=== PATIENT | female | born 1985 | race Caucasian/White ===

== ENCOUNTER 2019-09-29 21:13 | Emergency (ER) | payer BC, SELFPAY ==
[2019-09-29 21:26] VITALS: BP 148/85; PULSE 98; RESP 15; TEMP 36.7; O2SAT 98; BMI 26.6
[2019-09-29 21:29] LABS: Bacteria Urine None Seen; WBC Urine None Seen (0-5/HPF)
--- NOTE | 2019-09-29 21:32 | ED_ITS ---
HPI - General Adult General Chief complaint: Urogenital-Female Stated complaint: states kidney stone Time Seen by Provider: 09/29/19 21:21 Source: patient Mode of arrival: Ambulatory Limitations: no limitations History of Present Illness HPI narrative: 34-year-old female here for evaluation of left-sided flank pain. Patient states that she has had multiple kidney stones in the past. She has had to have lithotripsy in the past. She states that her pain today is very similar to her prior history of kidney stones. Denies any fevers. Still urinating. Pain started on the left side radiating around to the front. Some nausea no vomiting. Has not tried anything for the symptoms prior to arrival. She was also complaining of a yeast infection. Related Data Home Medications Medication Instructions Recorded Confirmed [ CONTROL] #0 06/30/12 ondansetron HCl #0 06/30/12 ASA/Al Hydroxide/Ca Carbonat #0 08/16/12 (#ASPIR-LOX AD) HYDROCODONE/ACET (HYDROCODONE 1 tab PO Q4HP #0 08/16/12 BITARTRATE-ACETAMINOPHEN) acetaminophen [Tylenol Extra 1,000 mg PO Q6HP #0 08/16/12 Strength] lorazepam [Ativan] #0 10/21/16 venlafaxine [Effexor XR] 37.5 mg PO QDAY #0 10/21/16 Previous Rx's Medication Instructions Recorded fluconazole [Diflucan] 100 mg PO DAILY #1 tab 09/29/19 Allergies Allergy/AdvReac Type Severity Reaction Status Date / Time No Known Drug Allergies Allergy Verified 09/29/19 21:26 Review of Systems Constitutional Constitutional: Denies fever(s) Cardiovascular Cardiovascular: Denies chest pain and Denies dyspnea Respiratory Respiratory: Denies dyspnea Gastrointestinal Gastrointestinal: Reports abdominal pain Genitourinary Genitourinary: Reports urinary frequency, Denies dysuria, Reports urinary urgency and Reports vaginal discharge Musculoskeletal Musculoskeletal: Denies myalgias and Denies arthralgias Integumentary/Breasts Skin/Breast: Denies rash Neurologic Neurologic: Denies behavioral changes Psychiatric Psychiatric: Denies behavioral changes Hematologic/Lymphatic Hematologic/Lymphatic: Denies easy bleeding Patient History Medical History Kidney stones (Acute) Social History (Reviewed 12/13/19 @ 03:36 by MOOKIE Orourke Smoking Status: Current every day smoker Smoking Status: Current every day smoker alcohol intake frequency: holidays/special occasions only Substance Use Type: does not use Exam Initial Vital Signs Initial Vital Signs: Vital Signs Temperature 98.1 F 09/29/19 21:26 Pulse Rate 98 H 09/29/19 21:26 Respiratory Rate 15 09/29/19 21:26 Blood Pressure 148/85 H 09/29/19 21:26 Pulse Oximetry 98 09/29/19 21:26 Const General: cooperative and healthy appearing Orientation: alert and awake HENMT Head: normal to inspection and normocephalic Resp Effort & Inspection: normal respiratory effort Auscultation: clear to auscultation bilaterally Cardio Rate: regular rate Rhythm: regular rhythm GI Inspection: non-distended Palpation: soft, No firm and tender (Left flank) Back/Spine/Pelvis Back: CVA tenderness (Left) Skin Lesions: no lesions Rashes: no rashes Neuro General: alert and awake Cognition: normal cognition Speech: speech normal Extrem General: normal to inspection and capillary refill normal Psych Appearance: grossly normal and well kempt Course Orders Ordered: ED Orders 09/29/19 21:18 Urine Chlamydia Gonorrhea PCR Stat Urine Microscopic Stat 09/29/19 21:25 Basic Metabolic Panel Stat 09/29/19 21:34 CT kidney ureter bladder (KUB) Stat Discontinued Medications Fluconazole (Diflucan) 100 mg PO NOW ONE Stop: 09/29/19 23:24 Last Admin: 09/29/19 23:37 Dose: Not Given Documented by: KBROTEM Hydromorphone HCl (Dilaudid) 1 mg IV NOW ONE Stop: 09/29/19 22:48 Last Admin: 09/29/19 23:01 Dose: 1 mg Documented by: MATT Lidocaine HCl 5.4 ml/ Sodium (Chloride) 55.4 mls @ 332.4 mls/hr IV NOW ONE Stop: 09/29/19 21:32 Last Infusion: 09/29/19 22:16 Dose: 0 mls/hr Documented by: Admin: 09/29/19 21:58 Dose: 332.4 mls/hr Documented by: MATT Ketorolac Tromethamine (Toradol) 30 mg IV NOW ONE Stop: 09/29/19 21:32 Last Admin: 09/29/19 21:58 Dose: 30 mg Documented by: MATT Ondansetron HCl (Zofran) 4 mg IV NOW ONE Stop: 09/29/19 22:17 Last Admin: 09/29/19 22:19 Dose: 4 mg Documented by: MATT Vital Signs Vital signs: Vital Signs - 8 hr 09/29/19 21:26 09/29/19 23:04 09/29/19 23:36 Temperature 98.1 F Pulse Rate 98 H 77 78 Respiratory Rate 15 23 13 Blood Pressure 148/85 H 103/88 Blood Pressure [Right Arm] 123/89 Pulse Oximetry 98 97 100 Medical Decision Making Lab Data Lab results reviewed: Yes I reviewed the patient's lab results. Result diagrams: 09/29/19 21:25 Labs: Lab Results 09/29/19 09/29/19 09/29/19 Range/Units 21:18 21:18 21:25 Sodium 136 L (137-145) mmol/L Potassium 3.9 (3.4-5.1) mmol/L Chloride 100 (98-107) mmol/L Carbon Dioxide 27 (22-32) mmol/L BUN 12 (7-17) mg/dL Creatinine 0.80 (0.52-1.04) mg/dL Estimated GFR > 60.0 (>60) mL/min BUN/Creatinine Ratio 15.0 (6-22) Glucose 91 (70-100) mg/dL Calcium 9.8 (8.4-10.2) mg/dL Urine RBC 0-1/hpf (0-5/HPF) Urine WBC None seen (0-5/HPF) Ur Squamous Epith Cells 0-1 /hpf (0-5/HPF) Urine Bacteria None seen (None) Ur Culture Indicated? Cult not indicated Ur Chlamydia DNA (PCR) Not detected N gonorrhoeae DNA (PCR) Not detected Point of Care Testing Test Results Negative Urine Dip Bedside Urine Glucose Negative Bedside Urine Bilirubin - Negative Bedside Urine Ketone - Negative Urine Specific [place] 1.015 Bedside Urine Occult Blood + Bedside Urine pH 7.0 Bedside Urine Protein - Negative Bedside Urine Urobilinogen - Negative Bedside Urine Nitrite - Negative Bedside Urine Leukocytes - Negative Esterase Point of care testing: Point of Care Testing Test Results Negative Urine Dip Bedside Urine Glucose Negative Bedside Urine Bilirubin - Negative Bedside Urine Ketone - Negative Urine Specific [place] 1.015 Bedside Urine Occult Blood + Bedside Urine pH 7.0 Bedside Urine Protein - Negative Bedside Urine Urobilinogen - Negative Bedside Urine Nitrite - Negative Bedside Urine Leukocytes - Negative Esterase Imaging Data CT scan - abdomen: Radiologist's impression: Finding suggestive of a functional cyst in the left adnexa measuring up to 4.8 cm. Other considerations are also possible but less likely. Consider pelvic ultrasound for further evaluation Bilateral nephrolithiasis is described MDM Narrative Medical decision making narrative: Patient does not have a urinary tract infection. Does have blood in her urine. Kidney functions unremarkable. Had a discussion with her regarding her symptoms. Patient would like to have a CT scan to further evaluate the location and size of her kidney stone. The CT scan did not necessarily describe a ureteral stone. She does have small bilateral kidney stones. She also has a 4.8 cm cyst in the left adnexa. Patient is not particularly tender over this area. She did feel better after medications here in the ER. She was afebrile. She does describe which she thinks is a yeast infection. Patient states that she is somewhat concerned about STDs. GC chlamydia are negative. No indication for antibiotics. 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 We did discuss the cyst in the left adnexa. She was given return precautions and follow-up instructions. She expressed understanding and agreement with plan. Discharge Plan Departure Patient Disposition: Home Clinical Impression: Ovarian cyst Qualifiers: Laterality: left Qualified Code(s): N83.202 - Unspecified ovarian cyst, left side Abdominal pain Qualifiers: Abdominal location: unspecified location Qualified Code(s): R10.9 - Unspecified abdominal pain Discharge Date/Time: 09/29/19 23:38 Instructions: DI for Ovarian Cyst, DI for Abdominal Pain-Adult Activity Restrictions/Additional Instructions: You can take ibuprofen for the abdominal pain. I do recommend you follow-up with your primary provider and your OB provider about the ovarian cyst. Return to the emergency department for any new or worsening symptoms Prescriptions: New fluconazole [Diflucan] 100 mg tablet 100 mg PO DAILY Qty: 1 RF: 0 No Action ondansetron HCl 4 MG tablet Qty: 0 RF: 0 [ CONTROL] Qty: 0 RF: 0 ASA/Al Hydroxide/Ca Carbonat (#ASPIR-LOX AD) Qty: 0 RF: 0 acetaminophen [Tylenol Extra Strength] 500 MG tablet 1,000 mg PO Q6HP Qty: 0 RF: 0 HYDROCODONE/ACET (HYDROCODONE BITARTRATE-ACETAMINOPHEN) 1 tab PO Q4HP Qty: 0 RF: 0 venlafaxine [Effexor XR] 37.5 MG capsule,extended release 24hr 37.5 mg PO QDAY Qty: 0 RF: 0 lorazepam [Ativan] 0.5 MG tablet Qty: 0 RF: 0 Referrals: Meng Ramirez DO [Primary Care Provider] -
--- NOTE | 2019-09-29 21:34 | DI.CT.S_ITS ---
PROCEDURE: CT KIDNEY URETER BLADDER (KUB) INDICATIONS: Left-sided pain concern for stone TECHNIQUE: Noncontrast 5 mm thick sections acquired from the diaphragms to the symphysis. 5 mm thick coronal and sagittal reformats were then performed. For radiation dose reduction, the following was used: automated exposure control, adjustment of mA and/or kV according to patient size. COMPARISON: Merged With [facility], CT, IVP (ABD & PEL WWO CONTRAST), 11/19/2017, 16:45. [facility], CT, CT KUB, 12/23/2018, 21:41. Merged With [facility], CT, KIDNEY/ URETER/BLADDER, 11/21/2016, 12:10. FINDINGS: Image quality: Excellent. Lung bases: Lung bases are clear. Heart size is normal. Urinary system: There are small renal calculi bilaterally with 4 tiny 1 mm stone in left kidney and 3 tiny 1-2 mm stones in right kidney. Both kidneys are normal in size. No No hydronephrosis or perinephric fat stranding. A 1.9 cm low density in nodule left kidney is compatible with a cyst. There is actual renal pelvis of the left kidney. Both ureters appear non-dilated throughout their expected courses. No ureteral stones. Bladder wall thickness is normal; no calcified bladder stones. Other solid organs: Liver is normal in size. Gallbladder is normal. Pancreas is normal in contours. Spleen is normal in size. No adrenal nodules. Peritoneum and bowel: Unenhanced bowel loops demonstrate normal wall thickness and caliber. No free fluid or air. Nodes and vessels: No retroperitoneal or mesenteric adenopathy by size criteria. Aorta and inferior vena cava are normal in caliber. Abdominal wall: No ventral hernias. Uterus is normal. There is a 4.7 cm ovarian cyst in the left adnexa. No pathological free fluid. Pelvis: No free pelvic fluid. No inguinal hernias or adenopathy. Bones: No suspicious bony lesions. No vertebral body compression fractures. IMPRESSION: 1. Nephrolithiasis with small renal calculi bilaterally. No hydronephrosis. 2. There is a 4.7 cm left ovarian cyst. Recommend pelvic ultrasound for followup. No significant discrepancy with the shift superintendent radiology preliminary report. Dictated by: Nona Oconnor M.D. on 09/30/2019 at 7:15 Approved by: Nona Oconnor M.D. on 09/30/2019 at 7:23
[2019-09-29 21:38] LABS: Culture Indicated Urine Cult Not Indicated; RBC Urine 0-1/HPF (0-5/HPF); Squamous Epithelial Cell Urine 0-1 /HPF (0-5/HPF)
[2019-09-29] MEDS: KETOROLAC 60 MG/2 ML VIAL 30 MG IV (21:58)
[2019-09-29] MEDS: LIDOCAINE 2% 5.4 ML in SODIUM CHLORIDE 0.9% 50 ML 332.4 ML IV (21:58)
[2019-09-29 22:11] LABS: Blood Urea Nitrogen 12 mg/dL (7-17); Calcium 9.8 mg/dL (8.4-10.2); Carbon Dioxide 27 mmol/L (22-32); Chloride 100 mmol/L (98-107); Estimated Glomerular Filt Rate > 60.0 mL/min (>60); Glucose 91 mg/dL (70-100); HEMOLYSIS < 15 (0-50); Potassium 3.9 mmol/L (3.4-5.1); Sodium 136 mmol/L (137-145)
[2019-09-29] MEDS: ONDANSETRON 4 MG/2 ML INJ IV (22:19)
[2019-09-29] MEDS: HYDROMORPHONE 1 MG INJ IV (23:01)
[2019-09-29 23:04] VITALS: BP 123/89; PULSE 77; RESP 23; O2SAT 97
[2019-09-29 23:36] VITALS: BP 103/88; PULSE 78; RESP 13; O2SAT 100
[2019-09-30 00:56] LABS: Urine N gonorrhoeae NOT DETECTED
[2019-09-30 00:59] LABS: Urine Chlamydia NOT DETECTED
== END 2019-09-29 23:38 | disposition home or self-care (01) ==
PROVIDERS: Emergency Provider Emergency Medicine; Family Provider Family Medicine; PCP Family Medicine
DX: N83.202 Unspecified ovarian cyst, left side (principal); R10.9 Unspecified abdominal pain
CPT/HCPCS: 36415; 74176; 80048; 81003; 81015; 81025; 87491; 87591; 96365; 96375; 99284; J1170; J1885; J2405

== ENCOUNTER 2019-12-06 17:25 | Emergency (ER) | payer BC, SELFPAY ==
[2019-12-06 17:31] VITALS: BP 181/92; PULSE 103; RESP 24; TEMP 37.2; O2SAT 100
[2019-12-06 18:03] LABS: Add Manual Diff / Slide Review NO; Basophils Absolute Auto 100 /uL (0-100); Basophils Percent Auto 0.5 % (0-2); Eosinophils Absolute Auto 0 /uL (0-450); Eosinophils Percent Auto 0.1 % (2-4); Hematocrit 30.4 % (36-46); Hemoglobin 9.6 g/dL (12.0-16.0); Lymphocytes Absolute Auto 1300 /uL (1100-4500); Lymphocytes Percent Auto 11.1 % (25-40); Mean Corpuscular HGB Conc 31.5 % (30-36); Mean Corpuscular Hemoglobin 23.6 PG (26-34); Monocytes Absolute Auto 400 /uL (0-900); Monocytes Percent Auto 3.1 % (3-14); Neutrophils Absolute Auto 9700 /uL (1500-7000); Neutrophils Percent Auto 85.2 % (50-75); Platelet Count 362 X10^3/uL (150-400); Red Blood Cell Count 4.06 X10^6/uL (4.0-5.2); Red Cell Distribution Width 16.2 % (11.6-14.8); White Blood Cell Count 11.4 X10^3/uL (4.5-11.0)
--- NOTE | 2019-12-06 18:04 | ED_ITS ---
HPI - General Chief complaint: Abdominal Pain Stated complaint: excruciating pain/poss kidney stones or infection Time Seen by Provider: 12/06/19 18:04 Source: patient and old records reviewed Mode of arrival: Ambulatory Limitations: no limitations History of Present Illness HPI Narrative: This is a 34-year-old female who comes to the emergency department with complaint of left-sided abdominal and back pain. Patient states it came on suddenly about an hour to 2 hours ago. Patient states that it feels somewhat similar to when she had kidney stones but it is lower down the typically in the front. She is nauseated when she has significant amount of pain. She has not had any fevers. She has not had any vomiting. She states she was not have any pain prior to this. She has not had any issues with diarrhea, constipation or black or bloody stools. She has had some frequency but no dysuria urgency. No vaginal bleeding or discharge patient test is positive she states she has been on oral contraceptives and this is an unexpected . She is not sure when her last period is. Patient is on lamotrigine which was started about a week ago for bipolar 1 which she states has been helpful she states that her symptoms have been mild and she does not feel that they are causing issues at this time. She occasionally takes trazodone to help with sleep. 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 She follows with Dr. Reece at the [facility]. Hx Last Menstrual Period: patient unsure, on OCP's Patient : Yes Related Data Home Medications Medication Instructions Recorded Confirmed lamotrigine 25 mg PO QPM 12/06/19 12/06/19 norgestimate-ethinyl estradiol 1 tab PO QPM 12/06/19 12/06/19 [Ortho Tri-Cyclen (28)] trazodone 50 mg PO BEDTIME PRN 12/06/19 12/06/19 Allergies Allergy/AdvReac Type Severity Reaction Status Date / Time No Known Drug Allergies Allergy Verified 09/29/19 21:26 Review of Systems Review of Systems ROS Unobtainable: All systems reviewed & are unremarkable except as noted in HPI and below PMFSH - Past Medical History Additional medical history: bipolar 1 hx substance abuse with xanax and pain medications Surgical history: Reports appendectomy [employer] history: Reports No [employer] History Hx Last Menstrual Period: patient unsure, on OCP's Patient : Yes Psychiatric history: Reports bipolar Exam Narrative Exam Narrative: GENERAL: Alert and oriented x three, well-nourished female in mild distress. HEENT: Head normocephalic, atraumatic, EOMI, pupils reactive, face symmetric, moist mucous membranes NECK: Supple, full range of motion CARDIOVASCULAR: Regular rate and rhythm without murmurs, rubs or gallops. RESPIRATORY: Breath sounds equal bilaterally, no wheezes rales or rhonchi. ABDOMEN: Soft, positive moderate left lower and left upper abdominal pain. Normoactive bowel sounds all 4 quadrants. No guarding or rebound, rigidity, no mass. Unable to palpate uterus abdominally. No bruit or pulsatile mass. : Bilateral CVA tenderness EXTREMITIES: Normal range of motion, no clubbing or edema. Neurovascularly intact NEUROLOGICAL: Cranial nerves II through XII grossly intact. Moving all extremities SKIN: Warm, dry, no petechiae, no rashes or lesions. Initial Vital Signs Initial Vital Signs: Vital Signs Temperature 98.9 F 12/06/19 17:31 Pulse Rate 103 H 12/06/19 17:31 Respiratory Rate 24 12/06/19 17:31 Blood Pressure 181/92 H 12/06/19 17:31 Pulse Oximetry 100 12/06/19 17:31 Course Orders Ordered: ED Orders 12/06/19 17:35 ABO RH Type Stat Basic Metabolic Panel Stat Complete Blood Count AUTO DIFF Stat HCG Quantitative /Beta subunit Stat 12/06/19 18:20 US abdomen complete Stat US pelvic complete Stat 12/06/19 18:57 Lamotrigine Lamictal Stat Discontinued Medications Acetaminophen (Tylenol) 975 mg PO NOW ONE Stop: 12/06/19 18:21 Last Admin: 12/06/19 18:40 Dose: 975 mg Documented by: JAQUELINE Sodium Chloride (Normal Saline 0.9%) 1,000 mls @ 1,000 mls/hr IV BOLUS ONE Stop: 12/06/19 19:19 Last Infusion: 12/06/19 20:46 Dose: 0 mls/hr Documented by: Admin: 12/06/19 18:40 Dose: 1,000 mls/hr Documented by: JAQUELINE Ketorolac Tromethamine (Toradol) 15 mg IV NOW ONE Stop: 12/06/19 20:32 Last Admin: 12/06/19 20:46 Dose: 15 mg Documented by: MARIETTA Ondansetron HCl (Zofran) 4 mg IV NOW ONE Stop: 12/06/19 18:26 Last Admin: 12/06/19 18:40 Dose: 4 mg Documented by: JAQUELINE Vital Signs Vital signs: Vital Signs - 8 hr 12/06/19 17:31 12/06/19 18:54 12/06/19 21:02 Temperature 98.9 F Pulse Rate 88 72 Pulse Rate [Right] 103 H Respiratory Rate 24 16 16 Blood Pressure 129/80 Blood Pressure [Right Arm] 181/92 H 129/75 Pulse Oximetry 100 100 100 MDM - OB/Uterine Contractions Lab Data Attestation: I reviewed the patient's lab results. Result diagrams: 12/06/19 17:35 12/06/19 17:35 Labs: Lab Results 12/06/19 12/06/19 12/06/19 Range/Units 17:35 17:35 17:35 WBC 11.4 H (4.5-11.0) X10^3/uL RBC 4.06 (4.0-5.2) X10^6/uL Hgb 9.6 L (12.0-16.0) g/dL Hct 30.4 L (36-46) % MCV 75.0 L (80-100) fL MCH 23.6 L (26-34) PG MCHC 31.5 (30-36) % RDW 16.2 H (11.6-14.8) % Plt Count 362 (150-400) X10^3/uL Neut % (Auto) 85.2 H (50-75) % Lymph % (Auto) 11.1 L (25-40) % [place] % (Auto) 3.1 (3-14) % Eos % (Auto) 0.1 L (2-4) % Baso % (Auto) 0.5 (0-2) % Neut # (Auto) 9700 H (5667-0658) /uL Lymph # (Auto) 1300 (2836-2701) /uL [place] # (Auto) 400 (0-900) /uL Eos # (Auto) 0 (0-450) /uL Baso # (Auto) 100 (0-100) /uL Sodium 137 (137-145) mmol/L Potassium 4.2 (3.4-5.1) mmol/L Chloride 105 (98-107) mmol/L Carbon Dioxide 22 (22-32) mmol/L BUN 7 (7-17) mg/dL Creatinine 0.70 (0.52-1.04) mg/dL Estimated GFR > 60.0 (>60) mL/min BUN/Creatinine Ratio 10.0 (6-22) Glucose 103 H (70-100) mg/dL Calcium 10.0 (8.4-10.2) mg/dL HCG, Quant 252.30 mIU/mL Blood Type 12/06/19 Range/Units 17:35 WBC (4.5-11.0) X10^3/uL RBC (4.0-5.2) X10^6/uL Hgb (12.0-16.0) g/dL Hct (36-46) % MCV (80-100) fL MCH (26-34) PG MCHC (30-36) % RDW (11.6-14.8) % Plt Count (150-400) X10^3/uL Neut % (Auto) (50-75) % Lymph % (Auto) (25-40) % [place] % (Auto) (3-14) % Eos % (Auto) (2-4) % Baso % (Auto) (0-2) % Neut # (Auto) (1630-2422) /uL Lymph # (Auto) (2655-7676) /uL [place] # (Auto) (0-900) /uL Eos # (Auto) (0-450) /uL Baso # (Auto) (0-100) /uL Sodium (137-145) mmol/L Potassium (3.4-5.1) mmol/L Chloride (98-107) mmol/L Carbon Dioxide (22-32) mmol/L BUN (7-17) mg/dL Creatinine (0.52-1.04) mg/dL Estimated GFR (>60) mL/min BUN/Creatinine Ratio (6-22) Glucose (70-100) mg/dL Calcium (8.4-10.2) mg/dL HCG, Quant mIU/mL Blood Type O Positive Point of Care Testing Test Results Positive Urine Dip Bedside Urine Glucose Negative Bedside Urine Bilirubin - Negative Bedside Urine Ketone - Negative Urine Specific [place] 1.010 Bedside Urine Occult Blood - Negative Bedside Urine pH 6.5 Bedside Urine Protein - Negative Bedside Urine Urobilinogen - Negative Bedside Urine Nitrite - Negative Bedside Urine Leukocytes - Negative Esterase Imaging Data US - OB: Radiologist's Impression: [address] [id number] Ultrasound Report Signed Patient: Kristine Renteria CMR#: [id number] : 1985Acct:[id number] Age/Sex: 34 / FDate of Service: 12/06/19 Loc: ED Accession Number: [id number] Procedure: US pelvic complete Ordering Provider: Kamilla Malcolm D.O. PROCEDURE: US PELVIC COMPLETE INDICATIONS: POSITIVE HCG; PAIN TECHNIQUE: Real-time scanning was performed of the pelvic organs, with image documentation. Additional endovaginal scanning was necessary due to incomplete visualization of the adnexal and endometrial structures by transabdominal scanning. COMPARISON: [facility], US, US ABDOMEN COMPLETE, 12/06/2019, 19:06. FINDINGS: Transabdominal scanning: Limited scanning through the kidneys shows no hydronephrosis. No definite pathologic free abdominal or pelvic fluid, but there is a small amount of free fluid in the posterior cul-de-sac containing low level internal echoes. Endovaginal scanning: Uterus: Uterus is normal in size at 4.9 x 6.7 x 9.4 cm. The endometrium measures 30.6 mm in combined thickness. There is no visualized evidence of an intrauterine gestation. Note is made of a left-sided anterior intramural 2.3 cm maximal dimension fibroid. Ovaries: The right ovary measures 2.3 x 1.7 x 1.5 cm and demonstrates a complex masslike structure measuring 1.1 x 1.6 x 0.9 cm with minimal elevated peripheral vascularity. The left ovary measures 2.0 x 3.9 x 4.3 cm and contains a 1.9 cm and 1.3 cm complex cyst with increased peripheral vascularity. IMPRESSION: 13.6 mm endometrial lining thickness, well-visualized, without sonographic evidence of an intrauterine gestation. Please correlate with quantitative beta hCG given the fact that the ovaries bilaterally containing complex cystic structures with increased peripheral vascularity which could represent an ectopic is, or inflam matory cysts. There is a minimal degree of free fluid in the posterior cul-de-sac containing low level internal echoes. This could represent a manifestation of slight hemoperitoneum in the setting of ectopic but a ruptured ovarian cyst with hemorrhage associated also could produce exactly that appearance. Quantitative beta hCG is necessary for accurate interpretation of these findings. Dictated by: Jacob Winters M.D. on 12/06/2019 at 20:02 Approved by: Jacob Winters M.D. on 12/06/2019 at 20:06 US - abdomen: Radiologist's Impression: Kristine Renteria 34 F [address] [address] Ultrasound Report Signed Patient: Kristine Renteria CMR#: [id number] : 1985Acct:[id number] Age/Sex: 34 / FDate of Service: 12/06/19 Loc: ED Accession Number: [id number] Procedure: US abdomen complete Ordering Provider: Kamilla Malcolm D.O. PROCEDURE: US ABDOMEN COMPLETE INDICATIONS: BACK PAIN TECHNIQUE: Real-time scanning was performed of the abdominal and retroperitoneal organs, with image documentation. COMPARISON: None. FINDINGS: Liver: Liver is normal in size and homogeneous in echotexture. Gallbladder: The gallbladder appears normal Biliary ducts: Intrahepatic bile ducts are non-dilated. Extrahepatic bile duct caliber measures 5.4 mm. Normal is 6-7 mm or less in diameter, or 10 mm or less post-cholecystectomy. Pancreas: Not visualized due to bowel gas. Spleen: Spleen is normal in size and homogeneous in echotexture. Kidneys: Kidneys are normal in size and echotexture. Right kidney measures 11.6 cm long; left kidney measures 12.8 cm long. No hydronephrosis or left-sided nephrolithiasis. No solid masses. There is a 5 mm nonobstructing stone at the upper collecting system of the right kidney and a simple cyst at the left kidney measuring only 2.2 cm in maximal dimension. Aorta: Visualized aorta is normal in caliber at less than 3 cm. Iliacs: Proximal common iliac arteries are normal in caliber at less than 2.5 cm. IVC: Intrahepatic inferior vena cava is patent. Miscellaneous: No free abdominal fluid. Depending on the clinical status followup by CT KUB may become necessary. An ultrasound study will not frequently visualized ureteral calculi due to overlying bowel gas. The pancreas could not be seen due to bowel gas, for example. IMPRESSION: 5 mm nonobstructive right renal collecting system calculus, no left- sided urinary tract stone is found. Dictated by: Jacob Winters M.D. on 12/06/2019 at 19:59 Approved by: Jacob Winters M.D. on 12/06/2019 at 20:02 [facility] Narrative Medical decision making narrative: Patient comes in with left abdominal and back pain. She states it is somewhat similar to kidney stones but she also has a positive test which was unexpected and she is unsure of her dates. HCG and lab work was ordered patient is slightly tachycardic her hemoglobin is 9 with no comparisons. But patient states this is improved from her normal hemoglobin. Plan for evaluation for ectopic although she has not had any vaginal bleeding noted. Signs of infection. White count is 11.4 she has microcytosis on her CBC. Electrolytes are normal with normal renal function. Blood type is O positive. Patient imaging shows a stone in the right kidney but no no stone noted on the left. Patient's pelvic ultrasound shows no evidence of intrauterine gestation, ovaries bilaterally containing complex structures with increased peripheral vascularity which could represent ectopic or inflammatory cysts there is a minimal degree of free fluid in the posterior cul-de-sac could represent a slight hemoperitoneum but a ruptured ovarian cyst with hemorrhage associated could produce that as well. Case was discussed with Dr. Guallpa, we discussed with an hCG of 250 were not likely to be able to visualize a could not completely rule out ectopic the patient has been hemodynamically stable with known anemia according the patient herself. Patient plan is for repeat hCG in 48 hours and follow-up with OB doctor Guallpa states they are happy to follow with her. Discussed with patient if she has any difficulty with follow-up to return here for repeat HCG in assistance. I discussed signs and symptoms. Patient has been taking lamotrigine and I encouraged her to discuss with OBGYN unless she feels she would be safe to stop the medication. Discharge Plan Departure Patient Disposition: Home Clinical Impression: Abdominal pain affecting Discharge Date/Time: 12/06/19 21:04 Instructions: DI for Abdominal Pain -- Early Activity Restrictions/Additional Instructions: Follow up for repeat HCG level in 2 days and for follow up with [employer] for recheck. Call for an appointment. If you have difficulty getting into the OB office for repeat HCG level you may return to the ER. Your HCG level today is 253 at this level we cannot often visualize a and cannot rule out possible ectopic . You may take Tylenol up to 1000mg every 8 hours for pain. Return to ER for fevers greater than 100.4F, rapidly worsening pain, persistent vomiting, passing out, abdominal or flank pain, vaginal bleeding, black or bloody stools or other new or concerning symptoms. Prescriptions: No Action trazodone 50 mg Tablet 50 mg PO BEDTIME PRN (Reason: Sleep) RF: 0 lamotrigine 25 mg Tablet 25 mg PO QPM RF: 0 norgestimate-ethinyl estradiol [Ortho Tri-Cyclen (28)] 0.18/0.215/0.25 mg-35 mcg (28) Tablet 1 tab PO QPM RF: 0 Referrals: Danielle Guallpa CNM [Advanced Assistant Kitchen Manager] - Salbador Ludwig [Primary Care Provider] -
[2019-12-06 18:14] LABS: Blood Urea Nitrogen 7 mg/dL (7-17); Carbon Dioxide 22 mmol/L (22-32); Chloride 105 mmol/L (98-107); Estimated Glomerular Filt Rate > 60.0 mL/min (>60); Glucose 103 mg/dL (70-100); HEMOLYSIS < 15 (0-50); Potassium 4.2 mmol/L (3.4-5.1); Sodium 137 mmol/L (137-145)
--- NOTE | 2019-12-06 18:20 | DI.US.S_ITS ---
PROCEDURE: US PELVIC COMPLETE INDICATIONS: POSITIVE HCG; PAIN TECHNIQUE: Real-time scanning was performed of the pelvic organs, with image documentation. Additional endovaginal scanning was necessary due to incomplete visualization of the adnexal and endometrial structures by transabdominal scanning. COMPARISON: [facility], US, US ABDOMEN COMPLETE, 12/06/2019, 19:06. FINDINGS: Transabdominal scanning: Limited scanning through the kidneys shows no hydronephrosis. No definite pathologic free abdominal or pelvic fluid, but there is a small amount of free fluid in the posterior cul-de-sac containing low level internal echoes. Endovaginal scanning: Uterus: Uterus is normal in size at 4.9 x 6.7 x 9.4 cm. The endometrium measures 30.6 mm in combined thickness. There is no visualized evidence of an intrauterine gestation. Note is made of a left-sided anterior intramural 2.3 cm maximal dimension fibroid. Ovaries: The right ovary measures 2.3 x 1.7 x 1.5 cm and demonstrates a complex masslike structure measuring 1.1 x 1.6 x 0.9 cm with minimal elevated peripheral vascularity. The left ovary measures 2.0 x 3.9 x 4.3 cm and contains a 1.9 cm and 1.3 cm complex cyst with increased peripheral vascularity. IMPRESSION: 13.6 mm endometrial lining thickness, well-visualized, without sonographic evidence of an intrauterine gestation. Please correlate with quantitative beta hCG given the fact that the ovaries bilaterally containing complex cystic structures with increased peripheral vascularity which could represent an ectopic is, or inflammatory cysts. There is a minimal degree of free fluid in the posterior cul-de-sac containing low level internal echoes. This could represent a manifestation of slight hemoperitoneum in the setting of ectopic but a ruptured ovarian cyst with hemorrhage associated also could produce exactly that appearance. Quantitative beta hCG is necessary for accurate interpretation of these findings. Dictated by: Jacob Winters M.D. on 12/06/2019 at 20:02 Approved by: Jacob Winters M.D. on 12/06/2019 at 20:06
--- NOTE | 2019-12-06 18:20 | DI.US.S_ITS ---
PROCEDURE: US ABDOMEN COMPLETE INDICATIONS: BACK PAIN TECHNIQUE: Real-time scanning was performed of the abdominal and retroperitoneal organs, with image documentation. COMPARISON: None. FINDINGS: Liver: Liver is normal in size and homogeneous in echotexture. Gallbladder: The gallbladder appears normal Biliary ducts: Intrahepatic bile ducts are non-dilated. Extrahepatic bile duct caliber measures 5.4 mm. Normal is 6-7 mm or less in diameter, or 10 mm or less post-cholecystectomy. Pancreas: Not visualized due to bowel gas. Spleen: Spleen is normal in size and homogeneous in echotexture. Kidneys: Kidneys are normal in size and echotexture. Right kidney measures 11.6 cm long; left kidney measures 12.8 cm long. No hydronephrosis or left-sided nephrolithiasis. No solid masses. There is a 5 mm nonobstructing stone at the upper collecting system of the right kidney and a simple cyst at the left kidney measuring only 2.2 cm in maximal dimension. Aorta: Visualized aorta is normal in caliber at less than 3 cm. Iliacs: Proximal common iliac arteries are normal in caliber at less than 2.5 cm. IVC: Intrahepatic inferior vena cava is patent. Miscellaneous: No free abdominal fluid. Depending on the clinical status followup by CT KUB may become necessary. An ultrasound study will not frequently visualized ureteral calculi due to overlying bowel gas. The pancreas could not be seen due to bowel gas, for example. IMPRESSION: 5 mm nonobstructive right renal collecting system calculus, no left-sided urinary tract stone is found. Dictated by: Jacob Winters M.D. on 12/06/2019 at 19:59 Approved by: Jacob Winters M.D. on 12/06/2019 at 20:02
[2019-12-06] MEDS: ONDANSETRON 4 MG/2 ML INJ IV (18:40)
[2019-12-06] MEDS: SODIUM CHLORIDE 0.9% 1,000 ML 1000 ML IV (18:40)
[2019-12-06] MEDS: ACETAMINOPHEN 325 MG TABLET 975 MG PO (18:40)
[2019-12-06 18:54] VITALS: BP 129/75; PULSE 88; RESP 16; O2SAT 100
[2019-12-06] MEDS: KETOROLAC 60 MG/2 ML VIAL 15 MG IV (20:46)
[2019-12-06 21:02] VITALS: BP 129/80; PULSE 72; RESP 16; O2SAT 100
[2019-12-12 09:30] LABS: Lamotrigine Lamictal < 0.5 mcg/mL (4.0-18.0)
== END 2019-12-06 21:04 | disposition home or self-care (01) ==
PROVIDERS: Emergency Medicine; Emergency Provider Emergency Medicine; Family Provider Family Medicine; PCP Family Medicine
DX: O26.899 Other specified pregnancy related conditions, unspecified trimester (principal); R10.9 Unspecified abdominal pain; M54.9 Dorsalgia, unspecified
CPT/HCPCS: 36415; 76700; 76830; 76856; 80048; 80175; 81003; 81025; 84702; 85025; 86900; 86901; 96361; 96374; 96375; 99284; J1885; J2405

== ENCOUNTER → 2019-12-09 12:45 | Outpatient (CLI) | payer BC, SELFPAY ==
[2019-12-09 13:33] LABS: HCG Quantitative /Beta subunit 1092.1 mIU/mL
== END ==
PROVIDERS: Family Provider Family Medicine; PCP Family Medicine; Referring Provider Nurse Practitioner Obstetrics & Gynecology; Visit Provider Nurse Practitioner Obstetrics & Gynecology
DX: Z34.01 Encounter for supervision of normal first pregnancy, first trimester (principal); R10.2 Pelvic and perineal pain
CPT/HCPCS: 36415; 84702

== ENCOUNTER 2020-07-12 05:16 | Emergency (ER) | payer OTHER, SELFPAY ==
[2020-07-12] VITALS (7 sets, daily range): BP systolic 129–147; BP diastolic 75–98; PULSE 53–86; RESP 15–17; TEMP 36.9; O2SAT 96–99; BMI 29.9
--- NOTE | 2020-07-12 05:50 | ED.ABDPAIN ---
HPI - Abdominal Pain <Meng Hughes MD - Last Filed: 07/12/20 18:05> General Chief Complaint: Urogenital-Female Stated Complaint: REALLY BAD ABD PAIN X 2 DAYS Time Seen by Provider: 07/12/20 05:27 Source: patient Mode of arrival: Ambulatory Limitations: no limitations History of Present Illness HPI narrative: [facility] and treated for UTI. Started with left lower pelvic pain and slight left flank pain. Patient states history of kidney stones and pyelonephritis in the past. She states also has history UTIs. Pain worsened today. Also had some vaginal spotting. Patient has a Mirena/IUD. Not had a period since implantation earlier this year. Has had nausea. No fever chills. Patient states feels similar to kidney stone or pyelonephritis in the past with this change pain in the past 2 days. Patient treated with Keflex for UTI from [facility]. 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 Related Data Home Medications ?Medication ?Instructions ?Recorded ?Confirmed alprazolam 1 mg tablet 1 mg PO BID 04/12/24 05/30/24 clonazepam 1 mg tablet 1 mg PO BID 04/12/24 05/30/24 dextroamphetamine-amphetamine 5 mg 5 mg PO DAILY 04/12/24 05/30/24 tablet (Adderall) folic acid-vit B6-vit B12 2.5 1 tab PO DAILY 04/12/24 05/30/24 mg-25 mg-2 mg tablet (WesTab Max) ondansetron 4 mg disintegrating 8 mg PO TID-QID PRN nausea and 04/12/24 05/30/24 tablet vomiting sumatriptan succinate 100 mg tablet See Rx Instructions PO .COMPLEX 04/12/24 05/30/24 Previous Rx's ?Medication ?Instructions ?Recorded cyclobenzaprine 10 mg tablet 10 mg PO BID PRN muscle spasm #28 09/03/21 tabs phenazopyridine 200 mg tablet 200 mg PO TID PRN pain 6 doses #6 10/20/21 (Pyridium) tabs ibuprofen 800 mg tablet 800 mg PO TID PRN pain #30 tabs 01/28/23 Allergies Allergy/AdvReac Type Severity Reaction Status Date / Time prochlorperazine (From AdvReac Verified 05/30/24 13:45 Compazine) Review of Systems <Meng Hughes MD - Last Filed: 07/12/20 18:05> Review of Systems Narrative: GENERAL: Denies chills, fatigue, malaise, fever, sweats. HEENT: Denies sinus pain, ear pain, sore throat, difficulty swallowing, dizziness. RESPIRATORY: Denies dyspnea, cough, wheezing, hemoptysis, sputum. CARDIOVASCULAR: Denies chest pain, palpitations, orthopnea, edema, GASTROINTESTINAL: Complains nausea, denies vomiting, complains abdominal pain, denies diarrhea, constipation, melena. : Complains dysuria, frequency, denies incontinence, hematuria, urinary retention. MUSCULOSKELETAL: denies weakness, joint pain, or bony pain SKIN: Denies rash, skin lesions NEUROLOGIC: Denies weakness, headache, numbness, change in speech, confusion, seizures, incoordination. PSYCHIATRIC: No concerning psychosocial issues. ROS Unobtainable: All systems reviewed & are unremarkable except as noted in HPI and below Patient History <Meng Hughes MD - Last Filed: 07/12/20 18:05> Medical History (Updated 05/27/24 @ 10:38 by Leticia Ortiz RN) S/P extracorporeal shock wave therapy Anemia Chronic UTI PTSD (post-traumatic stress disorder) Renal colic on right side History of nephrolithiasis Right nephrolithiasis History of posttraumatic stress disorder (PTSD) Hx of nephrolithotomy with removal of calculi History of chronic urinary tract infection Hx of cervical cancer History of anemia Migraine Kidney stones Surgical History (Updated 04/19/24 @ 08:40 by Yasmin Corcoran RN) Hx of cystoscopy History of ureter stent Hx of appendectomy Social History marital status: number of children: 3 household members: none occupational status: employed 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 Well-nourished, well-developed patient, in no distress, not toxic HEAD: Atraumatic. Normocephalic. EYES: Pupils equal round and reactive. Extraocular motions intact. No scleral icterus. No injection or drainage. ENT: Nose without bleeding, purulent drainage. Throat without erythema, tonsillar hypertrophy or exudate. Airway patent. NECK: Trachea midline. Non tender CARDIOVASCULAR: Regular rate and rhythm without murmurs, gallops, or rubs. RESPIRATORY: Clear to auscultation. Breath sounds equal bilaterally. No wheezes, rales, or rhonchi. GASTROINTESTINAL: Abdomen soft, tender to touch left lower quadrant, no rebound tenderness bowel sounds present, no peritoneal signs : will Thompson at bedside to assist, normal external exam. No vaginal discharge or bleeding. No discharge. No CMT. No lesions. Mild left adnexal tenderness EXTREMITIES: No edema or joint tenderness. BACK: Nontender without deformity or crepitance. Mild left CVA tenderness NEURO: AOx4. SKIN: No rash or erythema of visible areas PSYCH: Not anxious, is cooperative Initial Vital Signs Initial Vital Signs: Vital Signs Temperature 98.4 F 07/12/20 05:24 Pulse Rate 86 07/12/20 05:24 Respiratory Rate 17 07/12/20 05:24 Blood Pressure 135/95 H 07/12/20 05:24 Pulse Oximetry 99 07/12/20 05:24 Oxygen Delivery Method Room Air 07/12/20 05:24 <Annamarie Mojica MD - Last Filed: 07/12/20 10:04> Initial Vital Signs Initial Vital Signs: Vital Signs Temperature 98.4 F 07/12/20 05:24 Pulse Rate 86 07/12/20 05:24 Respiratory Rate 17 07/12/20 05:24 Blood Pressure 135/95 H 07/12/20 05:24 Pulse Oximetry 99 07/12/20 05:24 Oxygen Delivery Method Room Air 07/12/20 05:24 Course <Meng Hughes MD - Last Filed: 07/12/20 18:05> Course Course Narrative: Time 7:[address] mojica, awaiting CT scan results, may need pelvic ultrasound pending CT results. Orders Ordered: Discontinued Medications Sodium Chloride (Normal Saline 0.9%) 1,000 mls @ 1,000 mls/hr IV BOLUS ONE Stop: 07/12/20 06:47 Last Infusion: 07/12/20 07:34 Dose: Infused Documented By: Admin: 07/12/20 05:56 Dose: 1,000 mls/hr Documented By: MM Magnesium Citrate (Magnesium Citrate 300 Ml Solution) 300 ml PO NOW ONE Stop: 07/12/20 09:38 Last Admin: 07/12/20 09:53 Dose: 300 ml Documented By: AMV Methylprednisolone (Methylprednisolone 125 Mg/2 Ml Vial) 60 mg IV NOW ONE Stop: 07/12/20 07:37 Last Admin: 07/12/20 07:43 Dose: 60 mg Documented By: AMV Morphine Sulfate (Morphine 4 Mg/Ml Inj) 4 mg IV NOW ONE Stop: 07/12/20 06:08 Last Admin: 07/12/20 06:10 Dose: 4 mg Documented By: MM Morphine Sulfate (Morphine 4 Mg/Ml Inj) 4 mg IV NOW ONE Stop: 07/12/20 06:54 Last Admin: 07/12/20 07:00 Dose: 4 mg Documented By: KG Ondansetron HCl (Ondansetron 4 Mg/2 Ml Inj) 4 mg IV NOW ONE Stop: 07/12/20 05:49 Last Admin: 07/12/20 05:56 Dose: 4 mg Documented By: MM Vital Signs Vital signs: Vital Signs - 8 hr 07/12/20 05:24 07/12/20 07:00 07/12/20 07:36 Temperature 98.4 F Pulse Rate 86 66 53 L Respiratory Rate 17 15 Blood Pressure 135/95 H 140/75 Pulse Oximetry 99 98 98 07/12/20 08:00 07/12/20 08:30 07/12/20 08:31 Temperature Pulse Rate 56 L 56 L Respiratory Rate Blood Pressure 129/86 147/98 H Pulse Oximetry 98 99 99 07/12/20 09:00 Temperature Pulse Rate 53 L Respiratory Rate Blood Pressure 134/86 Pulse Oximetry 96 <Annamarie Mojica MD - Last Filed: 07/12/20 10:04> Orders Ordered: Discontinued Medications Sodium Chloride (Normal Saline 0.9%) 1,000 mls @ 1,000 mls/hr IV BOLUS ONE Stop: 07/12/20 06:47 Last Infusion: 07/12/20 07:34 Dose: Infused Documented By: Admin: 07/12/20 05:56 Dose: 1,000 mls/hr Documented By: MM Magnesium Citrate (Magnesium Citrate 300 Ml Solution) 300 ml PO NOW ONE Stop: 07/12/20 09:38 Last Admin: 07/12/20 09:53 Dose: 300 ml Documented By: AMV Methylprednisolone (Methylprednisolone 125 Mg/2 Ml Vial) 60 mg IV NOW ONE Stop: 07/12/20 07:37 Last Admin: 07/12/20 07:43 Dose: 60 mg Documented By: AMV Morphine Sulfate (Morphine 4 Mg/Ml Inj) 4 mg IV NOW ONE Stop: 07/12/20 06:08 Last Admin: 07/12/20 06:10 Dose: 4 mg Documented By: MM Morphine Sulfate (Morphine 4 Mg/Ml Inj) 4 mg IV NOW ONE Stop: 07/12/20 06:54 Last Admin: 07/12/20 07:00 Dose: 4 mg Documented By: KG Ondansetron HCl (Ondansetron 4 Mg/2 Ml Inj) 4 mg IV NOW ONE Stop: 07/12/20 05:49 Last Admin: 07/12/20 05:56 Dose: 4 mg Documented By: MM Vital Signs Vital signs: Vital Signs - 8 hr 07/12/20 05:24 07/12/20 07:00 07/12/20 07:36 Temperature 98.4 F Pulse Rate 86 66 53 L Respiratory Rate 17 15 Blood Pressure 135/95 H 140/75 Pulse Oximetry 99 98 98 07/12/20 08:00 07/12/20 08:30 07/12/20 08:31 Temperature Pulse Rate 56 L 56 L Respiratory Rate Blood Pressure 129/86 147/98 H Pulse Oximetry 98 99 99 07/12/20 09:00 Temperature Pulse Rate 53 L Respiratory Rate Blood Pressure 134/86 Pulse Oximetry 96 MDM - Abdominal Pain <Meng Hughes MD - Last Filed: 07/12/20 18:05> Differential Diagnosis Differential diagnosis: Likely acute appendicitis, calculus of kidney, diverticulitis and other (Pyelonephritis) Lab Data 07/12/20 05:30 07/12/20 05:30 Labs: Lab Results 07/12/20 07/12/20 Range/Units 05:30 06:12 WBC 8.3 (4.5-11.0) X10^3/uL RBC 4.36 (4.0-5.2) X10^6/uL Hgb 12.1 (12.0-16.0) g/dL Hct 35.8 L (36-46) % MCV 82.2 (80-100) fL MCH 27.7 (26-34) PG MCHC 33.7 (30-36) % RDW 18.3 H (11.6-14.8) % Plt Count 306 (150-400) X10^3/uL Neut % (Auto) 77.6 H (50-75) % Lymph % (Auto) 15.7 L (25-40) % [place] % (Auto) 5.3 (3-14) % Eos % (Auto) 0.8 L (2-4) % Baso % (Auto) 0.6 (0-2) % Neut # (Auto) 6400 (8065-5169) /uL Lymph # (Auto) 1300 (9527-8999) /uL [place] # (Auto) 400 (0-900) /uL Eos # (Auto) 100 (0-450) /uL Baso # (Auto) 0 (0-100) /uL Sodium 141 (137-145) mmol/L Potassium 4.2 (3.4-5.1) mmol/L Chloride 103 (98-107) mmol/L Carbon Dioxide 26 (22-32) mmol/L BUN 8 (7-17) mg/dL Creatinine 0.76 (0.52-1.04) mg/dL Estimated GFR > 60.0 (>60) mL/min BUN/Creatinine Ratio 10.5 (6-22) Glucose 124 H (70-100) mg/dL Calcium 9.8 (8.4-10.2) mg/dL Total Bilirubin 0.7 (0.2-1.3) mg/dL AST 50 H (14-36) IU/L ALT 24 (<35) IU/L Alkaline Phosphatase 54 (38-126) U/L Total Protein 8.5 H (6.3-8.2) g/dL Albumin 4.8 (3.5-5.0) g/dL Globulin 3.7 (1.7-4.1) g/dL Albumin/Globulin Ratio 1.3 (1.0-2.8) Ur Chlamydia DNA (PCR) Not detected N gonorrhoeae DNA (PCR) Not detected Point of care testing: Point of Care Testing Test Results Negative Urine Dip Bedside Urine Glucose Negative Bedside Urine Bilirubin - Negative Bedside Urine Ketone - Negative Urine Specific [place] 1.015 Bedside Urine Occult Blood + Bedside Urine pH 6 Bedside Urine Protein - Negative Bedside Urine Urobilinogen - Negative Bedside Urine Nitrite - Negative Bedside Urine Leukocytes - Negative Esterase <Annamarie Mojica MD - Last Filed: 07/12/20 10:04> Medical Records Attestation: I reviewed the patient's medical records. Lab Data Attestation: I reviewed the patient's lab results. Labs: Lab Results 07/12/20 07/12/20 Range/Units 05:30 06:12 WBC 8.3 (4.5-11.0) X10^3/uL RBC 4.36 (4.0-5.2) X10^6/uL Hgb 12.1 (12.0-16.0) g/dL Hct 35.8 L (36-46) % MCV 82.2 (80-100) fL MCH 27.7 (26-34) PG MCHC 33.7 (30-36) % RDW 18.3 H (11.6-14.8) % Plt Count 306 (150-400) X10^3/uL Neut % (Auto) 77.6 H (50-75) % Lymph % (Auto) 15.7 L (25-40) % [place] % (Auto) 5.3 (3-14) % Eos % (Auto) 0.8 L (2-4) % Baso % (Auto) 0.6 (0-2) % Neut # (Auto) 6400 (1592-4233) /uL Lymph # (Auto) 1300 (9080-5083) /uL [place] # (Auto) 400 (0-900) /uL Eos # (Auto) 100 (0-450) /uL Baso # (Auto) 0 (0-100) /uL Sodium 141 (137-145) mmol/L Potassium 4.2 (3.4-5.1) mmol/L Chloride 103 (98-107) mmol/L Carbon Dioxide 26 (22-32) mmol/L BUN 8 (7-17) mg/dL Creatinine 0.76 (0.52-1.04) mg/dL Estimated GFR > 60.0 (>60) mL/min BUN/Creatinine Ratio 10.5 (6-22) Glucose 124 H (70-100) mg/dL Calcium 9.8 (8.4-10.2) mg/dL Total Bilirubin 0.7 (0.2-1.3) mg/dL AST 50 H (14-36) IU/L ALT 24 (<35) IU/L Alkaline Phosphatase 54 (38-126) U/L Total Protein 8.5 H (6.3-8.2) g/dL Albumin 4.8 (3.5-5.0) g/dL Globulin 3.7 (1.7-4.1) g/dL Albumin/Globulin Ratio 1.3 (1.0-2.8) Ur Chlamydia DNA (PCR) Not detected N gonorrhoeae DNA (PCR) Not detected Point of care testing: Point of Care Testing Test Results Negative Urine Dip Bedside Urine Glucose Negative Bedside Urine Bilirubin - Negative Bedside Urine Ketone - Negative Urine Specific [place] 1.015 Bedside Urine Occult Blood + Bedside Urine pH 6 Bedside Urine Protein - Negative Bedside Urine Urobilinogen - Negative Bedside Urine Nitrite - Negative Bedside Urine Leukocytes - Negative Esterase Imaging Data CT scan - abdomen/pelvis: Radiologist's Impression: FINDINGS: Image quality: Excellent. ABDOMEN: Lung bases: Lung bases are clear. Heart size is normal. Solid organs: Liver is normal in size and enhancement. Gallbladder is within normal limits. Biliary system is non dilated. Pancreas enhances normally. Spleen is normal in size and enhancement. No adrenal nodules. Kidneys demonstrate normal size and enhancement, without hydronephrosis. 2 millimeter nonobstructing stone in the dependent portion of the right renal pelvis is noted. 1 millimeter nonobstructing stone noted in the midpole of the right kidney. No left-sided renal stones identified. Incidental note made of prominent bilateral extrarenal pelvises. Left renal cyst is stable. Peritoneum and bowel: Bowel loops demonstrate normal wall thickness and caliber. No free fluid or air. Nodes and vessels: No retroperitoneal or mesenteric adenopathy by size criteria. Aorta and inferior vena cava are normal in size. Miscellaneous: No ventral hernias. PELVIS: Genitourinary: Bladder wall thickness is normal. Intrauterine device is centrally positioned within the uterus. Miscellaneous: No inguinal hernias or adenopathy. Multiple right lower quadrant surgical clips possibly related to prior appendectomy. Bones: No suspicious bony lesions. No vertebral body compression fractures. IMPRESSION: 1. No acute disease process. 2. No hydronephrosis. 3. Small 1-2 millimeter nonobstructing right renal stones. 4. Probable prior appendectomy 5. No free fluid or free air. 6. No dilated loops of bowel. Dictated by: Kassandra Arteaga MD, PhD on 07/12/2020 at 8:25 MDM Narrative Medical decision making narrative: 34-year-old woman seen for her 2nd ER visit in the same number of days with continued abdominal pain. Was initially diagnosed with a urinary tract infection and is currently on antibiotics continued left-sided abdominal pain. CT scan done today indicates renal kidney stones but no ureteral stones or obstruction. She notes that she did have pain medication 2 days while at with the emergency department. Independent review of CT scan indicates significant stool load without obstruction. She currently will complete her antibiotic dose for presumed UTI 48 hours ago. There is no evidence of acute infection obstruction or stone today. Reassurance is given. Will send her home with a bottle of magnesium citrate to see if her leaving some the stool load will help with the overall pain. Possible that she had a small kidney stone 48 hours ago and then subsequent constipation due to the pain medication which is why her pain is continuing. There does not appear to be any sepsis or other reason for admission today. She is safe for home discharge Discharge Plan Departure Patient Disposition: Home Clinical Impression: Abdominal pain, left lower quadrant Instructions: DI for Abdominal Pain-Adult Activity Restrictions/Additional Instructions: Thank you for coming in today Your workup today does not show urinary tract infection, sexually transmitted infection, diverticulitis, pelvic inflammatory disease, intra-abdominal abscess or appendicitis. You do have some small kidney stones that are not causing any problems at this time. It is possible that 2 days ago when the pain started you passed a small kidney stone. I do not have the records from [facility] but I would recommend you complete the course of antibiotics for the bladder infection that was diagnosed at that time. Your CT scan today shows quite a bit of stool throughout the entire colon. It is entirely possible that the pain medicine the received with your last ER visit has caused that much constipation. I am going to suggest to drink a bottle of magnesium citrate today to completely clean at your colon and see if this helps with her pain overall. Regarding your vaginal spotting and Mirena placement, the Mirena itself appears to be appropriately placed and is not causing the pain in your left lower quadrant. I would encourage you to talk to your primary care physician about the spotting and hormonal changes that you have noticed since having the Mirena placed. I wish you the best Prescriptions: No Action cyclobenzaprine 10 mg tablet 10 mg PO BID PRN (Reason: muscle spasm) Qty: 28 0RF Rx Instructions: may make drowsy, do not drive during therapy phenazopyridine [Pyridium] 200 mg tablet 200 mg PO TID PRN (Reason: pain) Qty: 6 0RF ibuprofen 800 mg tablet 800 mg PO TID PRN (Reason: pain) Qty: 30 0RF ondansetron 4 mg tablet,disintegrating 8 mg PO TID-QID PRN (Reason: nausea and vomiting) clonazepam 1 mg tablet 1 mg PO BID alprazolam 1 mg tablet 1 mg PO BID dextroamphetamine-amphetamine [Adderall] 5 mg tablet 5 mg PO DAILY WesTab Max 2.5-25-2 mg tablet 1 tab PO DAILY sumatriptan succinate 100 mg tablet See Rx Instructions PO .COMPLEX Rx Instructions: take 1 tab at onset of headache; if no relief, may repeat 1 tab after at least 2 hrs; max = 2 tabs/24 hrs PO Referrals: Salbador Ludwig DO [Primary Care Provider, Medical] Stand Alone Forms: Work Release Note
[2020-07-12 05:54] LABS: Add Manual Diff / Slide Review NO; Basophils Absolute Auto 0 /uL (0-100); Basophils Percent Auto 0.6 % (0-2); Eosinophils Absolute Auto 100 /uL (0-450); Eosinophils Percent Auto 0.8 % (2-4); Hematocrit 35.8 % (36-46); Hemoglobin 12.1 g/dL (12.0-16.0); Lymphocytes Absolute Auto 1300 /uL (1100-4500); Lymphocytes Percent Auto 15.7 % (25-40); Mean Corpuscular HGB Conc 33.7 % (30-36); Mean Corpuscular Hemoglobin 27.7 PG (26-34); Mean Corpuscular Volume 82.2 fL (80-100); Monocytes Absolute Auto 400 /uL (0-900); Monocytes Percent Auto 5.3 % (3-14); Neutrophils Absolute Auto 6400 /uL (1500-7000); Neutrophils Percent Auto 77.6 % (50-75); Platelet Count 306 X10^3/uL (150-400); Red Blood Cell Count 4.36 X10^6/uL (4.0-5.2); Red Cell Distribution Width 18.3 % (11.6-14.8); White Blood Cell Count 8.3 X10^3/uL (4.5-11.0)
[2020-07-12] MEDS: ONDANSETRON 4 MG/2 ML INJ IV (05:56)
[2020-07-12] MEDS: SODIUM CHLORIDE 0.9% 1,000 ML 1000 ML IV (05:56)
[2020-07-12 06:02] LABS: Alanine Aminotransferase 24 IU/L (<35); Albumin 4.8 g/dL (3.5-5.0); Albumin Globulin Ratio 1.3 (1.0-2.8); Alkaline Phosphatase 54 U/L (38-126); Aspartate Aminotransferase 50 IU/L (14-36); BUN Creatinine Ratio 10.5 (6-22); Bilirubin Total 0.7 mg/dL (0.2-1.3); Blood Urea Nitrogen 8 mg/dL (7-17); Calcium 9.8 mg/dL (8.4-10.2); Carbon Dioxide 26 mmol/L (22-32); Chloride 103 mmol/L (98-107); Estimated Glomerular Filt Rate > 60.0 mL/min (>60); Globulin 3.7 g/dL (1.7-4.1); Glucose 124 mg/dL (70-100); Potassium 4.2 mmol/L (3.4-5.1); Sodium 141 mmol/L (137-145); Total Protein 8.5 g/dL (6.3-8.2)
[2020-07-12 06:04] LABS: HEMOLYSIS 65 (0-50)
--- NOTE | 2020-07-12 06:08 | DI.CT.S_ITS ---
PROCEDURE: CT ABDOMEN PELVIS W CON INDICATIONS: left-sided pain, flank pain TECHNIQUE: After the administration of intravenous contrast, 5 mm thick sections acquired from the diaphragm to the symphysis. 5 mm coronal and sagittal reformats were acquired. For radiation dose reduction, the following was used: automated exposure control, adjustment of mA and/or kV according to patient size. COMPARISON: [facility], CT, CT KIDNEY URETER BLADDER (KUB), 09/29/2019, 22:04. [facility], CT, IVP (ABD & PEL WWO CONTRAST), 11/19/2017, 16:45. CT, ABD/PELVIS W&WO CON (PNL), 07/27/2012, 8:04. FINDINGS: Image quality: Excellent. ABDOMEN: Lung bases: Lung bases are clear. Heart size is normal. Solid organs: Liver is normal in size and enhancement. Gallbladder is within normal limits. Biliary system is non dilated. Pancreas enhances normally. Spleen is normal in size and enhancement. No adrenal nodules. Kidneys demonstrate normal size and enhancement, without hydronephrosis. 2 millimeter nonobstructing stone in the dependent portion of the right renal pelvis is noted. 1 millimeter nonobstructing stone noted in the midpole of the right kidney. No left-sided renal stones identified. Incidental note made of prominent bilateral extrarenal pelvises. Left renal cyst is stable. Peritoneum and bowel: Bowel loops demonstrate normal wall thickness and caliber. No free fluid or air. Nodes and vessels: No retroperitoneal or mesenteric adenopathy by size criteria. Aorta and inferior vena cava are normal in size. Miscellaneous: No ventral hernias. PELVIS: Genitourinary: Bladder wall thickness is normal. Intrauterine device is centrally positioned within the uterus. Miscellaneous: No inguinal hernias or adenopathy. Multiple right lower quadrant surgical clips possibly related to prior appendectomy. Bones: No suspicious bony lesions. No vertebral body compression fractures. IMPRESSION: 1. No acute disease process. 2. No hydronephrosis. 3. Small 1-2 millimeter nonobstructing right renal stones. 4. Probable prior appendectomy 5. No free fluid or free air. 6. No dilated loops of bowel. Dictated by: Kassandra Arteaga MD, PhD on 07/12/2020 at 8:25 Approved by: Kassandra Arteaga MD, PhD on 07/12/2020 at 8:30
[2020-07-12] MEDS: MORPHINE 4 MG/ML INJ IV ×2 (06:10→07:00)
--- NOTE | 2020-07-12 07:09 | PC.NURSE ---
PT IV infiltrated, IV removed, new IV started. Dr.Laursen biswas.
[2020-07-12] MEDS: methylPREDNISolone 125 MG/2 ML VIAL 60 MG IV (07:43)
[2020-07-12 07:56] LABS: Urine N gonorrhoeae NOT DETECTED
[2020-07-12 08:01] LABS: Urine Chlamydia NOT DETECTED
[2020-07-12] MEDS: MAGNESIUM CITRATE 300 ML SOLUTION PO (09:53)
== END 2020-07-12 09:54 | disposition home or self-care (01) ==
PROVIDERS: Emergency Medicine; Emergency Provider Emergency Medicine; Family Provider Family Medicine; PCP Family Medicine
DX: R10.9 Unspecified abdominal pain (principal); N39.0 Urinary tract infection, site not specified
CPT/HCPCS: 36415; 74177; 80053; 81003; 81025; 85025; 87210; 87491; 87591; 96361; 96374; 96375; 96376; 99284; J2270; J2405; J2930; Q9967

== ENCOUNTER 2020-11-22 15:35 | Emergency (ER) | payer OTHER, SELFPAY ==
[2020-11-22 15:44] VITALS: BP 168/96; PULSE 77; RESP 18; TEMP 36.8; O2SAT 99; BMI 25.7
--- NOTE | 2020-11-22 16:08 | ED.HA ---
HPI - Headache General Chief Complaint: Headache Stated Complaint: migraine Time Seen by Provider: 11/22/20 15:58 Source: patient Mode of arrival: Ambulatory Limitations: no limitations History of Present Illness HPI Narrative: Patient is a 35-year-old female with history of migraine presenting with migraine headache. She has been having increased migraine headaches has over the last 1 month. She has been on Imitrex however she used all her Imitrex already this month is she does not seem like it is helping. This headache started abruptly at 5:00 a.m. she sensitive to light it is mostly on the left side of her face. This is similar to previous headaches although it is quite bad. She has vomiting. No weakness numbness or tingling. She has taken Tylenol ibuprofen already today without any relief. MD Complaint: headache Onset description: sudden Location: left Severity: moderate Relieving factors: nothing Exacerbating factors: none Context: occurred at rest Associated symptoms: none Related Data Home Medications Medication Instructions Recorded Confirmed lamotrigine 25 mg PO QPM 12/06/19 12/06/19 norgestimate-ethinyl estradiol 1 tab PO QPM 12/06/19 12/06/19 [Ortho Tri-Cyclen (28)] trazodone 50 mg PO BEDTIME PRN 12/06/19 12/06/19 Allergies Allergy/AdvReac Type Severity Reaction Status Date / Time No Known Drug Allergies Allergy Verified 09/29/19 21:26 Review of Systems Review of Systems Narrative: GENERAL: Denies chills, fatigue, malaise, fever, sweats, travel HEENT: Denies sinus pain, ear pain, sore throat, difficulty swallowing, neck pain RESPIRATORY: Denies dyspnea, cough, wheezing, hemoptysis, sputum. CARDIOVASCULAR: Denies chest pain, palpitations, orthopnea, edema GASTROINTESTINAL: Denies nausea, vomiting, abdominal pain, diarrhea, constipation, melena. : Denies dysuria, frequency, incontinence, hematuria, urinary retention, flank pain. MUSCULOSKELETAL: Denies weakness, joint pain, or bony pain SKIN: No rash, no erythema, no pruritus NEUROLOGIC: See HPI PSYCHIATRIC: No concerning psychosocial issues. 12 point review of systems is negative except for those stated above and HPI Patient History Medical History Kidney stones Migraine Social History Smoking Status: Current every day smoker Smoking Status: Current every day smoker alcohol intake frequency: holidays/special occasions only Substance Use Type: does not use Exam Initial Vital Signs Initial Vital Signs: Vital Signs Temperature 98.2 F 11/22/20 15:44 Pulse Rate 77 11/22/20 15:44 Respiratory Rate 18 11/22/20 15:44 Blood Pressure 168/96 H 11/22/20 15:44 Pulse Oximetry 99 11/22/20 15:44 GENERAL: Thin young female in dark room appears uncomfortable and in no acute distress. HEENT: Head atraumatic,EOMI, pupils reactive, face symmetric, moist mucous membranes CARDIOVASCULAR: Regular rate and rhythm without murmurs, rubs or gallops. RESPIRATORY: Breath sounds equal bilaterally, no wheezes rales or rhonchi. ABDOMEN: Soft, nontender. Normoactive bowel sounds all 4 quadrants. No guarding or rebound. EXTREMITIES: Normal range of motion, no clubbing or edema. Neurovascularly intact NEUROLOGICAL: Alert and oriented x4.Normal gait and speech. Cranial nerves II through XII grossly intact. Good prisey-yg-ohpa, good [id number], strength equal bilaterally, no dysarthria or aphasia, sensation in tact to soft touch bilaterally, no visual changes, no facial droop SKIN: Warm, dry, no laceration, no petechiae, no rashes or lesions. Scores NIH Stroke Scale Level of Conciousness: Alert, keenly responsive Ask month/age: Answers both questions correctly. Open/close eyes, close hand: Performs both tasks correctly Best gaze horizontal: Normal Visual weeks: No visual loss Facial palsy: Normal symetrical movement Left arm drift: No drift for full 10 sec Right arm drift: No drift for full 10 sec Left leg drift: No drift for full 5 sec Right leg drift: No drift for full 5 sec Limb ataxia: Absent Sensory on face/arms/legs: Normal, no sensory loss Best language: No aphasia, normal Dysarthria: Normal Extinction or inattention: No abnormality Total NIH Stroke scale score: 0 Course Orders Ordered: Discontinued Medications Diphenhydramine HCl (Diphenhydramine 50 Mg/Ml Vial) 25 mg IV NOW ONE Stop: 11/22/20 15:59 Last Admin: 11/22/20 16:11 Dose: 25 mg Documented by: LISA Sodium Chloride (Normal Saline 0.9%) 1,000 mls @ 1,000 mls/hr IV BOLUS ONE Stop: 11/22/20 16:57 Last Infusion: 11/22/20 17:05 Dose: 0 mls/hr Documented by: Admin: 11/22/20 16:12 Dose: 1,000 mls/hr Documented by: LISA Ketorolac Tromethamine (Ketorolac 60 Mg/2 Ml Vial) 15 mg IV NOW ONE Stop: 11/22/20 15:59 Last Admin: 11/22/20 16:11 Dose: 15 mg Documented by: LISA Prochlorperazine (Prochlorperazine 10 Mg/2 Ml Vial) 10 mg IV NOW ONE Stop: 11/22/20 15:59 Last Admin: 11/22/20 16:11 Dose: 10 mg Documented by: LISA Vital Signs Vital signs: Vital Signs - 8 hr 11/22/20 15:44 Temperature 98.2 F Pulse Rate 77 Respiratory Rate 18 Blood Pressure 168/96 H Pulse Oximetry 99 MDM - Headache Lab Data Result diagrams: 11/22/20 15:46 11/22/20 15:46 Labs: Lab Results 11/22/20 11/22/20 Range/Units 15:46 15:46 WBC 7.1 (4.5-11.0) X10^3/uL RBC 4.01 (4.0-5.2) X10^6/uL Hgb 12.0 (12.0-16.0) g/dL Hct 35.4 L (36-46) % MCV 88.3 (80-100) fL MCH 29.9 (26-34) PG MCHC 33.9 (30-36) % RDW 13.6 (11.6-14.8) % Plt Count 298 (150-400) X10^3/uL Neut % (Auto) 70.0 (50-75) % Lymph % (Auto) 23.4 L (25-40) % [place] % (Auto) 5.1 (3-14) % Eos % (Auto) 0.8 L (2-4) % Baso % (Auto) 0.7 (0-2) % Neut # (Auto) 4900 (2497-1204) /uL Lymph # (Auto) 1700 (0696-5377) /uL [place] # (Auto) 400 (0-900) /uL Eos # (Auto) 100 (0-450) /uL Baso # (Auto) 0 (0-100) /uL Sodium 137 (137-145) mmol/L Potassium 4.2 (3.4-5.1) mmol/L Chloride 102 (98-107) mmol/L Carbon Dioxide 28 (22-32) mmol/L BUN 14 (7-17) mg/dL Creatinine 0.88 (0.52-1.04) mg/dL Estimated GFR > 60.0 (>60) mL/min BUN/Creatinine Ratio 15.9 (6-22) Glucose 106 H (70-100) mg/dL Calcium 9.7 (8.4-10.2) mg/dL MDM Narrative Medical decision making narrative: Patient comes with an NEW report multiple narcotics and benzos in September 2020 from [facility] providers. Overall she is feeling better after migraine cocktail. at this time no further intervention. I recommended if her headaches are getting worse and she needs to see a neurologist or headache specialist. She has no focal deficits similar to previous migraine headaches at this time no need for imaging. Discharge Plan Departure Patient Disposition: Home Clinical Impression: Migraine Qualifiers: Migraine type: without aura Status migrainosus presence: without status migrainosus Intractability: not intractable Qualified Code(s): G43.009 - Migraine without aura, not intractable, without status migrainosus Instructions: DI for Migraine Activity Restrictions/Additional Instructions: *You have been diagnosed with migraine headache *What to do: Recommend going home to a dark room sleeping and hopefully feeling better *Continue to take medications as directed *Follow up with your primary care provider in 2-3 days *Return to ER if you should have worsening headache persistent vomiting, weakness numbness tingling or any new, worsening or concerning symptoms Prescriptions: No Action trazodone 50 mg Tablet 50 mg PO BEDTIME PRN (Reason: Sleep) RF: 0 lamotrigine 25 mg Tablet 25 mg PO QPM RF: 0 norgestimate-ethinyl estradiol [Ortho Tri-Cyclen (28)] 0.18/0.215/0.25 mg-35 mcg (28) Tablet 1 tab PO QPM RF: 0 Referrals: Salbador Ludwig DO [Primary Care Provider] -
[2020-11-22 16:11] LABS: Add Manual Diff / Slide Review NO; Basophils Absolute Auto 0 /uL (0-100); Basophils Percent Auto 0.7 % (0-2); Eosinophils Absolute Auto 100 /uL (0-450); Eosinophils Percent Auto 0.8 % (2-4); Hematocrit 35.4 % (36-46); Lymphocytes Absolute Auto 1700 /uL (1100-4500); Lymphocytes Percent Auto 23.4 % (25-40); Mean Corpuscular HGB Conc 33.9 % (30-36); Mean Corpuscular Hemoglobin 29.9 PG (26-34); Mean Corpuscular Volume 88.3 fL (80-100); Monocytes Absolute Auto 400 /uL (0-900); Monocytes Percent Auto 5.1 % (3-14); Neutrophils Absolute Auto 4900 /uL (1500-7000); Platelet Count 298 X10^3/uL (150-400); Red Blood Cell Count 4.01 X10^6/uL (4.0-5.2); Red Cell Distribution Width 13.6 % (11.6-14.8); White Blood Cell Count 7.1 X10^3/uL (4.5-11.0)
[2020-11-22] MEDS: PROCHLORPERAZINE 10 MG/2 ML VIAL IV (16:11)
[2020-11-22] MEDS: KETOROLAC 60 MG/2 ML VIAL 15 MG IV (16:11)
[2020-11-22] MEDS: diphenhydrAMINE 50 MG/ML VIAL 25 MG IV (16:11)
[2020-11-22] MEDS: SODIUM CHLORIDE 0.9% 1,000 ML 1000 ML IV (16:12)
[2020-11-22 16:16] LABS: BUN Creatinine Ratio 15.9 (6-22); Blood Urea Nitrogen 14 mg/dL (7-17); Calcium 9.7 mg/dL (8.4-10.2); Carbon Dioxide 28 mmol/L (22-32); Chloride 102 mmol/L (98-107); Estimated Glomerular Filt Rate > 60.0 mL/min (>60); Glucose 106 mg/dL (70-100); HEMOLYSIS 21 (0-50); Potassium 4.2 mmol/L (3.4-5.1); Sodium 137 mmol/L (137-145)
[2020-11-22 18:41] VITALS: BP 138/78; PULSE 77; RESP 16; O2SAT 97
== END 2020-11-22 18:41 | disposition home or self-care (01) ==
PROVIDERS: Emergency Provider Emergency Medicine; Family Provider Family Medicine; PCP Family Medicine
DX: G43.009 Migraine without aura, not intractable, without status migrainosus (principal)
CPT/HCPCS: 36415; 80048; 85025; 96361; 96374; 96375; 99283; 99284; J0780; J1200; J1885

== ENCOUNTER 2021-03-06 11:41 | Emergency (ER) | payer OTHER, MEDICAID, SELFPAY ==
[2021-03-06 11:49] VITALS: BP 138/100; PULSE 87; RESP 15; O2SAT 98; BMI 26.6
[2021-03-06 11:58] LABS: Appearance Urine UA CLOUDY; Bilirubin Urine UA NEGATIVE (NEGATIVE); Color Urine UA YELLOW; Glucose Urine UA TRACE g/dL (Negative); Ketones Urine UA NEGATIVE (NEGATIVE); Leukocyte Esterase Urine UA 1+ (NEGATIVE); Nitrite Urine UA POSITIVE (Negative); Occult Blood Urine UA 3+ (Negative); Protein Urine UA 2+ (Negative)
[2021-03-06 11:59] LABS: pH Urine UA 7.5 (4.5-8.0)
[2021-03-06 12:22] LABS: RBC Urine 5-10/HPF (0-5/HPF); Squamous Epithelial Cell Urine 1-5 /HPF (0-5/HPF); WBC Urine 10-30/HPF (0-5/HPF)
[2021-03-06 12:23] LABS: Amorphous Sediment Urine 1+; Bacteria Urine Many (>30); Culture Indicated Urine Specimen Cultured
--- NOTE | 2021-03-06 12:38 | ED_ITS ---
HPI - Female Genitourinary General Chief complaint: Urogenital-Female Stated complaint: states UTI and other stuff Time Seen by Provider: 03/06/21 12:35 Source: patient Mode of arrival: Ambulatory Limitations: no limitations History of Present Illness HPI Narrative: This is a 35-year-old female comes in with complaint of UTI type symptoms she has had burning, sense of urgency, incomplete emptying and that she has hesitancy with urination. She has also developed bilateral flank pain but most significantly on the left. She has not had any fevers or chills. She has had nausea developed vomiting today and had 3 episodes of emesis prior to the emergency department but none so far in the emergency department. She has some suprapubic discomfort. She has not appreciated any diarrhea constipation. She has not appreciate any vaginal bleeding or discharge. She has a history significant for kidney stones and had a surgical removal of kidney stones in the past when she was in her teens. She has also had multiple episodes of lithotripsy she does state that feel like she may be having low bit of flank henry n on the left-sided may have developed a kidney stone on that side in the last couple hours on top of her other symptoms. She states she is currently being worked up for autoimmune disease. She is nonspecific and has not had a formal diagnosis. She has been taking gabapentin which was recently prescribed. She states she has not had much issues with kidney stones recently secondary to dietary changes and does not currently have a urologist she is following with. She does also have a history of migraines. She denies any allergies to medications. She states that she has required multiple antibiotics alluding to possible resistance with prior urine infections but she does not know the names of any of the antibiotics. Related Data Home Medications Medication Instructions Recorded Confirmed lamotrigine 25 mg PO QPM 12/06/19 12/06/19 norgestimate-ethinyl estradiol 1 tab PO QPM 12/06/19 12/06/19 [Ortho Tri-Cyclen (28)] trazodone 50 mg PO BEDTIME PRN 12/06/19 12/06/19 Previous Rx's Medication Instructions Recorded ciprofloxacin HCl 500 mg PO BID #28 tab 03/06/21 hydrocodone-acetaminophen 1 tab PO Q6H PRN #10 tab 03/06/21 ondansetron HCl [Zofran] 4 mg PO Q6H PRN #10 tab 03/06/21 Allergies Allergy/AdvReac Type Severity Reaction Status Date / Time No Known Drug Allergies Allergy Verified 03/06/21 11:49 Review of Systems Review of Systems ROS Unobtainable: All systems reviewed & are unremarkable except as noted in HPI and below Patient History Medical History Kidney stones Migraine alcohol intake frequency: holidays/special occasions only Substance Use Type: does not use Exam Narrative Exam Narrative: GENERAL: Alert and oriented x three, well-nourished female in mild distress. HEENT: Head normocephalic, atraumatic, EOMI, pupils reactive, face symmetric, moist mucous membranes NECK: Supple, full range of motion CARDIOVASCULAR: Regular rate and rhythm without murmurs, rubs or gallops. RESPIRATORY: Breath sounds equal bilaterally, no wheezes rales or rhonchi. ABDOMEN: Soft, nontender. Normoactive bowel sounds all 4 quadrants. No guarding or rebound, rigidity, no mass : Positive for left CVA tenderness, no right CVA tenderness. EXTREMITIES: Normal range of motion, no clubbing or edema. Neurovascularly intact NEUROLOGICAL: Cranial nerves II through XII grossly intact. Moving all extremities SKIN: Warm, dry, no petechiae, no rashes or lesions. Initial Vital Signs Initial Vital Signs: Vital Signs Pulse Rate 87 03/06/21 11:49 Respiratory Rate 15 03/06/21 11:49 Blood Pressure 138/100 H 03/06/21 11:49 Pulse Oximetry 98 03/06/21 11:49 Course Orders Ordered: ED Orders 03/06/21 11:52 Test Urine Stat Urinalysis and Microscopic Stat Urine Culture Stat 03/06/21 12:36 Complete Blood Count AUTO DIFF Stat Comprehensive Metabolic Panel Stat Lipase Stat 03/06/21 12:51 US renal complete Stat 03/06/21 15:47 CT kidney ureter bladder (KUB) Stat Discontinued Medications Ciprofloxacin (Ciprofloxacin 250 Mg Tablet) 500 mg PO NOW ONE Stop: 03/06/21 12:54 Last Admin: 03/06/21 13:37 Dose: 500 mg Documented by: CSIEDLE Sodium Chloride (Normal Saline 0.9%) 1,000 mls @ 1,000 mls/hr IV BOLUS ONE Stop: 03/06/21 14:17 Last Infusion: 03/06/21 14:21 Dose: 0 mls/hr Documented by: Admin: 03/06/21 13:19 Dose: 1,000 mls/hr Documented by: LISA Ketorolac Tromethamine (Ketorolac 30 Mg/Ml Vial) 30 mg IM NOW ONE Stop: 03/06/21 12:52 Last Admin: 03/06/21 13:17 Dose: 30 mg Documented by: LISA Morphine Sulfate (Morphine 4 Mg/Ml Inj) 4 mg IM NOW ONE Stop: 03/06/21 15:48 Last Admin: 03/06/21 16:06 Dose: 4 mg Documented by: LISA Ondansetron HCl (Ondansetron 4 Mg Odt) 4 mg SL NOW ONE Stop: 03/06/21 12:52 Last Admin: 03/06/21 13:18 Dose: 4 mg Documented by: LISA Reevaluation(s) Time: 16:21 Consultations Consultation #1: Spoke with Dr. Vinson. He would like CT of the abdomen pelvis if able. We were able to obtain this. Patient has a right kidney stone 5 mm but does not appear to be obstructive. She does appear to have pyelonephritis your teeth hurt pain is on the left. Patient has been afebrile she had nausea and vomiting prior to arrival but has been able to tolerate orals in the department and does not appear septic. Patient does not have urology follow-up currently but has had a history of multiple stones with lithotripsy including a surgical. Vital Signs Vital signs: Vital Signs - 8 hr 03/06/21 11:49 03/06/21 14:57 03/06/21 15:51 Pulse Rate 87 64 70 Respiratory Rate 15 16 Blood Pressure 138/100 H 128/82 134/86 Pulse Oximetry 98 98 97 MDM - Female Genitourinary Lab Data Attestation: I reviewed the patient's lab results. Result diagrams: 03/06/21 12:36 03/06/21 12:36 Labs: Lab Results 03/06/21 03/06/21 03/06/21 Range/Units 11:52 11:52 12:36 WBC 7.7 (4.5-11.0) X10^3/uL RBC 3.93 L (4.0-5.2) X10^6/uL Hgb 11.5 L (12.0-16.0) g/dL Hct 35.1 L (36-46) % MCV 89.1 (80-100) fL MCH 29.2 (26-34) PG MCHC 32.8 (30-36) % RDW 14.4 (11.6-14.8) % Plt Count 233 (150-400) X10^3/uL Neut % (Auto) 82.8 H (50-75) % Lymph % (Auto) 11.8 L (25-40) % [place] % (Auto) 4.4 (3-14) % Eos % (Auto) 0.7 L (2-4) % Baso % (Auto) 0.3 (0-2) % Neut # (Auto) 6400 (9844-3517) /uL Lymph # (Auto) 900 L (0476-5313) /uL [place] # (Auto) 300 (0-900) /uL Eos # (Auto) 100 (0-450) /uL Baso # (Auto) 0 (0-100) /uL Sodium (137-145) mmol/L Potassium (3.4-5.1) mmol/L Chloride (98-107) mmol/L Carbon Dioxide (22-32) mmol/L BUN (7-17) mg/dL Creatinine (0.52-1.04) mg/dL Estimated GFR (>60) mL/min BUN/Creatinine Ratio (6-22) Glucose (70-100) mg/dL Calcium (8.4-10.2) mg/dL Total Bilirubin (0.2-1.3) mg/dL AST (14-36) IU/L ALT (<35) IU/L Alkaline Phosphatase (38-126) U/L Total Protein (6.3-8.2) g/dL Albumin (3.5-5.0) g/dL Globulin (1.7-4.1) g/dL Albumin/Globulin Ratio (1.0-2.8) Lipase (23-300) U/L Urine Color Yellow Urine Appearance Cloudy Urine pH 7.5 (4.5-8.0) Ur Specific [place] 1.020 (1.000-1.035) Urine Protein 2+ H (Negative) Urine Glucose (UA) Trace H (Negative) g/dL Urine Ketones Negative (NEGATIVE) Urine Occult Blood 3+ H (Negative) Urine Nitrate Positive H (Negative) Urine Bilirubin Negative (NEGATIVE) Urine Urobilinogen 1.0 (0.2) E.U./dL Ur Leukocyte Esterase 1+ H (NEGATIVE) Urine RBC 5-10/hpf H (0-5/HPF) Urine WBC 10-30/hpf H (0-5/HPF) Ur Squamous Epith Cells 1-5 /hpf (0-5/HPF) Amorphous Sediment 1+ Urine Bacteria Many (>30) H (None) Ur Culture Indicated? Specimen cultured Urine Test Negative (Negative) 03/06/21 Range/Units 12:36 WBC (4.5-11.0) X10^3/uL RBC (4.0-5.2) X10^6/uL Hgb (12.0-16.0) g/dL Hct (36-46) % MCV (80-100) fL MCH (26-34) PG MCHC (30-36) % RDW (11.6-14.8) % Plt Count (150-400) X10^3/uL Neut % (Auto) (50-75) % Lymph % (Auto) (25-40) % [place] % (Auto) (3-14) % Eos % (Auto) (2-4) % Baso % (Auto) (0-2) % Neut # (Auto) (7223-6369) /uL Lymph # (Auto) (9278-4365) /uL [place] # (Auto) (0-900) /uL Eos # (Auto) (0-450) /uL Baso # (Auto) (0-100) /uL Sodium 138 (137-145) mmol/L Potassium 4.2 (3.4-5.1) mmol/L Chloride 107 (98-107) mmol/L Carbon Dioxide 24 (22-32) mmol/L BUN 11 (7-17) mg/dL Creatinine 0.78 (0.52-1.04) mg/dL Estimated GFR > 60.0 (>60) mL/min BUN/Creatinine Ratio 14.1 (6-22) Glucose 96 (70-100) mg/dL Calcium 9.5 (8.4-10.2) mg/dL Total Bilirubin 0.5 (0.2-1.3) mg/dL AST 42 H (14-36) IU/L ALT 13 (<35) IU/L Alkaline Phosphatase 59 (38-126) U/L Total Protein 7.5 (6.3-8.2) g/dL Albumin 4.3 (3.5-5.0) g/dL Globulin 3.2 (1.7-4.1) g/dL Albumin/Globulin Ratio 1.3 (1.0-2.8) Lipase 51 (23-300) U/L Urine Color Urine Appearance Urine pH (4.5-8.0) Ur Specific [place] (1.000-1.035) Urine Protein (Negative) Urine Glucose (UA) (Negative) g/dL Urine Ketones (NEGATIVE) Urine Occult Blood (Negative) Urine Nitrate (Negative) Urine Bilirubin (NEGATIVE) Urine Urobilinogen (0.2) E.U./dL Ur Leukocyte Esterase (NEGATIVE) Urine RBC (0-5/HPF) Urine WBC (0-5/HPF) Ur Squamous Epith Cells (0-5/HPF) Amorphous Sediment Urine Bacteria (None) Ur Culture Indicated? Urine Test (Negative) Point of Care Testing Test Results Negative Imaging Data Renal ultrasound: Radiologist's Impression: [address] [id number] ReportSigned Patient: Kristine Renteria [facility]#: [id number]: 1985Acct:[id number]/Sex: 35 / FDate of Service: 03/06/21Loc: EDAccession Number: [id number] Procedure: US renal complete Ordering Provider: Kamilla Malcolm D.O. PROCEDURE: US RENAL COMPLETE INDICATIONS: LEFT FLANK PAIN; HISTORY STONES TECHNIQUE: Real-time scanning was performed of the kidneys and bladder, with image docu mentation. COMPARISON: [facility], US, US ABDOMEN COMPLETE, 12/06/2019, 19:06. [facility], CT, CT ABDOMEN PELVIS W CON, 07/12/2020, 6:11. FINDINGS: Kidneys: Kidneys are normal in size. Right kidney measures 11.0 cm long; left kidney measures 12.1 cm long. Right renal cortical thickness is 1.4 cm; left renal cortical thickness is 1.5 cm. Renal cortical echotexture is normal. There is a 5.4 mm stone at the right UPJ. No left renal stone. There is a 2.4 x 2.3 x 2.6 cm simple cortical cyst in the lateral cortex of the mid left kidney. No suspicious solid mass lesions. Bladder: Pre-void bladder volume is near empty, therefore, not well seen. Miscellaneous: No free pelvic fluid. IMPRESSION: 1. A 5.4 mm nonobstructive stone at the right UPJ. No hydronephrosis. 2. A 2.4 x 2.3 x 2.6 cm simple cyst in left kidney. 3. Empty bladder which is not well seen. Dictated by: Nona Oconnor M.D. on 03/06/2021 at 15:13 Approved by: Nona Oconnor M.D. on 03/06/2021 at 15:18 CT scan - abdomen/pelvis: Radiologist's Impression: [address] [id number] Scan ReportSigned Patient: Kristine Renteria CMR#: [id number]: 1985Acct:[id number]/Sex: 35 / FDate of Service: 03/06/21Loc: EDAccession Number: [id number] Procedure: CT kidney ureter bladder (KUB) Ordering Provider: Kamilla Malcolm D.O. PROCEDURE: CT KIDNEY URETER BLADDER (KUB) INDICATIONS: Pyelonephritis and right kidney stone TECHNIQUE: Noncontrast 5 mm thick sections acquired from the diaphragms to the symphysis. 5 mm thick coronal and sagittal reformats were then performed. For radiation dose reduction, the following was used: automated exposure control, adjustment of mA and/or kV according to patient size. COMPARISON: [facility], CT, CT ABDOMEN PELVIS W CON, 07/12/2020, 6:11. [facility], US, US RENAL COMPLETE, 03/06/2021, 13:26. [facility], CT, CT KIDNEY URETER BLADDER (KUB), 09/29/2019, 22:04. FINDINGS: Image quality: Excellent. Lung bases: Lung bases are clear. Heart size is normal. Urinary system: Both kidneys are normal in size. A nonobstructing right-sided kidney stone measuring 2 mm can be seen, as on series 2, image 32. No hydronephrosis or perinephric fat stranding. Within the mid left kidney laterally, there is a water density cyst that measures up to 2.3 cm. A left kidney extrarenal pelvis can be seen, as before. Both ureters appear non-dilated throughout their expected courses. Bladder wall thickness is normal; no calcified bladder stones. Other solid organs: Liver is normal in size. Gallbladder wall is not thickened. Pancreas is normal in contours. Spleen is normal in size. No adrenal nodules. Peritoneum and bowel: Unenhanced bowel loops demonstrate normal wall thickness and caliber. No free fluid or air. Nodes and vessels: No retroperitoneal or mesenteric adenopathy by size criteria. Aorta and inferior vena cava are normal in caliber. Abdominal wall: No ventral hernias. Pelvis: No free pelvic fluid. No inguinal hernias or adenopathy. Bilateral pelvis clips are seen. The uterus appears normal for age. No adnexal masses are seen. Bones: No suspicious bony lesions. No vertebral body compression fractures. IMPRESSION: Nonobstructing 2 mm right-sided kidney stone. No hydronephrosis or ureteral stones can be seen. The obstructing right UPJ stone described on the ultrasound performed earlier in the day is not seen on the current study and is most likely related to artifact. No bladder stones are seen. Bilateral pelvic clips are seen. Prior appendectomy is presumed on the right side. Incidental note is made of: Simple left renal cyst Dictated by: Parish Rosas M.D. on 03/06/2021 at 15:13 Approved by: Parish Rosas M.D. on 03/06/2021 at 15:17 MDM Narrative Medical decision making narrative: 35-year-old female comes with concern for pyelonephritis. Patient has clinical symptoms she is afebrile had vomiting but no active vomiting department. She has a right stone majority pain is on the left. Her urinalysis is consistent with infection. She was able to tolerate orals. Discussed with urology who asked for CT KUB which we obtained. Patient's CT is consistent with no signs of obstructing stone at this time. Patient was discharged home on Cipro, Zofran with prescription for [place]. Strict return precautions were discussed and patient is aware that she can develop septic obstructive uropathy and that she is to return immediately if she is worsening. Discharge Plan Departure Patient Disposition: Home Clinical Impression: Pyelonephritis, Calculus of right kidney, Renal cyst Instructions: DI for Kidney Infection Activity Restrictions/Additional Instructions: Follow up with urology in the next 2-3 days if you are not improving. Call for an appointment. Your imaging today shows a kidney stone on the right but it is not blocking urine drainage. It does appear you have a pyelonephritis or infection into her kidneys. Take antibiotics until completely gone. Take Zofran 1 tablet every 6 hours as needed. Take pain medication as prescribed. This medication can make you sleepy do not drive, perform hazardous activities or make any major decisions while taking it. Prescription to [facility]. Please return for persistent fevers, persistent vomiting inability take your antibiotics, lightheadedness or passing out, new or worsening abdominal, back or flank pain, inability urinate or other new or concerning symptoms. Prescriptions: New ciprofloxacin HCl 500 mg tablet 500 mg PO BID Qty: 28 RF: 0 ondansetron HCl [Zofran] 4 mg tablet 4 mg PO Q6H PRN (Reason: nausea and vomiting) Qty: 10 RF: 0 hydrocodone-acetaminophen 5-325 mg tablet 1 tab PO Q6H PRN (Reason: pain) Qty: 10 RF: 0 No Action trazodone 50 mg Tablet 50 mg PO BEDTIME PRN (Reason: Sleep) RF: 0 lamotrigine 25 mg Tablet 25 mg PO QPM RF: 0 norgestimate-ethinyl estradiol [Ortho Tri-Cyclen (28)] 0.18/0.215/0.25 mg-35 mcg (28) Tablet 1 tab PO QPM RF: 0 Referrals: Nishi Vinson MD [Physician] - Salbador Ludiwg DO [Primary Care Provider] -
--- NOTE | 2021-03-06 12:51 | DI.US.S_ITS ---
PROCEDURE: US RENAL COMPLETE INDICATIONS: LEFT FLANK PAIN; HISTORY STONES TECHNIQUE: Real-time scanning was performed of the kidneys and bladder, with image documentation. COMPARISON: [facility], US, US ABDOMEN COMPLETE, 12/06/2019, 19:06. [facility], CT, CT ABDOMEN PELVIS W CON, 07/12/2020, 6:11. FINDINGS: Kidneys: Kidneys are normal in size. Right kidney measures 11.0 cm long; left kidney measures 12.1 cm long. Right renal cortical thickness is 1.4 cm; left renal cortical thickness is 1.5 cm. Renal cortical echotexture is normal. There is a 5.4 mm stone at the right UPJ. No left renal stone. There is a 2.4 x 2.3 x 2.6 cm simple cortical cyst in the lateral cortex of the mid left kidney. No suspicious solid mass lesions. Bladder: Pre-void bladder volume is near empty, therefore, not well seen. Miscellaneous: No free pelvic fluid. IMPRESSION: 1. A 5.4 mm nonobstructive stone at the right UPJ. No hydronephrosis. 2. A 2.4 x 2.3 x 2.6 cm simple cyst in left kidney. 3. Empty bladder which is not well seen. Dictated by: Nona Oconnor M.D. on 03/06/2021 at 15:13 Approved by: Nona Oconnor M.D. on 03/06/2021 at 15:18
[2021-03-06 13:06] LABS: Add Manual Diff / Slide Review NO; Basophils Absolute Auto 0 /uL (0-100); Basophils Percent Auto 0.3 % (0-2); Eosinophils Absolute Auto 100 /uL (0-450); Eosinophils Percent Auto 0.7 % (2-4); Hematocrit 35.1 % (36-46); Hemoglobin 11.5 g/dL (12.0-16.0); Lymphocytes Absolute Auto 900 /uL (1100-4500); Lymphocytes Percent Auto 11.8 % (25-40); Mean Corpuscular HGB Conc 32.8 % (30-36); Mean Corpuscular Hemoglobin 29.2 PG (26-34); Mean Corpuscular Volume 89.1 fL (80-100); Monocytes Absolute Auto 300 /uL (0-900); Monocytes Percent Auto 4.4 % (3-14); Neutrophils Absolute Auto 6400 /uL (1500-7000); Neutrophils Percent Auto 82.8 % (50-75); Platelet Count 233 X10^3/uL (150-400); Red Blood Cell Count 3.93 X10^6/uL (4.0-5.2); Red Cell Distribution Width 14.4 % (11.6-14.8); White Blood Cell Count 7.7 X10^3/uL (4.5-11.0)
[2021-03-06 13:08] LABS: Pregnancy Test Urine Negative (Negative)
[2021-03-06 13:11] LABS: Alanine Aminotransferase 13 IU/L (<35); Albumin 4.3 g/dL (3.5-5.0); Albumin Globulin Ratio 1.3 (1.0-2.8); Alkaline Phosphatase 59 U/L (38-126); Aspartate Aminotransferase 42 IU/L (14-36); BUN Creatinine Ratio 14.1 (6-22); Bilirubin Total 0.5 mg/dL (0.2-1.3); Blood Urea Nitrogen 11 mg/dL (7-17); Calcium 9.5 mg/dL (8.4-10.2); Carbon Dioxide 24 mmol/L (22-32); Chloride 107 mmol/L (98-107); Estimated Glomerular Filt Rate > 60.0 mL/min (>60); Globulin 3.2 g/dL (1.7-4.1); Glucose 96 mg/dL (70-100); Lipase 51 U/L (23-300); Sodium 138 mmol/L (137-145); Total Protein 7.5 g/dL (6.3-8.2)
[2021-03-06] MEDS: KETOROLAC 30 MG/ML VIAL IM (13:17)
[2021-03-06] MEDS: ONDANSETRON 4 MG ODT SL (13:18)
[2021-03-06] MEDS: SODIUM CHLORIDE 0.9% 1,000 ML 1000 ML IV (13:19)
[2021-03-06 13:25] LABS: HEMOLYSIS 52 (0-50)
[2021-03-06 13:26] LABS: Potassium 4.2 mmol/L (3.4-5.1)
[2021-03-06] MEDS: CIPROFLOXACIN 250 MG TABLET 500 MG PO (13:37)
[2021-03-06 14:57] VITALS: BP 128/82; PULSE 64; O2SAT 98
--- NOTE | 2021-03-06 15:47 | DI.CT.S_ITS ---
PROCEDURE: CT KIDNEY URETER BLADDER (KUB) INDICATIONS: Pyelonephritis and right kidney stone TECHNIQUE: Noncontrast 5 mm thick sections acquired from the diaphragms to the symphysis. 5 mm thick coronal and sagittal reformats were then performed. For radiation dose reduction, the following was used: automated exposure control, adjustment of mA and/or kV according to patient size. COMPARISON: [facility], CT, CT ABDOMEN PELVIS W CON, 07/12/2020, 6:11. [facility], US, US RENAL COMPLETE, 03/06/2021, 13:26. [facility], CT, CT KIDNEY URETER BLADDER (KUB), 09/29/2019, 22:04. FINDINGS: Image quality: Excellent. Lung bases: Lung bases are clear. Heart size is normal. Urinary system: Both kidneys are normal in size. A nonobstructing right-sided kidney stone measuring 2 mm can be seen, as on series 2, image 32. No hydronephrosis or perinephric fat stranding. Within the mid left kidney laterally, there is a water density cyst that measures up to 2.3 cm. A left kidney extrarenal pelvis can be seen, as before. Both ureters appear non-dilated throughout their expected courses. Bladder wall thickness is normal; no calcified bladder stones. Other solid organs: Liver is normal in size. Gallbladder wall is not thickened. Pancreas is normal in contours. Spleen is normal in size. No adrenal nodules. Peritoneum and bowel: Unenhanced bowel loops demonstrate normal wall thickness and caliber. No free fluid or air. Nodes and vessels: No retroperitoneal or mesenteric adenopathy by size criteria. Aorta and inferior vena cava are normal in caliber. Abdominal wall: No ventral hernias. Pelvis: No free pelvic fluid. No inguinal hernias or adenopathy. Bilateral pelvis clips are seen. The uterus appears normal for age. No adnexal masses are seen. Bones: No suspicious bony lesions. No vertebral body compression fractures. IMPRESSION: Nonobstructing 2 mm right-sided kidney stone. No hydronephrosis or ureteral stones can be seen. The obstructing right UPJ stone described on the ultrasound performed earlier in the day is not seen on the current study and is most likely related to artifact. No bladder stones are seen. Bilateral pelvic clips are seen. Prior appendectomy is presumed on the right side. Incidental note is made of: Simple left renal cyst Dictated by: Parish Rosas M.D. on 03/06/2021 at 15:13 Approved by: Parish Rosas M.D. on 03/06/2021 at 15:17
[2021-03-06 15:51] VITALS: BP 134/86; PULSE 70; RESP 16; O2SAT 97
--- NOTE | 2021-03-06 15:53 | PC.NURSE ---
Pt drove herself here. asking for pain meds. Pt advised she needs to find a ride in order to receive narcotic pain meds. pt agreeable.
[2021-03-06] MEDS: MORPHINE 4 MG/ML INJ IM (16:06)
== END 2021-03-06 16:48 | disposition home or self-care (01) ==
PROVIDERS: Emergency Provider Emergency Medicine; Family Provider Family Medicine; PCP Family Medicine
DX: N20.0 Calculus of kidney (principal); N28.1 Cyst of kidney, acquired; Z87.442 Personal history of urinary calculi; R10.9 Unspecified abdominal pain; R11.2 Nausea with vomiting, unspecified
CPT/HCPCS: 74176; 76770; 80053; 81001; 81025; 83690; 85025; 87077; 87086; 87186; 96360; 96372; 99284; J1885; J2270

== ENCOUNTER 2021-03-09 18:59 | Emergency (ER) | payer BC, OTHER, MEDICAID, SELFPAY ==
--- NOTE | 2021-03-09 19:06 | ED.FEMALEGU ---
HPI - Female Genitourinary General Chief complaint: Urogenital-Female Stated complaint: flank pain, nausea, burning urination Time Seen by Provider: 03/09/21 19:04 Source: patient Mode of arrival: Ambulatory Limitations: no limitations History of Present Illness HPI Narrative: 35-year-old female with history of recent urinary tract infection and kidney stones presents with a chief complaint of ongoing right flank pain and nausea. She states that her pain seems to be a bit worse than when she was seen and evaluated few days ago. At that time she had been having urinary frequency, burning and urgency and was found to have a urine infection, possibly pyelonephritis in the setting of kidney stones. Her stone was rather small and absence of any signs of sepsis. She had a very thorough examination and return precautions were given. She is taking her medications as prescribed it still feels unwell. She denies headache or blurred vision. She denies any sore throat, cough or chest pain. She has had no diarrhea or constipation. She denies any vaginal bleeding or discharge MD Complaint: dysuria and UTI Onset (ago): day(s) Female Urogenital Radiation: R Flank Severity: moderate Quality: Aching Duration: constant Urinary symptoms: Dysuria and Flank Pain Patient : No Associated symptoms: nausea/vomiting Related Data Home Medications Medication Instructions Recorded Confirmed lamotrigine 25 mg PO QPM 12/06/19 12/06/19 norgestimate-ethinyl estradiol 1 tab PO QPM 12/06/19 12/06/19 [Ortho Tri-Cyclen (28)] trazodone 50 mg PO BEDTIME PRN 12/06/19 12/06/19 Previous Rx's Medication Instructions Recorded ciprofloxacin HCl 500 mg PO BID #28 tab 03/06/21 hydrocodone-acetaminophen 1 tab PO Q6H PRN #10 tab 03/06/21 ondansetron HCl [Zofran] 4 mg PO Q6H PRN #10 tab 03/06/21 hydrocodone-acetaminophen 1 tab PO Q4-6H PRN #10 tab 03/09/21 ondansetron 4 mg PO TID-QID PRN #10 tab 03/09/21 Allergies Allergy/AdvReac Type Severity Reaction Status Date / Time No Known Drug Allergies Allergy Verified 03/06/21 11:49 Review of Systems Constitutional Constitutional: Denies chills, Denies fatigue, Denies fever(s), Denies frequent falls, Denies lethargy and Denies weakness Eyes Eyes: Denies change in vision, Denies eye discharge, Denies irritation and Denies loss of vision ENT Ears, Nose, Mouth, and Throat: Denies change in voice, Denies dizziness, Denies neck pain, Denies sore throat and Denies throat swelling Cardiovascular Cardiovascular: Denies chest pain, Denies irregular heart rhythm, Denies lightheadedness, Denies palpitations, Denies dyspnea, Denies dyspnea on exertion and Denies orthopnea Respiratory Respiratory: Denies cough, Denies dyspnea, Denies dyspnea on exertion and Denies wheezing Gastrointestinal Gastrointestinal: Denies abdominal pain, Denies change in bowel habits, Denies diarrhea, Denies nausea and Denies vomiting Genitourinary Genitourinary: Reports dysuria, Reports flank pain and Reports urinary urgency Genitourinary: Reports dysuria, Reports flank pain and Reports urinary urgency Musculoskeletal Musculoskeletal: Denies neck pain and Denies numbness Integumentary/Breasts Skin/Breast: Denies pruritus, Denies erythema, Denies rash and Denies wounds Neurologic Neurologic: Denies behavioral changes, Denies confusion, Denies dizziness, Denies frequent falls, Denies loss of vision, Denies numbness and Denies weakness Psychiatric Psychiatric: Denies anxiety, Denies behavioral changes, Denies confusion, Denies depression, Denies homicidal ideation and Denies suicidal ideation Endocrine Endocrine: Denies fatigue, Denies flushing and Denies palpitations Hematologic/Lymphatic Hematologic/Lymphatic: Denies easy bruising Allergic/Immunologic Allergic/Immunologic: Denies urticaria, Denies throat swelling and Denies wheezing Patient History Medical History Kidney stones Migraine alcohol intake frequency: holidays/special occasions only Substance Use Type: does not use Exam Narrative Exam Narrative: GENERAL: [35] year old patient appears stated age. Well-nourished, well-developed patient, in mild distress. Appears uncomfortable HEAD: Atraumatic. Normocephalic. EYES: Pupils equal round and reactive. Extraocular motions intact. No scleral icterus. No injection or drainage. ENT: Nose without bleeding, purulent drainage. Throat without erythema, tonsillar hypertrophy or exudate. Airway patent. NECK: Trachea midline. Non tender CARDIOVASCULAR: Regular rate and rhythm without murmurs, gallops, or rubs. RESPIRATORY: Clear to auscultation. Breath sounds equal bilaterally. No wheezes, rales, or rhonchi. GASTROINTESTINAL: Abdomen soft, non-tender, nondistended. EXTREMITIES: No edema or joint tenderness. BACK: Nontender without deformity or crepitance. Right flank tenderness to palpation NEURO: AOx3. SKIN: No rash or erythema of visible areas Initial Vital Signs Initial Vital Signs: Vital Signs Temperature 98.4 F 03/09/21 19:10 Pulse Rate 76 03/09/21 19:10 Respiratory Rate 16 03/09/21 19:10 Blood Pressure 154/90 H 03/09/21 19:10 Pulse Oximetry 99 03/09/21 19:10 Course Orders Ordered: ED Orders 03/09/21 19:22 US renal complete Stat 03/09/21 19:33 Complete Blood Count AUTO DIFF Stat Comprehensive Metabolic Panel Stat Lactate (Lactic Acid) Stat 03/09/21 19:55 Blood Culture Stat 03/09/21 19:59 UA Complete [Urinalysis and Microscopic] Stat Discontinued Medications Hydrocodone Bitart/Acetaminophen (Hydrocodone/Acet 5/325 Prepack) 1 bottle MISC SEEINSTR ONE Stop: 03/09/21 21:56 Last Admin: 03/09/21 22:02 Dose: 1 bottle Documented by: LJ Hydromorphone HCl (Hydromorphone 0.5 Mg Inj) 0.5 mg IV NOW ONE Stop: 03/09/21 20:01 Last Admin: 03/09/21 20:09 Dose: 0.5 mg Documented by: LJ Hydromorphone HCl (Hydromorphone 0.5 Mg Inj) 0.5 mg IV NOW ONE Stop: 03/09/21 21:36 Last Admin: 03/09/21 22:03 Dose: 0.5 mg Documented by: LJ Sodium Chloride (Normal Saline 0.9%) 1,000 mls @ 125 mls/hr IV CONT CANDELARIO Last Infusion: 03/09/21 22:04 Dose: 125 mls/hr Documented by: Admin: 03/09/21 19:40 Dose: 125 mls/hr Documented by: LJ Ketorolac Tromethamine (Ketorolac 30 Mg/Ml Vial) 15 mg IV NOW ONE Stop: 03/09/21 19:07 Last Admin: 03/09/21 19:39 Dose: 15 mg Documented by: LJ Ondansetron HCl (Ondansetron 4 Mg/2 Ml Inj) 4 mg IV NOW ONE Stop: 03/09/21 20:01 Last Admin: 03/09/21 20:09 Dose: 4 mg Documented by: LJ Ondansetron HCl (Ondansetron 4 Mg Odt Prepack) 1 bottle MISC SEEINSTR ONE Stop: 03/09/21 21:56 Last Admin: 03/09/21 22:03 Dose: 1 bottle Documented by: LJ Vital Signs Vital signs: Vital Signs - 8 hr 03/09/21 19:10 03/09/21 20:15 03/09/21 22:19 Temperature 98.4 F Pulse Rate 76 73 83 Respiratory Rate 16 19 14 Blood Pressure 154/90 H 156/99 H 160/100 H Pulse Oximetry 99 98 MDM - Female Genitourinary Lab Data Result diagrams: 03/09/21 19:33 03/09/21 19:33 Labs: Lab Results 03/09/21 03/09/21 03/09/21 Range/Units 19:33 19:33 19:33 WBC 5.3 (4.5-11.0) X10^3/uL RBC 4.09 (4.0-5.2) X10^6/uL Hgb 11.8 L (12.0-16.0) g/dL Hct 35.9 L (36-46) % MCV 87.9 (80-100) fL MCH 28.9 (26-34) PG MCHC 32.9 (30-36) % RDW 14.2 (11.6-14.8) % Plt Count 285 (150-400) X10^3/uL Neut % (Auto) 67.7 (50-75) % Lymph % (Auto) 25.8 (25-40) % [place] % (Auto) 5.4 (3-14) % Eos % (Auto) 0.3 L (2-4) % Baso % (Auto) 0.8 (0-2) % Neut # (Auto) 3600 (9143-4855) /uL Lymph # (Auto) 1400 (0080-1752) /uL [place] # (Auto) 300 (0-900) /uL Eos # (Auto) 0 (0-450) /uL Baso # (Auto) 0 (0-100) /uL Sodium 139 (137-145) mmol/L Potassium 3.6 (3.4-5.1) mmol/L Chloride 100 (98-107) mmol/L Carbon Dioxide 28 (22-32) mmol/L BUN 11 (7-17) mg/dL Creatinine 0.95 (0.52-1.04) mg/dL Estimated GFR > 60.0 (>60) mL/min BUN/Creatinine Ratio 11.6 (6-22) Glucose 105 H (70-100) mg/dL Lactate 1.0 (0.7-2.1) mmol/L Calcium 10.3 H (8.4-10.2) mg/dL Total Bilirubin 0.4 (0.2-1.3) mg/dL AST 33 (14-36) IU/L ALT 16 (<35) IU/L Alkaline Phosphatase 72 (38-126) U/L Total Protein 8.6 H (6.3-8.2) g/dL Albumin 4.9 (3.5-5.0) g/dL Globulin 3.7 (1.7-4.1) g/dL Albumin/Globulin Ratio 1.3 (1.0-2.8) Urine Color Urine Appearance Urine pH (4.5-8.0) Ur Specific [place] (1.000-1.035) Urine Protein (Negative) Urine Glucose (UA) (Negative) g/dL Urine Ketones (NEGATIVE) Urine Occult Blood (Negative) Urine Nitrate (Negative) Urine Bilirubin (NEGATIVE) Urine Urobilinogen (0.2) E.U./dL Ur Leukocyte Esterase (NEGATIVE) Urine RBC (0-5/HPF) Urine WBC (0-5/HPF) Ur Squamous Epith Cells (0-5/HPF) Urine Bacteria (None) Ur Culture Indicated? 03/09/21 Range/Units 19:59 WBC (4.5-11.0) X10^3/uL RBC (4.0-5.2) X10^6/uL Hgb (12.0-16.0) g/dL Hct (36-46) % MCV (80-100) fL MCH (26-34) PG MCHC (30-36) % RDW (11.6-14.8) % Plt Count (150-400) X10^3/uL Neut % (Auto) (50-75) % Lymph % (Auto) (25-40) % [place] % (Auto) (3-14) % Eos % (Auto) (2-4) % Baso % (Auto) (0-2) % Neut # (Auto) (2134-4105) /uL Lymph # (Auto) (1070-5515) /uL [place] # (Auto) (0-900) /uL Eos # (Auto) (0-450) /uL Baso # (Auto) (0-100) /uL Sodium (137-145) mmol/L Potassium (3.4-5.1) mmol/L Chloride (98-107) mmol/L Carbon Dioxide (22-32) mmol/L BUN (7-17) mg/dL Creatinine (0.52-1.04) mg/dL Estimated GFR (>60) mL/min BUN/Creatinine Ratio (6-22) Glucose (70-100) mg/dL Lactate (0.7-2.1) mmol/L Calcium (8.4-10.2) mg/dL Total Bilirubin (0.2-1.3) mg/dL AST (14-36) IU/L ALT (<35) IU/L Alkaline Phosphatase (38-126) U/L Total Protein (6.3-8.2) g/dL Albumin (3.5-5.0) g/dL Globulin (1.7-4.1) g/dL Albumin/Globulin Ratio (1.0-2.8) Urine Color Yellow Urine Appearance Clear Urine pH 7.0 (4.5-8.0) Ur Specific [place] 1.010 (1.000-1.035) Urine Protein Negative (Negative) Urine Glucose (UA) Negative (Negative) g/dL Urine Ketones Negative (NEGATIVE) Urine Occult Blood 3+ H (Negative) Urine Nitrate Negative (Negative) Urine Bilirubin Negative (NEGATIVE) Urine Urobilinogen 0.2 (0.2) E.U./dL Ur Leukocyte Esterase Negative (NEGATIVE) Urine RBC 5-10/hpf H (0-5/HPF) Urine WBC 0-1/hpf (0-5/HPF) Ur Squamous Epith Cells 10-30 /hpf H D (0-5/HPF) Urine Bacteria None seen (None) Ur Culture Indicated? Cult not indicated Point of Care Testing Test Results Negative Urine Dip Bedside Urine Glucose Negative Bedside Urine Bilirubin - Negative Bedside Urine Ketone - Negative Urine Specific [place] 1.015 Bedside Urine Occult Blood +++ Bedside Urine pH 6 Bedside Urine Protein - Negative Bedside Urine Urobilinogen - Negative Bedside Urine Nitrite - Negative Bedside Urine Leukocytes - Negative Esterase Imaging Data US - Renal: Radiologist's Impression: [address] [id number] ReportSigned Patient: Kristine Renteria CMR#: [id number]: [id number]:[id number]/Sex: 35 / FDate of Service: 03/09/21Loc: EDAccession Number: [id number] Procedure: US renal complete Ordering Provider: Florencio Kumar D.O. PROCEDURE: US RENAL COMPLETE INDICATIONS: worsening pain, stones and pyelonephritis TECHNIQUE: Real-time scanning was performed of the kidneys and bladder, with image documentation. COMPARISON: [facility], CT, CT KIDNEY URETER BLADDER (KUB), 03/06/2021, 15:52. [facility], US, US RENAL COMPLETE, 03/06/2021, 13:26. FINDINGS: Kidneys: Right kidney measures 10.7 cm long; left kidney measures 11.8 cm long. Right renal cortical thickness is 1.4 cm; left renal cortical thickness is 1.4 cm. Renal cortical echotexture is normal. Previously seen 2 mm right renal stone on comparison CT is not visualized sonographically. Proximal right ureteropelvic junction stone is also not visualized. No right-sided hydronephrosis. Redemonstration of mid left renal cyst measuring 2.5 cm maximum dimension. Trace left pelviectasis. No val hydronephrosis. No hydronephrosis or nephrolithiasis. No suspicious solid mass lesions. Bladder: Pre-void bladder volume is 414 mL. Post-void residual is 65 mL. Pre-void images demonstrate no intraluminal masses or stones. On pre-void images, right ureteral jet is noted with color Doppler interrogation. Left ureteral jet not seen. (Of note, ureteral jets may not be detectable in up to 25% of cases due to insufficient differences in specific gravity between ureteral and bladder urine). Miscellaneous: No free pelvic fluid. Incidental note of known left posterior intramural uterine body fibroid measuring approximately 2.1 cm in maximum dimension, previously up to 2.3 cm. IMPRESSION: 1. Known 2 mm right renal stone and right ureteropelvic junction stone from prior examinations are not visualized on today's evaluation. No right-sided hydronephrosis. 2. Trace left renal pelviectasis without val hydronephrosis. 3. Redemonstration of known 2.5 cm left mid cyst. 4. Stable to slightly decreased size of left posterior intramural uterine fibroid. Dictated by: Lobo Riggs M.D. on 03/09/2021 at 21:30 Approved by: Lobo Riggs M.D. on 03/09/2021 at 21:39 [facility] Narrative Medical decision making narrative: Patient returns with ongoing, if not slightly worse symptoms including some right flank pain and nausea. She admits that her urinary symptoms are still slightly present but have improved. She generally does not feel well but does not have a measurable fever. She was seen a few days ago and had demonstration of a small kidney stone, appropriate renal function and pain was well controlled. She had extensive bedside discussion about close follow-up with Urology and return precautions which she clearly understood well as she has returned tonight. After our evaluation tonight her pain is now under control, she is tolerating oral hydration, she shows no sign of sepsis and actually diagnostics are improved, urine no longer show sign of infection, lab work shows shift, electrolyte abnormality or altered renal function. Renal ultrasound shows no significant findings. We discussed at length at the bedside regarding how to proceed including a repeat CT scan but sure the opinion that is not the best course of action at this point in time. I will write another course of pain meds and nausea meds she has assured me she will follow-up closely with her providers and will return for worsening symptoms. Discharge Plan Departure Patient Disposition: Home Clinical Impression: Acute flank pain Instructions: DI for Flank Pain Activity Restrictions/Additional Instructions: *You have been diagnosed with [flank pain. As we discussed, your urine, blood work, ultrasound are all very reassuring.] *What to do: *Please continue to take your regular medications as directed. [ ] New medication prescriptions sent to your pharmacy: [ ] [x ] New medication written as a paper prescription [ ] No new medications given *Please follow up with your primary care provider in 2-3 days, call for an appointment. Let them know you were seen in the Emergency Department and that we ask that you be seen in follow up. We will electronically transmit a record of today's note if your PCP is in our system *If you do not have a primary care provider please contact the [facility] Resource line at [phone]. They will ask some questions about your medical history and help get you set up with a doctor in the community. *Return to Emergency Department if you should have any new, worsening or concerning symptoms, such as [fever greater than 101 F, shaking chills, worsening pain, persistent vomiting or other bothersome symptoms] Prescriptions: New hydrocodone-acetaminophen 5-325 mg tablet 1 tab PO Q4-6H PRN (Reason: pain) Qty: 10 RF: 0 ondansetron 4 mg tablet,disintegrating 4 mg PO TID-QID PRN (Reason: nausea and vomiting) Qty: 10 RF: 0 No Action trazodone 50 mg Tablet 50 mg PO BEDTIME PRN (Reason: Sleep) RF: 0 lamotrigine 25 mg Tablet 25 mg PO QPM RF: 0 norgestimate-ethinyl estradiol [Ortho Tri-Cyclen (28)] 0.18/0.215/0.25 mg-35 mcg (28) Tablet 1 tab PO QPM RF: 0 ciprofloxacin HCl 500 mg tablet 500 mg PO BID Qty: 28 RF: 0 ondansetron HCl [Zofran] 4 mg tablet 4 mg PO Q6H PRN (Reason: nausea and vomiting) Qty: 10 RF: 0 hydrocodone-acetaminophen 5-325 mg tablet 1 tab PO Q6H PRN (Reason: pain) Qty: 10 RF: 0 Referrals: Nishi Vinson MD [Physician] - Salbador Ludwig DO [Primary Care Provider] -
[2021-03-09 19:10] VITALS: BP 154/90; PULSE 76; RESP 16; TEMP 36.9; O2SAT 99; BMI 25.7
--- NOTE | 2021-03-09 19:22 | DI.US.S_ITS ---
PROCEDURE: US RENAL COMPLETE INDICATIONS: worsening pain, stones and pyelonephritis TECHNIQUE: Real-time scanning was performed of the kidneys and bladder, with image documentation. COMPARISON: [facility], CT, CT KIDNEY URETER BLADDER (KUB), 03/06/2021, 15:52. [facility], US, US RENAL COMPLETE, 03/06/2021, 13:26. FINDINGS: Kidneys: Right kidney measures 10.7 cm long; left kidney measures 11.8 cm long. Right renal cortical thickness is 1.4 cm; left renal cortical thickness is 1.4 cm. Renal cortical echotexture is normal. Previously seen 2 mm right renal stone on comparison CT is not visualized sonographically. Proximal right ureteropelvic junction stone is also not visualized. No right-sided hydronephrosis. Redemonstration of mid left renal cyst measuring 2.5 cm maximum dimension. Trace left pelviectasis. No val hydronephrosis. No hydronephrosis or nephrolithiasis. No suspicious solid mass lesions. Bladder: Pre-void bladder volume is 414 mL. Post-void residual is 65 mL. Pre-void images demonstrate no intraluminal masses or stones. On pre-void images, right ureteral jet is noted with color Doppler interrogation. Left ureteral jet not seen. (Of note, ureteral jets may not be detectable in up to 25% of cases due to insufficient differences in specific gravity between ureteral and bladder urine). Miscellaneous: No free pelvic fluid. Incidental note of known left posterior intramural uterine body fibroid measuring approximately 2.1 cm in maximum dimension, previously up to 2.3 cm. IMPRESSION: 1. Known 2 mm right renal stone and right ureteropelvic junction stone from prior examinations are not visualized on today's evaluation. No right-sided hydronephrosis. 2. Trace left renal pelviectasis without val hydronephrosis. 3. Redemonstration of known 2.5 cm left mid cyst. 4. Stable to slightly decreased size of left posterior intramural uterine fibroid. Dictated by: Lobo Riggs M.D. on 03/09/2021 at 21:30 Approved by: Lobo Riggs M.D. on 03/09/2021 at 21:39
[2021-03-09] MEDS: KETOROLAC 30 MG/ML VIAL 15 MG IV (19:39)
[2021-03-09] MEDS: SODIUM CHLORIDE 0.9% 1,000 ML 125 ML IV (19:40)
[2021-03-09 19:43] LABS: Add Manual Diff / Slide Review NO; Basophils Absolute Auto 0 /uL (0-100); Basophils Percent Auto 0.8 % (0-2); Eosinophils Absolute Auto 0 /uL (0-450); Eosinophils Percent Auto 0.3 % (2-4); Hematocrit 35.9 % (36-46); Hemoglobin 11.8 g/dL (12.0-16.0); Lymphocytes Absolute Auto 1400 /uL (1100-4500); Lymphocytes Percent Auto 25.8 % (25-40); Mean Corpuscular HGB Conc 32.9 % (30-36); Mean Corpuscular Hemoglobin 28.9 PG (26-34); Mean Corpuscular Volume 87.9 fL (80-100); Monocytes Absolute Auto 300 /uL (0-900); Monocytes Percent Auto 5.4 % (3-14); Neutrophils Absolute Auto 3600 /uL (1500-7000); Neutrophils Percent Auto 67.7 % (50-75); Platelet Count 285 X10^3/uL (150-400); Red Blood Cell Count 4.09 X10^6/uL (4.0-5.2); Red Cell Distribution Width 14.2 % (11.6-14.8); White Blood Cell Count 5.3 X10^3/uL (4.5-11.0)
[2021-03-09 19:59] LABS: Alanine Aminotransferase 16 IU/L (<35); Albumin 4.9 g/dL (3.5-5.0); Albumin Globulin Ratio 1.3 (1.0-2.8); Alkaline Phosphatase 72 U/L (38-126); Aspartate Aminotransferase 33 IU/L (14-36); BUN Creatinine Ratio 11.6 (6-22); Bilirubin Total 0.4 mg/dL (0.2-1.3); Blood Urea Nitrogen 11 mg/dL (7-17); Calcium 10.3 mg/dL (8.4-10.2); Carbon Dioxide 28 mmol/L (22-32); Chloride 100 mmol/L (98-107); Estimated Glomerular Filt Rate > 60.0 mL/min (>60); Globulin 3.7 g/dL (1.7-4.1); Glucose 105 mg/dL (70-100); HEMOLYSIS < 15 (0-50); Potassium 3.6 mmol/L (3.4-5.1); Sodium 139 mmol/L (137-145); Total Protein 8.6 g/dL (6.3-8.2)
[2021-03-09 20:00] LABS: Bacteria Urine None Seen
[2021-03-09 20:02] LABS: Appearance Urine UA CLEAR; Bilirubin Urine UA NEGATIVE (NEGATIVE); Color Urine UA YELLOW; Glucose Urine UA NEGATIVE (Negative); Ketones Urine UA NEGATIVE (NEGATIVE); Leukocyte Esterase Urine UA NEGATIVE (NEGATIVE); Nitrite Urine UA NEGATIVE (Negative); Occult Blood Urine UA 3+ (Negative); Protein Urine UA NEGATIVE (Negative); Urobilinogen Urine UA 0.2 E.U./dL (0.2)
[2021-03-09] MEDS: HYDROMORPHONE 0.5 MG INJ IV ×2 (20:09→22:03)
[2021-03-09] MEDS: ONDANSETRON 4 MG/2 ML INJ IV (20:09)
[2021-03-09 20:14] LABS: Culture Indicated Urine Cult Not Indicated; Squamous Epithelial Cell Urine 10-30 /HPF (0-5/HPF); WBC Urine 0-1/HPF (0-5/HPF)
[2021-03-09 20:15] VITALS: BP 156/99; PULSE 73; RESP 19; O2SAT 98
[2021-03-09 20:16] LABS: RBC Urine 5-10/HPF (0-5/HPF)
[2021-03-09] MEDS: HYDROCODONE/ACET 5/325 PREPACK 1 BOTTLE MISC (22:02)
[2021-03-09] MEDS: ONDANSETRON 4 MG ODT PREPACK 1 BOTTLE MISC (22:03)
[2021-03-09 22:19] VITALS: BP 160/100; PULSE 83; RESP 14
== END 2021-03-09 22:20 | disposition home or self-care (01) ==
PROVIDERS: Emergency Provider Emergency Medicine; Family Provider Family Medicine; PCP Family Medicine
DX: R10.9 Unspecified abdominal pain (principal); R11.0 Nausea; R30.0 Dysuria
CPT/HCPCS: 36415; 76770; 80053; 81001; 81003; 81025; 83605; 85025; 87040; 96361; 96374; 96375; 96376; 99284; J1170; J1885; J2405

== ENCOUNTER 2021-07-31 19:19 | Emergency (ER) | payer BC, OTHER, MEDICAID, SELFPAY ==
[2021-07-31 19:23] VITALS: BP 146/76; PULSE 82; RESP 22; TEMP 36.7; O2SAT 100
--- NOTE | 2021-07-31 20:16 | CM.SWNOTE ---
PROPERTY ACCOUNTANT Assessment PROPERTY ACCOUNTANT/Flight Nurse Assessment Time Spent with Patient Start date 07/31/21 Visit Start Time 19:35 End date 07/31/21 Visit End Time 19:50 Total time Care Management spent on 20 patient visit-in minutes Mental Health Screening Include Onset, Duration, Intensity Presenting Problem Patient presents to the ED with concern for anxiety, life stresses and changes in her MH medication Precipitating Event(s) Patient endorses that she started staying at the [facility] penitentiary a few days ago leaving a bad situation and was just informed that her dad is sick. Patient Strengths Patient is seeking help, connected with PCP. Current Behavioral Health Provider(s) Patient is seeking MH provider Include Facility, Provider, Ph. # and/or Psychiatrist Psych. Hx Mental Health and Chemical Patient endorses hx of Bipolar Dependency and Anxiety disorder Patient endorses that she is 3 years clean from pain medication, patient denies substance use. Family Hx of Behavioral Abuse Patient does not provide details of her previous family /relationship and living situation Psychiatric Hospitalizations (date(s)/ None reported location) Psychosocial information & Support Patient is 35 y/o female who Systems is residing at [facility] in [place]. Patient endorses supports from family, 12 step program and [facility] corrections caseworker. School/Work None reported Legal Concerns Legal Matters - Outstanding Issues None reported Mental Status Orientation (Person/Place/Time) A/Ox4 Stated Mood anxious Affect (Congruent with Mood?) Anxious, full range, congruent with mood Thought Content - Specify/Describe none reported Obsessions, Delusions, Hallucinations Thought Processes (Zwffxiw-Rpsjbfgj-Dvcv logical/coherent Pkrbjsch-Fmskmuki-Amenasmpnk- Voyqfdncsojwzj-Ltwwujz-Xouystinncuq- Thought Blocking) Speech (Cpfupq-Kxgx-Cfwjwwr-Rapid-Soft- rapid/normal Loud-Pressured) Motor (Koigcz-Cnpcaggiw-Xmef-Other) normal, not formally assessed Insight (Twir-Fbei-Jgqv/Limited) good Judgement (Bgcc-Fwki-Ypyk/Limited) good Impulse Control (Adequate-Impaired) adequate Memory (Ltfxvgvpl-Veixgh-Rdmhwc, intact Impaired-Intact) Concentration (Intact-Impaired) intact Attention (Intact-Impaired) intact Behavior (Appropriate-Inappropriate) appropriate Additional Comment Patient is calm and communicative Risk Assessment Suicidal Ideation (Plan) No Homicidal Ideation (Plan) No Intervention Intervention PROPERTY ACCOUNTANT enters room to meet with patient and patient agrees to speak with PROPERTY ACCOUNTANT. Patient endorses increased anxiety, life stresses and medication changes that are causing physical reactions impacting her daily life. Patient denies SI and HI. Patient endorses that she has a PCP appt scheduled with physician at [facility] for Thursday08/06/21 but wants to address her anxiety sooner. Patient endorses she is connected with services at [facility] and has a case packer, is engaged in the 12-step program and engages in meditation. Patient endorses she feels safe. PROPERTY ACCOUNTANT discusses MH outpatient and patient endorses that she has been seeking providers but has been unsuccessful. PROPERTY ACCOUNTANT searches on patient's insurance website and provides patient with list of MH outpatient and Psychiatrist providers that accept her insurance. It is the opinion of this PROPERTY ACCOUNTANT that patient is safe to d/c to home when medically clear. PROPERTY ACCOUNTANT reviews the above with ED provider Dr. Malcolm who indicates agreement and understanding. Plan RA Plan Patient to d/c to home when medically clear, to f/u with PCP early next week and seek MH outpatient provider. ROSANA Hines
--- NOTE | 2021-07-31 20:26 | ED.ANXIETY ---
HPI - Anxiety General Chief Complaint: Anxiety Stated Complaint: thinks stopped mental health meds too soon Time Seen by Provider: 07/31/21 20:17 Source: patient Mode of arrival: Ambulatory Limitations: no limitations History of Present Illness HPI narrative: This is a 35-year-old female with known anxiety and bipolar. Patient states her bipolar feels stable she is on lamotrigine daily. They have been tapering down her Ativan she was on 1 mg in the morning and 1 in the evening times 1 week then lowered to 1 mg daily x1 week and has not had any for the last 2 days. Patient states she has felt increasing spike in her anxiety she has felt shaky, slightly nauseous. Patient states that they also increased her BuSpar from twice daily to 3 times daily. She states this seemed to make things worse as well and she has contacted her twice daily dosage. She has an appointment next Thursday with primary care scheduled to discuss her medication adjustment. Patient denies any other major medical issues. She does smoke occasional alcohol, no illicit. She has been trying to reach out for a psychologist to follow-up with counseling. Related Data Home Medications Medication Instructions Recorded Confirmed lamotrigine 25 mg tablet 25 mg PO QPM 12/06/19 12/06/19 norgestimate-ethinyl estradiol 1 tab PO QPM 12/06/19 12/06/19 0.18 mg/0.215mg/0.25mg-35 mcg(28)tablet (Ortho Tri-Cyclen (28)) trazodone 50 mg tablet 50 mg PO BEDTIME PRN 12/06/19 12/06/19 Previous Rx's Medication Instructions Recorded ciprofloxacin HCl 500 mg tablet 500 mg PO BID #28 tab 03/06/21 hydrocodone 5 mg-acetaminophen 325 1 tab PO Q6H PRN #10 tab 03/06/21 mg tablet ondansetron HCl 4 mg tablet 4 mg PO Q6H PRN #10 tab 03/06/21 (Zofran) hydrocodone 5 mg-acetaminophen 325 1 tab PO Q4-6H PRN #10 tab 03/09/21 mg tablet ondansetron 4 mg disintegrating 4 mg PO TID-QID PRN #10 tab 03/09/21 tablet lorazepam 0.5 mg tablet (Ativan) 0.5 mg PO BEDTIME PRN #7 tab 07/31/21 Allergies Allergy/AdvReac Type Severity Reaction Status Date / Time No Known Drug Allergies Allergy Verified 03/06/21 11:49 Review of Systems Review of Systems ROS Unobtainable: All systems reviewed & are unremarkable except as noted in HPI and below Patient History Medical History Kidney stones Migraine Social History Smoking Status: Current every day smoker Smoking Status: Current every day smoker tobacco type: vaping alcohol intake frequency: holidays/special occasions only Substance Use Type: does not use Exam Narrative Exam Narrative: GEN: well nourished, well appearing female, alert and oriented x 3, patient appears to be in mild distress. HEENT: Atraumatic, pupils are equal round reactive to light, extraocular movements are intact, nares are clear. HEART: Regular rate and rhythm without murmur, clicks, rubs. LUNGS:Lungs clear to auscultation, no wheezes, rales, crackles, chest moves symmetrically ABD:bowel sounds normal, soft, non-tender, no guarding, rebound, rigidity, no masses noted, no hepatosplenomegaly :No CVA tenderness MSCL: Non-tender, no muscle atrophy, muscles strength 5/5 upper and lower extremities, full range of motion, normal gait NEURO:CN 2-12 intact, sensation normal, mildly shaky. SKIN: No rash, erythema or skin changes PSYCH: No suicidal homicidal ideation positive for anxiety. Patient states she does not feel like any for bipolar symptoms are exacerbated or worsening currently. Initial Vital Signs Initial Vital Signs: Vital Signs Temperature 98.1 F 07/31/21 19:23 Pulse Rate 82 07/31/21 19:23 Respiratory Rate 22 07/31/21 19:23 Blood Pressure 146/76 H 07/31/21 19:23 Pulse Oximetry 100 07/31/21 19:23 Course Orders Ordered: Discontinued Medications Lorazepam (Lorazepam 0.5 Mg Tablet) 0.5 mg PO NOW ONE Stop: 07/31/21 20:37 Last Admin: 07/31/21 20:47 Dose: 0.5 mg Documented by: ROMÁN Vital Signs Vital signs: Vital Signs - 8 hr 07/31/21 19:23 07/31/21 20:46 Temperature 98.1 F Pulse Rate 82 84 Respiratory Rate 22 Blood Pressure 146/76 H 131/95 H Pulse Oximetry 100 100 MDM - Anxiety MDM Narrative Medical decision making narrative: This is a 35-year-old female comes emergency department with complaint spike in her anxiety as well as some physiologic symptoms that seem consistent with benzodiazepine withdrawal. Patient was taking 2 mg daily she was titrated down 1 mg daily over a week and then stopped completely 2 days ago. She does have a history of bipolar she states that this seems to be controlled at the time and she is also taking lamotrigine and BuSpar. Her abuse for dose was upped from 2 tablets to 3 tablets daily and she returned back to 2 tablets daily as this seemed also potentially exacerbate her symptoms. She has set up follow-up in the following week with her primary care physicians who have been adjusting her medications but she is also attempting to seek counseling and potentially a psychiatrist. Discussed a short course of a lower dose particularly for sleep. Patient was given resources by our long term care social worker. She does not have any thoughts of harming herself or others appears to have good insight at this time and does plan to return if she has any concerning symptoms changes. Discharge Plan Departure Patient Disposition: Home Clinical Impression: Anxiety Instructions: DI for Anxiety -- Adult Activity Restrictions/Additional Instructions: Follow up with your physician at your scheduled appointment. I do believe your likely experiencing some symptoms of withdrawal from your medication. This will start to improve over the next few days but taking a small dose in the evening may be helpful. You will ultimately have to stop it completely and will still have some symptoms. You may take medication as prescribed. You may take 1/2 tablet to 1 tablet before sleep. This medication can make you sleepy do not drive, perform hazardous activities or make any major decisions while taking it. Prescription sent to [facility] in [place] Please return for fevers, new chest pain or shortness of breath, passing out, persistent vomiting, black or bloody stools or other new or concerning symptoms. Prescriptions: New lorazepam [Ativan] 0.5 mg tablet 0.5 mg PO BEDTIME PRN (Reason: anxiety) Qty: 7 RF: 0 No Action trazodone 50 mg Tablet 50 mg PO BEDTIME PRN (Reason: Sleep) RF: 0 lamotrigine 25 mg Tablet 25 mg PO QPM RF: 0 norgestimate-ethinyl estradiol [Ortho Tri-Cyclen (28)] 0.18/0.215/0.25 mg-35 mcg (28) Tablet 1 tab PO QPM RF: 0 ciprofloxacin HCl 500 mg tablet 500 mg PO BID Qty: 28 RF: 0 ondansetron HCl [Zofran] 4 mg tablet 4 mg PO Q6H PRN (Reason: nausea and vomiting) Qty: 10 RF: 0 hydrocodone-acetaminophen 5-325 mg tablet 1 tab PO Q6H PRN (Reason: pain) Qty: 10 RF: 0 hydrocodone-acetaminophen 5-325 mg tablet 1 tab PO Q4-6H PRN (Reason: pain) Qty: 10 RF: 0 ondansetron 4 mg tablet,disintegrating 4 mg PO TID-QID PRN (Reason: nausea and vomiting) Qty: 10 RF: 0 Referrals: Salbador Ludwig DO [Primary Care Provider] -
[2021-07-31 20:46] VITALS: BP 131/95; PULSE 84; O2SAT 100
[2021-07-31] MEDS: LORazepam 0.5 MG TABLET PO (20:47)
== END 2021-07-31 20:50 | disposition home or self-care (01) ==
PROVIDERS: Emergency Provider Emergency Medicine; Family Provider Family Medicine; PCP Family Medicine
DX: F41.9 Anxiety disorder, unspecified (principal)
CPT/HCPCS: 99283

== ENCOUNTER 2021-08-16 21:12 | Emergency (ER) | payer BC, OTHER, MEDICAID, SELFPAY ==
[2021-08-16 21:15] VITALS: BP 135/88; PULSE 95; RESP 14; TEMP 36.7; O2SAT 100; BMI 24.0
[2021-08-16] MEDS: MORPHINE 2 MG/ML INJ IV (23:30)
[2021-08-16] MEDS: ONDANSETRON 4 MG/2 ML INJ IV (23:30)
[2021-08-16 23:34] VITALS: BP 134/87; PULSE 72; RESP 16; O2SAT 99
[2021-08-16] MEDS: SODIUM CHLORIDE 0.9% 1,000 ML 1000 ML IV (23:35)
--- NOTE | 2021-08-16 23:40 | ED_ITS ---
HPI - Headache General Chief Complaint: Headache Stated Complaint: Migraine,hx of same Time Seen by Provider: 08/16/21 23:40 Mode of arrival: Ambulatory Limitations: no limitations History of Present Illness HPI Narrative: Patient is a 35-year-old female history of kidney stones in migraine headaches. She says he has had increase in migraines over last 1 month. She says that she has at least had headache every single day. His this headaches he has had for the last 3 days it continues to just get worse. She typically takes Tylenol and ibuprofen for it which takes his and pain down but does not totally make it go away. She says that this 1 has changed going more on her face and jaw now. This is atypical for her. She also thinks that she may be passing a kidney stone. She has passed multiple in the past. Is worried she may have a bladder infection. She is having some right flank pain radiating to her abdomen as well. She has previously required lithotripsy. She is having some nausea but no vomiting. She has no numbness tingling is or weakness. She has no chest pain or palpitations. She wonders if maybe the kidney issue is making her headache worse. She is quite sensitive to light she denies sensitivity to noise. Prior history of appendectomy. Related Data Home Medications Medication Instructions Recorded Confirmed lamotrigine 25 mg tablet 25 mg PO QPM 12/06/19 12/06/19 norgestimate-ethinyl estradiol 1 tab PO QPM 12/06/19 12/06/19 0.18 mg/0.215mg/0.25mg-35 mcg(28)tablet (Ortho Tri-Cyclen (28)) trazodone 50 mg tablet 50 mg PO BEDTIME PRN 12/06/19 12/06/19 Previous Rx's Medication Instructions Recorded ciprofloxacin HCl 500 mg tablet 500 mg PO BID #28 tab 03/06/21 hydrocodone 5 mg-acetaminophen 325 1 tab PO Q6H PRN #10 tab 03/06/21 mg tablet ondansetron HCl 4 mg tablet 4 mg PO Q6H PRN #10 tab 03/06/21 (Zofran) hydrocodone 5 mg-acetaminophen 325 1 tab PO Q4-6H PRN #10 tab 03/09/21 mg tablet ondansetron 4 mg disintegrating 4 mg PO TID-QID PRN #10 tab 03/09/21 tablet lorazepam 0.5 mg tablet (Ativan) 0.5 mg PO BEDTIME PRN #7 tab 07/31/21 sumatriptan 20 mg/actuation nasal 20 mg INTRANASAL Q2H PRN #6 ea 08/17/21 spray (Imitrex) Allergies Allergy/AdvReac Type Severity Reaction Status Date / Time ketorolac [From Toradol] Allergy Rash Verified 08/16/21 21:19 prochlorperazine AdvReac Verified 08/16/21 21:19 [From Compazine] Review of Systems Review of Systems ROS Unobtainable: All systems reviewed & are unremarkable except as noted in HPI and below Constitutional Constitutional: Denies body ache(s), Denies chills, Denies fever(s) and Reports headache(s) Eyes Eyes: Denies blurry vision, Denies change in vision and Reports photophobia ENT Ears, Nose, Mouth, and Throat: Denies vertigo, Denies dizziness, Reports headache(s) and Denies neck pain Cardiovascular Cardiovascular: Denies chest pain, Denies syncope, Denies lightheadedness and Denies dyspnea on exertion Respiratory Respiratory: Denies chest congestion, Denies cough and Denies dyspnea on exertion Gastrointestinal Gastrointestinal: Reports as per HPI, Denies abdominal pain, Denies constipation, Reports nausea and Denies vomiting Genitourinary Genitourinary: Reports as per HPI, Reports dysuria, Denies urinary incontinence and Reports urinary urgency Musculoskeletal Musculoskeletal: Denies back pain, Denies myalgias and Denies neck pain Integumentary/Breasts Skin/Breast: Denies rash Neurologic Neurologic: Reports as per HPI, Denies vertigo, Denies dizziness, Denies syncope, Reports headache(s) and Denies memory loss Psychiatric Psychiatric: Denies memory loss Patient History Medical History Kidney stones Migraine Social History Smoking Status: Current every day smoker Smoking Status: Current every day smoker tobacco type: vaping alcohol intake frequency: holidays/special occasions only Substance Use Type: does not use Exam Initial Vital Signs Initial Vital Signs: Vital Signs Temperature 98.1 F 08/16/21 21:15 Pulse Rate 95 H 08/16/21 21:15 Respiratory Rate 14 08/16/21 21:15 Blood Pressure 135/88 08/16/21 21:15 Pulse Oximetry 100 08/16/21 21:15 GENERAL: Alert female 35 years old in dark room HEENT: Head atraumatic,EOMI, pupils reactive, face symmetric, moist mucous membranes NECK: Supple no vertebral tenderness no step-off CARDIOVASCULAR: Regular rate and rhythm without murmurs, rubs or gallops. RESPIRATORY: Breath sounds equal bilaterally, no wheezes rales or rhonchi. ABDOMEN: Soft, with right lower quadrant pain no guarding or rebound negative right upper quadrant pain : mild right CVA tenderness EXTREMITIES: Normal range of motion, no clubbing or edema. Neurovascularly intact NEUROLOGICAL: Alert and oriented x4.Normal gait and speech. Cranial nerves II through XII grossly intact. Eap Clinician strength equal bilaterally SKIN: Warm, dry, no laceration, no petechiae, no rashes or lesions. Scores NIH Stroke Scale Level of Conciousness: Alert, keenly responsive Ask month/age: Answers both questions correctly. Open/close eyes, close hand: Performs both tasks correctly Best gaze horizontal: Normal Visual weeks: No visual loss Facial palsy: Normal symetrical movement Left arm drift: No drift for full 10 sec Right arm drift: No drift for full 10 sec Left leg drift: No drift for full 5 sec Right leg drift: No drift for full 5 sec Limb ataxia: Absent Sensory on face/arms/legs: Normal, no sensory loss Best language: No aphasia, normal Dysarthria: Normal Extinction or inattention: No abnormality Total NIH Stroke scale score: 0 Course Orders Ordered: ED Orders 08/16/21 21:30 Complete Blood Count AUTO DIFF Stat Comprehensive Metabolic Panel Stat Discontinued Medications Acetaminophen (Acetaminophen 325 Mg Tablet) 975 mg PO NOW ONE Stop: 08/16/21 23:53 Last Admin: 08/17/21 00:06 Dose: 975 mg Documented by: MATT Sodium Chloride (Normal Saline 0.9%) 1,000 mls @ 1,000 mls/hr IV BOLUS ONE Stop: 08/17/21 00:25 Last Infusion: 08/17/21 00:37 Dose: 0 mls/hr Documented by: Admin: 08/16/21 23:35 Dose: 1,000 mls/hr Documented by: MAYCOL Morphine Sulfate (Morphine 2 Mg/Ml Inj) 2 mg IV NOW ONE Stop: 08/16/21 23:26 Last Admin: 08/16/21 23:30 Dose: 2 mg Documented by: MAYCOL Morphine Sulfate (Morphine 4 Mg/Ml Inj) 4 mg IV NOW ONE Stop: 08/17/21 00:34 Last Admin: 08/17/21 00:37 Dose: 4 mg Documented by: MATT Ondansetron HCl (Ondansetron 4 Mg/2 Ml Inj) 4 mg IV NOW ONE Stop: 08/16/21 23:26 Last Admin: 08/16/21 23:30 Dose: 4 mg Documented by: MAYCOL Sumatriptan Succinate (Sumatriptan 6 Mg/0.5 Ml Vial) 6 mg SUBCUT NOW ONE Stop: 08/16/21 23:53 Last Admin: 08/17/21 00:06 Dose: 6 mg Documented by: MATT Vital Signs Vital signs: Vital Signs - 8 hr 08/16/21 21:15 08/16/21 23:34 Temperature 98.1 F Pulse Rate 95 H 72 Respiratory Rate 14 16 Blood Pressure 135/88 134/87 Pulse Oximetry 100 99 MDM - Headache Lab Data Result diagrams: 08/16/21 21:30 08/16/21 21:30 Labs: Lab Results 08/16/21 08/16/21 Range/Units 21:30 21:30 WBC 7.8 (4.5-11.0) X10^3/uL RBC 3.54 L (4.0-5.2) X10^6/uL Hgb 10.9 L (12.0-16.0) g/dL Hct 32.6 L (36-46) % MCV 92.1 (80-100) fL MCH 30.7 (26-34) PG MCHC 33.3 (30-36) % RDW 14.1 (11.6-14.8) % Plt Count 307 (150-400) X10^3/uL Neut % (Auto) 73.1 (50-75) % Lymph % (Auto) 20.8 L (25-40) % Morrill % (Auto) 5.0 (3-14) % Eos % (Auto) 0.6 L (2-4) % Baso % (Auto) 0.5 (0-2) % Neut # (Auto) 5700 (4841-7608) /uL Lymph # (Auto) 1600 (4985-9101) /uL Morrill # (Auto) 400 (0-900) /uL Eos # (Auto) 0 (0-450) /uL Baso # (Auto) 0 (0-100) /uL Sodium 135 L (137-145) mmol/L Potassium 3.7 (3.4-5.1) mmol/L Chloride 100 (98-107) mmol/L Carbon Dioxide 27 (22-32) mmol/L BUN 12 (7-17) mg/dL Creatinine 0.77 (0.52-1.04) mg/dL Estimated GFR > 60.0 (>60) mL/min BUN/Creatinine Ratio 15.6 (6-22) Glucose 96 (70-100) mg/dL Calcium 9.4 (8.4-10.2) mg/dL Total Bilirubin 0.3 (0.2-1.3) mg/dL AST 30 (14-36) IU/L ALT 12 (<35) IU/L Alkaline Phosphatase 60 (38-126) U/L Total Protein 7.9 (6.3-8.2) g/dL Albumin 4.7 (3.5-5.0) g/dL Globulin 3.2 (1.7-4.1) g/dL Albumin/Globulin Ratio 1.5 (1.0-2.8) Point of Care Testing Test Results Negative Urine Dip Bedside Urine Glucose Negative Bedside Urine Ketone - Negative Urine Specific Casar 1.010 Bedside Urine Occult Blood +++ Bedside Urine pH 6.5 Bedside Urine Protein - Negative Bedside Urine Urobilinogen - Negative Bedside Urine Nitrite - Negative Bedside Urine Leukocytes - Negative Esterase MDM Narrative Medical decision making narrative: The patient is a allergic to medications in cluding Toradol and Compazine. She says that many physicians have tried multiple medications in the past some work and some do not she is open to anything at this time. Imitrex seem to work wonders for her she overall feels significantly better in regards to her migraine headache. She still has some mild ongoing right flank pain which she was given Tylenol for as well. Blood work does not show any acute renal injury. And she does not have any infection however she does have a him hematuria. I discussed with her possible CT scan in the ED. She says the pain really has been off and on for the last 1 month and is tolerable. She previously was almost septic from a large kidney stone that she had for about 2 months. She is follow closely with her urologist. At this time she opted not to have a CT and will call her urologist on Thursday. Discharge Plan Departure Patient Disposition: Home Clinical Impression: Migraine, Kidney stone Instructions: DI for Kidney Stones, DI for Migraine Activity Restrictions/Additional Instructions: *You have been diagnosed with migraine headache and presumed kidney stone *What to do: At this time it is presumed have a kidney stone on the right. I recommend that he follow-up with urology in regards to this you may need some imaging. However at this time no antibiotics are needed. I am happy to say that Imitrex works for your migraine headache. Please talk to your primary care provider in regards to this medication *Continue to take medications as directed Imitrex 20mg nasal for migraine headache may repeat in 2 hours if needed. No m ore than 40 mg in 24 hour.-> [facility] *Follow up with your primary care provider in 2-3 days *Return to ER if you should have increasing right-sided flank pain, fever, worsening headache, weakness numbness or tingling or any new, worsening or concerning symptoms Prescriptions: New sumatriptan [Imitrex] 20 mg/actuation spray,non-aerosol 20 mg intranasal Q2H PRN (Reason: migraine headache) Qty: 6 RF: 0 No Action trazodone 50 mg Tablet 50 mg PO BEDTIME PRN (Reason: Sleep) RF: 0 lamotrigine 25 mg Tablet 25 mg PO QPM RF: 0 norgestimate-ethinyl estradiol [Ortho Tri-Cyclen (28)] 0.18/0.215/0.25 mg-35 mcg (28) Tablet 1 tab PO QPM RF: 0 ciprofloxacin HCl 500 mg tablet 500 mg PO BID Qty: 28 RF: 0 ondansetron HCl [Zofran] 4 mg tablet 4 mg PO Q6H PRN (Reason: nausea and vomiting) Qty: 10 RF: 0 hydrocodone-acetaminophen 5-325 mg tablet 1 tab PO Q6H PRN (Reason: pain) Qty: 10 RF: 0 hydrocodone-acetaminophen 5-325 mg tablet 1 tab PO Q4-6H PRN (Reason: pain) Qty: 10 RF: 0 ondansetron 4 mg tablet,disintegrating 4 mg PO TID-QID PRN (Reason: nausea and vomiting) Qty: 10 RF: 0 lorazepam [Ativan] 0.5 mg tablet 0.5 mg PO BEDTIME PRN (Reason: anxiety) Qty: 7 RF: 0 Referrals: Salbador Ludwig DO [Primary Care Provider] -
[2021-08-16 23:42] VITALS: PULSE 72; O2SAT 99
[2021-08-17] VITALS: BP 121/74; PULSE 68; O2SAT 99
[2021-08-17] MEDS: SUMAtriptan 6 MG/0.5 ML VIAL SUBCUT (00:06)
[2021-08-17] MEDS: ACETAMINOPHEN 325 MG TABLET 975 MG PO (00:06)
[2021-08-17 00:30] VITALS: BP 137/82; PULSE 58; O2SAT 100
[2021-08-17 00:33] LABS: Add Manual Diff / Slide Review NO; Basophils Absolute Auto 0 /uL (0-100); Basophils Percent Auto 0.5 % (0-2); Eosinophils Absolute Auto 0 /uL (0-450); Eosinophils Percent Auto 0.6 % (2-4); Hematocrit 32.6 % (36-46); Hemoglobin 10.9 g/dL (12.0-16.0); Lymphocytes Absolute Auto 1600 /uL (1100-4500); Lymphocytes Percent Auto 20.8 % (25-40); Mean Corpuscular HGB Conc 33.3 % (30-36); Mean Corpuscular Hemoglobin 30.7 PG (26-34); Mean Corpuscular Volume 92.1 fL (80-100); Monocytes Absolute Auto 400 /uL (0-900); Neutrophils Absolute Auto 5700 /uL (1500-7000); Neutrophils Percent Auto 73.1 % (50-75); Platelet Count 307 X10^3/uL (150-400); Red Blood Cell Count 3.54 X10^6/uL (4.0-5.2); Red Cell Distribution Width 14.1 % (11.6-14.8); White Blood Cell Count 7.8 X10^3/uL (4.5-11.0)
[2021-08-17] MEDS: MORPHINE 4 MG/ML INJ IV (00:37)
[2021-08-17 00:39] LABS: Alanine Aminotransferase 12 IU/L (<35); Albumin 4.7 g/dL (3.5-5.0); Albumin Globulin Ratio 1.5 (1.0-2.8); Alkaline Phosphatase 60 U/L (38-126); Aspartate Aminotransferase 30 IU/L (14-36); BUN Creatinine Ratio 15.6 (6-22); Bilirubin Total 0.3 mg/dL (0.2-1.3); Blood Urea Nitrogen 12 mg/dL (7-17); Calcium 9.4 mg/dL (8.4-10.2); Carbon Dioxide 27 mmol/L (22-32); Chloride 100 mmol/L (98-107); Estimated Glomerular Filt Rate > 60.0 mL/min (>60); Globulin 3.2 g/dL (1.7-4.1); Glucose 96 mg/dL (70-100); HEMOLYSIS 25 (0-50); Potassium 3.7 mmol/L (3.4-5.1); Sodium 135 mmol/L (137-145); Total Protein 7.9 g/dL (6.3-8.2)
[2021-08-17 01:02] VITALS: PULSE 64; O2SAT 96
[2021-08-17 01:29] VITALS: BP 141/87; PULSE 67; O2SAT 99
[2021-08-17 01:30] VITALS: BP 143/89; PULSE 63; O2SAT 99
== END 2021-08-17 01:35 | disposition home or self-care (01) ==
PROVIDERS: Emergency Provider Emergency Medicine; Family Provider Family Medicine; PCP Family Medicine
DX: G43.909 Migraine, unspecified, not intractable, without status migrainosus (principal); N20.0 Calculus of kidney
CPT/HCPCS: 36415; 80053; 81003; 81025; 85025; 96361; 96372; 96374; 96375; 96376; 99284; J2270; J2405; J3030

== ENCOUNTER 2021-08-22 15:40 | Emergency (ER) | payer OTHER, MEDICAID, SELFPAY ==
[2021-08-22 16:12] VITALS: BP 145/89; PULSE 85; RESP 16; TEMP 37.1; O2SAT 100; BMI 23.3
== END 2021-08-22 16:54 | disposition left against medical advice (07) ==
PROVIDERS: Emergency Provider Emergency Medicine; Family Provider Family Medicine; PCP Family Medicine

== ENCOUNTER 2021-08-22 21:40 | Emergency (ER) | payer OTHER, MEDICAID, SELFPAY ==
[2021-08-22 21:46] VITALS: BP 149/96; PULSE 86; RESP 16; TEMP 36.8; O2SAT 99; BMI 23.3
[2021-08-22 22:30] VITALS: BP 128/82; PULSE 77; RESP 15; O2SAT 99
--- NOTE | 2021-08-22 22:38 | ED.EXTPRO ---
HPI - Extremity Problem General Chief complaint: Extremity Problem,Nontraumatic Stated complaint: upper lt chest and armpit pain Time Seen by Provider: 08/22/21 22:38 Source: patient Mode of arrival: Ambulatory Limitations: no limitations History of Present Illness HPI Narrative: This is a 35-year-old female comes with complaint of left neck, upper chest and arm pain. Patient states it has been going on for several days. She states it radiates down her arm. She states worse particularly with extension of her neck but sometimes even flexion or rotation makes it worse as well as movement. Patient has had some paresthesias with some numbness tingling in her fingers she can feel them gets pins and needles sensation. 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 Patient does not recall any injury. She has had somewhat similar symptoms in the past but not this persistent or painful. She is currently being worked up for lupus and has a strong family history of autoimmune diseases, she has had prior kidney stones and migraines. She was seen recently for migraine and states her symptoms started short time after that. She states she is allergic to Compazine and Toradol. Compazine is a dystonic reaction and Toradol she has had rashes but she has also had it with Benadryl and not rash. Patient denies any other fever, cough cold or congestion. No other shortness of breath. She has not had any other GI or urinary symptoms. No numbness or tingling elsewhere. She has had surgery for removal of a kidney stone on her back. Related Data Home Medications Medication Instructions Recorded Confirmed lamotrigine 25 mg tablet 25 mg PO QPM 12/06/19 12/06/19 norgestimate-ethinyl estradiol 1 tab PO QPM 12/06/19 12/06/19 0.18 mg/0.215mg/0.25mg-35 mcg(28)tablet (Ortho Tri-Cyclen (28)) trazodone 50 mg tablet 50 mg PO BEDTIME PRN 12/06/19 12/06/19 Previous Rx's Medication Instructions Recorded ciprofloxacin HCl 500 mg tablet 500 mg PO BID #28 tab 03/06/21 hydrocodone 5 mg-acetaminophen 325 1 tab PO Q6H PRN #10 tab 03/06/21 mg tablet ondansetron HCl 4 mg tablet 4 mg PO Q6H PRN #10 tab 03/06/21 (Zofran) hydrocodone 5 mg-acetaminophen 325 1 tab PO Q4-6H PRN #10 tab 03/09/21 mg tablet ondansetron 4 mg disintegrating 4 mg PO TID-QID PRN #10 tab 03/09/21 tablet lorazepam 0.5 mg tablet (Ativan) 0.5 mg PO BEDTIME PRN #7 tab 07/31/21 sumatriptan 20 mg/actuation nasal 20 mg INTRANASAL Q2H PRN #6 ea 08/17/21 spray (Imitrex) hydrocodone 5 mg-acetaminophen 325 1 tab PO Q6H PRN #10 tab 08/22/21 mg tablet prednisone 50 mg tablet 50 mg PO DAILY #5 tab 08/22/21 Allergies Allergy/AdvReac Type Severity Reaction Status Date / Time ketorolac [From Toradol] Allergy Rash Verified 08/16/21 21:19 prochlorperazine AdvReac Verified 08/16/21 21:19 [From Compazine] Review of Systems Review of Systems ROS Unobtainable: All systems reviewed & are unremarkable except as noted in HPI and below Patient History Medical History Kidney stones Migraine Social History Smoking Status: Current every day smoker Smoking Status: Current every day smoker tobacco type: vaping alcohol intake frequency: holidays/special occasions only Substance Use Type: does not use Exam Narrative Exam Narrative: GENERAL: Alert and oriented x three, female in [id number] distress. HEENT: Head normocephalic, atraumatic, EOMI, pupils reactive, face symmetric, moist mucous membranes NECK: Supple, full range of motion, patient has tenderness over the neck. She has increased pain with flexion and rotation particularly to the right and downward pressing with a positive Spurling's. Patient does not have any warmth erythema or skin changes. CARDIOVASCULAR: Regular rate and rhythm without murmurs, rubs or gallops. RESPIRATORY: Breath sounds equal bilaterally, no wheezes rales or rhonchi. ABDOMEN: Soft, nontender. Normoactive bowel sounds all 4 quadrants. No guarding or rebound, rigidity, no mass : No CVA tenderness EXTREMITIES: Normal range of motion, no clubbing or edema. Neurovascularly intact. 5/5 muscle strength in upper extremities with push-pull. Very mild decrease in left versus right chemical dependency nurse. Patient has 2+ radial pulse bilaterally. Sensation to light touch throughout both upper extremities. NEUROLOGICAL: Cranial nerves II through XII grossly intact. Moving all extremities SKIN: Warm, dry, no petechiae, no rashes or lesions. Initial Vital Signs Initial Vital Signs: Vital Signs Temperature 98.3 F 08/22/21 21:46 Pulse Rate 86 08/22/21 21:46 Respiratory Rate 16 08/22/21 21:46 Blood Pressure 149/96 H 08/22/21 21:46 Pulse Oximetry 99 08/22/21 21:46 Course Orders Ordered: Discontinued Medications Morphine Sulfate (Morphine 4 Mg/Ml Inj) 4 mg IM NOW ONE Stop: 08/22/21 22:56 Last Admin: 08/22/21 23:01 Dose: 4 mg Documented by: SIMONE Prednisone (Prednisone 20 Mg Tablet) 60 mg PO NOW ONE Stop: 08/22/21 22:55 Last Admin: 08/22/21 23:00 Dose: 60 mg Documented by: SIMONE Vital Signs Vital signs: Vital Signs - 8 hr 08/22/21 21:46 08/22/21 22:30 08/22/21 22:43 Temperature 98.3 F Pulse Rate 86 77 77 Respiratory Rate 16 15 Blood Pressure 149/96 H 128/82 Pulse Oximetry 99 99 99 08/22/21 23:00 08/22/21 23:01 Temperature Pulse Rate 82 78 Respiratory Rate Blood Pressure 145/89 H Pulse Oximetry 99 99 MDM - Extremity (Nontraumatic) MDM Narrative Medical decision making narrative: This is a 35-year-old female who has left upper extremity and shoulder pain radiating down her arm with paresthesias which is worsened particularly with extension of her neck. Patient does not have any red flag symptoms but return precautions were discussed. Discharge Plan Departure Patient Disposition: Home Clinical Impression: Cervical radiculopathy Activity Restrictions/Additional Instructions: Your exam today is consistent with a cervical radiculopathy. This is when the nerve can have impingement from the neck and cause pain and numbness and tingling down your arm. I would recommend follow-up with her primary care or if this is difficult Orthopedic surgery referral is included. Call for an appointment. Steroids can be helpful. Take these daily until gone. You can continue gabapentin regularly and may be helpful if you take it on a daily basis. You may take pain medication as prescribed. This medication can make you sleepy do not drive, perform hazardous activities or make any major decisions while taking it. This medication will make you constipated please take a stool softener once to twice daily until stools are soft and regular. Prescription sent to [facility] in [place]. Please return for rapidly worsening symptoms, loss of sensation, new weakness or difficulty moving your fingers, hand or lifting or moving your wrist, new chest pain or shortness of breath, passing out, loss of bowel or bladder control or other new or concerning symptoms. Prescriptions: New prednisone 50 mg tablet 50 mg PO DAILY Qty: 5 RF: 0 hydrocodone-acetaminophen 5-325 mg tablet 1 tab PO Q6H PRN (Reason: pain) Qty: 10 RF: 0 No Action trazodone 50 mg Tablet 50 mg PO BEDTIME PRN (Reason: Sleep) RF: 0 lamotrigine 25 mg Tablet 25 mg PO QPM RF: 0 norgestimate-ethinyl estradiol [Ortho Tri-Cyclen (28)] 0.18/0.215/0.25 mg-35 mcg (28) Tablet 1 tab PO QPM RF: 0 ciprofloxacin HCl 500 mg tablet 500 mg PO BID Qty: 28 RF: 0 ondansetron HCl [Zofran] 4 mg tablet 4 mg PO Q6H PRN (Reason: nausea and vomiting) Qty: 10 RF: 0 hydrocodone-acetaminophen 5-325 mg tablet 1 tab PO Q6H PRN (Reason: pain) Qty: 10 RF: 0 hydrocodone-acetaminophen 5-325 mg tablet 1 tab PO Q4-6H PRN (Reason: pain) Qty: 10 RF: 0 ondansetron 4 mg tablet,disintegrating 4 mg PO TID-QID PRN (Reason: nausea and vomiting) Qty: 10 RF: 0 lorazepam [Ativan] 0.5 mg tablet 0.5 mg PO BEDTIME PRN (Reason: anxiety) Qty: 7 RF: 0 sumatriptan [Imitrex] 20 mg/actuation spray,non-aerosol 20 mg intranasal Q2H PRN (Reason: migraine headache) Qty: 6 RF: 0 Referrals: Salbador Ludwig DO [Primary Care Provider] -
[2021-08-22 22:43] VITALS: PULSE 77; O2SAT 99
[2021-08-22 23:00] VITALS: PULSE 82; O2SAT 99
[2021-08-22] MEDS: predniSONE 20 MG TABLET 60 MG PO (23:00)
[2021-08-22 23:01] VITALS: BP 145/89; PULSE 78; O2SAT 99
[2021-08-22] MEDS: MORPHINE 4 MG/ML INJ IM (23:01)
== END 2021-08-22 23:09 | disposition home or self-care (01) ==
PROVIDERS: Emergency Provider Emergency Medicine; Family Provider Family Medicine; PCP Family Medicine
DX: M54.12 Radiculopathy, cervical region (principal); R07.9 Chest pain, unspecified
CPT/HCPCS: 96372; 99281; 99283; J2270

== ENCOUNTER 2021-08-24 09:53 | Emergency (ER) | payer BC, OTHER, MEDICAID, SELFPAY ==
[2021-08-24 10:32] VITALS: BP 129/89; PULSE 83; RESP 20; TEMP 37; O2SAT 98; BMI 25.0
--- NOTE | 2021-08-24 10:41 | DI.CT.S_ITS ---
PROCEDURE: CT CERVICAL SPINE WO CON INDICATIONS: severe left sided pain no injury TECHNIQUE: Noncontrast 3 mm thick sections acquired from the skull base to the T4 level. Sagittal and coronal reformats were then constructed. For radiation dose reduction, the following was used: automated exposure control, adjustment of mA and/or kV according to patient size. COMPARISON: None. FINDINGS: Image quality: Excellent. Bones: No fractures or dislocations. Visualized superior ribs are intact. Reversal of the normal cervical lordosis is seen, with the apex at the C5-C6 level. No focal AP alignment abnormality is seen. At C5-C6, there is mild disc space narrowing, with associated endplate irregularity and sclerosis. Soft tissues: Prevertebral soft tissues are normal in thickness. No paravertebral hematomas. No apical pneumothoraces. Note is made of a partially calcified right thyroid nodule that measures up to 1.4 cm, as on series 3, image 54. IMPRESSION: Focal C5-C6 degenerative change. Reversal of the normal cervical lordosis is seen. This is commonly observed in patients with muscular spasm. Partially calcified right thyroid nodule incidentally noted. Dictated by: Parish Rosas M.D. on 08/24/2021 at 10:12 Approved by: Parish Rosas M.D. on 08/24/2021 at 10:14
[2021-08-24] MEDS: MORPHINE 4 MG/ML INJ IM (10:57)
[2021-08-24] MEDS: diazePAM 5 MG TABLET PO (10:58)
[2021-08-24 11:02] VITALS: BMI 25.0
--- NOTE | 2021-08-24 11:14 | ED.NECK ---
HPI - Neck Pain/Injury General Chief Complaint: Neck Pain/Injury Stated Complaint: pain in neck getting worse Time Seen by Provider: 08/24/21 10:13 Mode of arrival: Ambulatory Limitations: no limitations History of Present Illness HPI Narrative: The patient is a 35-year-old female who presents with worsening neck pain. She was seen and evaluated here a few days ago diagnosed with cervical radiculopathy she was given prescription for narcotic medication at home however she has not taken any. She has a history of previous opiate prescription abuse and is scared to take them at home at. Since 5:00 a.m. this morning she has had increased pain from her neck down into her chest shoulder she has numbness and tingling in her thumb and middle finger and burning sensation on her forearm. She says her right shoulder aches as well. She is adamant about any injury. She says it started last week has progressively gotten worse in the this morning is the worst it has ever been. No fever or chills. No significant weakness. Related Data Home Medications Medication Instructions Recorded Confirmed lamotrigine 25 mg tablet 25 mg PO QPM 12/06/19 12/06/19 norgestimate-ethinyl estradiol 1 tab PO QPM 12/06/19 12/06/19 0.18 mg/0.215mg/0.25mg-35 mcg(28)tablet (Ortho Tri-Cyclen (28)) trazodone 50 mg tablet 50 mg PO BEDTIME PRN 12/06/19 12/06/19 Previous Rx's Medication Instructions Recorded ciprofloxacin HCl 500 mg tablet 500 mg PO BID #28 tab 03/06/21 hydrocodone 5 mg-acetaminophen 325 1 tab PO Q6H PRN #10 tab 03/06/21 mg tablet ondansetron HCl 4 mg tablet 4 mg PO Q6H PRN #10 tab 03/06/21 (Zofran) hydrocodone 5 mg-acetaminophen 325 1 tab PO Q4-6H PRN #10 tab 03/09/21 mg tablet ondansetron 4 mg disintegrating 4 mg PO TID-QID PRN #10 tab 03/09/21 tablet lorazepam 0.5 mg tablet (Ativan) 0.5 mg PO BEDTIME PRN #7 tab 07/31/21 sumatriptan 20 mg/actuation nasal 20 mg INTRANASAL Q2H PRN #6 ea 10/30/21 spray (Imitrex) hydrocodone 5 mg-acetaminophen 325 1 tab PO Q6H PRN #10 tab 08/22/21 mg tablet prednisone 50 mg tablet 50 mg PO DAILY #5 tab 08/22/21 methocarbamol 750 mg tablet 1,500 mg PO Q8H PRN #14 tab 08/24/21 Allergies Allergy/AdvReac Type Severity Reaction Status Date / Time ketorolac [From Toradol] Allergy Rash Verified 08/24/21 10:32 prochlorperazine AdvReac Verified 08/24/21 10:32 [From Compazine] Review of Systems Review of Systems Narrative: GENERAL: Denies chills, fatigue, malaise, fever, sweats, travel HEENT: Denies sinus pain, ear pain, sore throat, difficulty swallowing, neck pain RESPIRATORY: Denies dyspnea, cough, wheezing, hemoptysis, sputum. CARDIOVASCULAR: Denies chest pain, palpitations, orthopnea, edema GASTROINTESTINAL: Denies nausea, vomiting, abdominal pain, diarrhea, constipation, melena. : Denies dysuria, frequency, incontinence, hematuria, urinary retention, flank pain. MUSCULOSKELETAL: See HPI SKIN: No rash, no erythema, no pruritus NEUROLOGIC: Denies weakness, dizziness, headache, numbness, change in speech, confusion PSYCHIATRIC: No concerning psychosocial issues. 12 point review of systems is negative except for those stated above and HPI Patient History Medical History Kidney stones Migraine Social History Smoking Status: Current every day smoker Smoking Status: Current every day smoker tobacco type: vaping alcohol intake frequency: holidays/special occasions only Substance Use Type: does not use Exam Initial Vital Signs Initial Vital Signs: Vital Signs Temperature 98.6 F 08/24/21 10:32 Pulse Rate 83 08/24/21 10:32 Respiratory Rate 20 08/24/21 10:32 Blood Pressure 129/89 08/24/21 10:32 Pulse Oximetry 98 08/24/21 10:32 GENERAL: Tearful 35-year-old female and in [no acute] distress. HEENT: Head atraumatic,EOMI, pupils reactive, face symmetric, [moist] mucous membranes NECK: Decreased range of motion, position of comfort is flexed and to the left. Significant pain when turning to right hand extended. 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 Sensation over the deltoid intact. CARDIOVASCULAR: Regular rate and rhythm without murmurs, rubs or gallops. RESPIRATORY: Breath sounds equal bilaterally, no wheezes rales or rhonchi. EXTREMITIES: Normal range of motion, no clubbing or edema. Neurovascularly intact NEUROLOGICAL: Alert and oriented x4.Normal gait and speech. Cranial nerves II through XII grossly intact. Neuropathy along left median nerve distribution. SKIN: Warm, dry, no laceration, no petechiae, no rashes or lesions. Course Orders Ordered: ED Orders 08/24/21 10:41 CT cervical spine wo con Stat Discontinued Medications Diazepam (Diazepam 5 Mg Tablet) 5 mg PO NOW ONE Stop: 08/24/21 10:42 Last Admin: 08/24/21 10:58 Dose: 5 mg Documented by: BERNARD Morphine Sulfate (Morphine 4 Mg/Ml Inj) 4 mg IM NOW ONE Stop: 08/24/21 10:42 Last Admin: 08/24/21 10:57 Dose: 4 mg Documented by: BERNARD Vital Signs Vital signs: Vital Signs - 8 hr 08/24/21 10:32 Temperature 98.6 F Pulse Rate 83 Respiratory Rate 20 Blood Pressure 129/89 Pulse Oximetry 98 MDM - Neck Pain/Injury Imaging Data CT - cervical spine: Radiologist's Impression: PROCEDURE:? CT CERVICAL SPINE WO CON ? INDICATIONS:? severe left sided pain no injury ? TECHNIQUE:? Noncontrast 3 mm thick sections acquired from the skull base to the T4 level.? Sagittal and coronal reformats were then constructed.? For radiation dose reduction, the following was used:? automated exposure control, adjustment of mA and/or kV according to patient size.? ? COMPARISON:? None. ? FINDINGS:? Image quality:? Excellent.? ? Bones:? No fractures or dislocations.? Visualized superior ribs are intact.? ? Reversal of the normal cervical lordosis is seen, with the apex at the C5-C6 level.? No focal AP alignment abnormality is seen.? At C5-C6, there is mild disc space narrowing, with associated endplate irregularity and sclerosis. ? Soft tissues:? Prevertebral soft tissues are normal in thickness.? No paravertebral hematomas.? No apical pneumothoraces.? Note is made of a partially calcified right thyroid nodule that measures up to 1.4 cm, as on series 3, image 54. ? ? IMPRESSION:? Focal C5-C6 degenerative change. ? Reversal of the normal cervical lordosis is seen. This is commonly observed in patients with muscular spasm.? ? Partially calcified right thyroid nodule incidentally noted. ? ? ? Dictated by: Parish Rosas M.D. on 08/24/2021 at 10:12 ? ? MDM Narrative Medical decision making narrative: Patient has muscle spasm significant restriction in range of motion. CT does confirm C5-C6 degenerative change and actually confirms a muscle spasm. The patient is feeling better after morphine and Valium. I have also tried some light stretching with her as well. Which is also seem to help. She says that she is not taking hydrocodone at home he does not trust herself she has actually thrown the mouth. She is doing well gabapentin prednisone Tylenol and Motrin. I will add some methocarbamol to see if that helps with spasm. At this time I do not see need for MRI. Discharge Plan Departure Patient Disposition: Home Clinical Impression: Muscle spasm Instructions: DI for Muscle Spasm Activity Restrictions/Additional Instructions: *You have been diagnosed with a cervical muscle spasm *What to do: Increase activity as tolerated. May try heating pad. Try to take neck into positions it does not like and hold for 3-5 seconds. This will help your muscles relax. *Continue to take medications as directed Methocarbamol 1500 mg every 8 hours if needed for severe muscle spasm, please be careful when taking this with hydrocodone SENT TO [facility] *Follow up with your primary care provider in 2-3 days *Return to ER if you should have increasing weakness numbness tingling, pain or any new, worsening or concerning symptoms Prescriptions: New methocarbamol 750 mg tablet 1,500 mg PO Q8H PRN (Reason: muscle spasm) Qty: 14 RF: 0 No Action trazodone 50 mg Tablet 50 mg PO BEDTIME PRN (Reason: Sleep) RF: 0 lamotrigine 25 mg Tablet 25 mg PO QPM RF: 0 norgestimate-ethinyl estradiol [Ortho Tri-Cyclen (28)] 0.18/0.215/0.25 mg-35 mcg (28) Tablet 1 tab PO QPM RF: 0 ciprofloxacin HCl 500 mg tablet 500 mg PO BID Qty: 28 RF: 0 ondansetron HCl [Zofran] 4 mg tablet 4 mg PO Q6H PRN (Reason: nausea and vomiting) Qty: 10 RF: 0 hydrocodone-acetaminophen 5-325 mg tablet 1 tab PO Q6H PRN (Reason: pain) Qty: 10 RF: 0 hydrocodone-acetaminophen 5-325 mg tablet 1 tab PO Q4-6H PRN (Reason: pain) Qty: 10 RF: 0 ondansetron 4 mg tablet,disintegrating 4 mg PO TID-QID PRN (Reason: nausea and vomiting) Qty: 10 RF: 0 lorazepam [Ativan] 0.5 mg tablet 0.5 mg PO BEDTIME PRN (Reason: anxiety) Qty: 7 RF: 0 sumatriptan [Imitrex] 20 mg/actuation spray,non-aerosol 20 mg intranasal Q2H PRN (Reason: migraine headache) Qty: 6 RF: 0 prednisone 50 mg tablet 50 mg PO DAILY Qty: 5 RF: 0 hydrocodone-acetaminophen 5-325 mg tablet 1 tab PO Q6H PRN (Reason: pain) Qty: 10 RF: 0 Referrals: Salbador Ludwig DO [Primary Care Provider] -
== END 2021-08-24 12:11 | disposition home or self-care (01) ==
PROVIDERS: Emergency Provider Emergency Medicine; Family Provider Family Medicine; PCP Family Medicine
DX: M62.838 Other muscle spasm (principal)
CPT/HCPCS: 72125; 96372; 99284; J2270

== ENCOUNTER 2021-08-28 13:32 | Emergency (ER) | payer OTHER, MEDICAID, SELFPAY ==
[2021-08-28 13:41] VITALS: BP 146/91; PULSE 77; RESP 18; TEMP 37.2; O2SAT 98
== END 2021-08-28 14:38 | disposition left against medical advice (07) ==
PROVIDERS: Emergency Provider Emergency Medicine; Family Provider Family Medicine; PCP Family Medicine
DX: M54.2 Cervicalgia (principal)
CPT/HCPCS: 99281

== ENCOUNTER 2021-08-29 14:53 | Emergency (ER) | payer BC, OTHER, MEDICAID, SELFPAY ==
[2021-08-29 14:58] VITALS: BP 142/91; PULSE 104; RESP 18; TEMP 37.2; O2SAT 97; BMI 25.0
--- NOTE | 2021-08-29 15:44 | ED_ITS ---
HPI - Back Pain/Injury <Schuyler Lockwood PA-C - Last Filed: 08/29/21 19:40> General Chief Complaint: Back Pain/Injury Stated Complaint: Left Sided Muscle Spasms, Back/Arm Time Seen by Provider: 08/29/21 15:05 Source: patient Limitations: no limitations History of Present Illness HPI Narrative: Patient is a 35-year-old female presenting to the emergency department today for evaluation of neck pain and muscle spasms. Patient states that she began to experience left-sided neck pain approximately 2 weeks ago and she explains that the pain has since radiated to left upper extremity. She notes associated muscle spasming in the left upper extremity with numbness and tingling experienced in the left hand. Of note, patient was seen in the emergency department for similar symptoms on 08/22/2021 and 08/24/2021. She was diagnosed with cervical radiculopathy on 08/22/2021 and diagnosed with muscle spasms on 08/24/2021. She has received prescriptions for prednisone, hydrocodone-acetaminophen, and methocarbamol for her symptoms. She notes that her pain has been improved when taking prednisone, hydrocodone-acetaminophen, gabapentin, and ibuprofen altogether, however she states that she has run out of her prednisone and hydrocodone-acetaminophen. Patient denies fever, chills, chest pain, shortness of breath, nausea, vomiting, diarrhea, abdominal pain, dysuria, headache. No known injury reported. No other concerns voiced at this time. Related Data Home Medications Medication Instructions Recorded Confirmed lamotrigine 25 mg tablet 25 mg PO QPM 12/06/19 12/06/19 norgestimate-ethinyl estradiol 1 tab PO QPM 12/06/19 12/06/19 0.18 mg/0.215mg/0.25mg-35 mcg(28)tablet (Ortho Tri-Cyclen (28)) trazodone 50 mg tablet 50 mg PO BEDTIME PRN 12/06/19 12/06/19 Previous Rx's Medication Instructions Recorded hydrocodone 5 mg-acetaminophen 325 1 tab PO Q6H PRN #10 tab 03/06/21 mg tablet ondansetron HCl 4 mg tablet 4 mg PO Q6H PRN #10 tab 03/06/21 (Zofran) hydrocodone 5 mg-acetaminophen 325 1 tab PO Q4-6H PRN #10 tab 03/09/21 mg tablet ondansetron 4 mg disintegrating 4 mg PO TID-QID PRN #10 tab 03/09/21 tablet lorazepam 0.5 mg tablet (Ativan) 0.5 mg PO BEDTIME PRN #7 tab 07/31/21 sumatriptan 20 mg/actuation nasal 20 mg INTRANASAL Q2H PRN #6 ea 08/17/21 spray (Imitrex) hydrocodone 5 mg-acetaminophen 325 1 tab PO Q6H PRN #10 tab 08/22/21 mg tablet prednisone 50 mg tablet 50 mg PO DAILY #5 tab 08/22/21 methocarbamol 750 mg tablet 1,500 mg PO Q8H PRN #14 tab 08/24/21 diazepam 5 mg tablet (Valium) 5 mg PO BID PRN #14 tab 08/29/21 hydrocodone 5 mg-acetaminophen 325 1 tab PO BID PRN #10 tab 08/29/21 mg tablet prednisone 50 mg tablet 50 mg PO DAILY #10 tab 08/29/21 Allergies Allergy/AdvReac Type Severity Reaction Status Date / Time ketorolac [From Toradol] Allergy Rash Verified 08/28/21 13:46 prochlorperazine AdvReac Verified 08/28/21 13:46 [From Compazine] Review of Systems <Schuyler Lockwood PA-C - Last Filed: 08/29/21 19:40> Constitutional Constitutional: Denies chills, Denies fever(s), Denies frequent falls, Denies lethargy and Denies weakness ENT Ears, Nose, Mouth, and Throat: Denies dizziness and Reports neck pain Cardiovascular Cardiovascular: Denies chest pain, Denies irregular heart rhythm, Denies lightheadedness, Denies palpitations, Denies dyspnea, Denies dyspnea on exertion and Denies orthopnea Respiratory Respiratory: Denies cough, Denies dyspnea, Denies dyspnea on exertion and Denies wheezing Gastrointestinal Gastrointestinal: Denies abdominal pain, Denies change in bowel habits, Denies diarrhea, Denies nausea and Denies vomiting Musculoskeletal Musculoskeletal: Reports neck pain, Reports numbness (Left upper extremity), Reports radiating pain into limb (Left upper extremity) and Reports other (Muscle spasm) Integumentary/Breasts Skin/Breast: Denies pruritus, Denies erythema, Denies rash and Denies wounds Neurologic Neurologic: Denies behavioral changes, Denies confusion, Denies dizziness, Denies frequent falls, Reports numbness (Left upper extremity) and Denies weakness Psychiatric Psychiatric: Denies behavioral changes and Denies confusion Endocrine Endocrine: Denies palpitations Allergic/Immunologic Allergic/Immunologic: Denies wheezing Patient History <Schuyler Lockwood PA-C - Last Filed: 08/29/21 19:40> Medical History Kidney stones Migraine Social History Smoking Status: Current every day smoker Smoking Status: Current every day smoker tobacco type: vaping alcohol intake frequency: holidays/special occasions only Substance Use Type: does not use Exam <Schuyler Lockwood PA-C - Last Filed: 08/29/21 19:40> Narrative Exam Narrative: GENERAL: 35 year old patient appears stated age. Well-developed patient, in mild distress. HEAD: Atraumatic. Normocephalic. EYES: Pupils equal round and reactive. Extraocular motions intact. No scleral icterus. No injection or drainage. ENT: Nose without bleeding, purulent drainage. Throat without erythema, tonsillar hypertrophy or exudate. Airway patent. NECK: Trachea midline. Tenderness to palpation appreciated over the left sternocleidomastoid. Patient has difficulty turning head left to right due to pain. CARDIOVASCULAR: Regular rate and rhythm without murmurs, gallops, or rubs. RESPIRATORY: Clear to auscultation. Breath sounds equal bilaterally. No wheezes, rales, or rhonchi. GASTROINTESTINAL: Abdomen soft, non-tender, nondistended. EXTREMITIES: No edema. Tenderness to palpation appreciated throughout the left upper extremity, notably the lateral aspect of the proximal left forearm and the left axilla. BACK: Nontender without deformity or crepitance. No flank tenderness. NEURO: AOx3. SKIN: No rash or erythema of visible areas Initial Vital Signs Initial Vital Signs: Vital Signs Temperature 99.0 F 08/29/21 14:58 Pulse Rate 104 H 08/29/21 14:58 Respiratory Rate 18 08/29/21 14:58 Blood Pressure 142/91 H 08/29/21 14:58 Pulse Oximetry 97 08/29/21 14:58 <DO Maikol Jorge Last Filed: 08/31/21 18:56> Initial Vital Signs Initial Vital Signs: Vital Signs Temperature 99.0 F 08/29/21 14:58 Pulse Rate 104 H 08/29/21 14:58 Respiratory Rate 18 08/29/21 14:58 Blood Pressure 142/91 H 08/29/21 14:58 Pulse Oximetry 97 08/29/21 14:58 Course <Schuyler Lockwood PA-C - Last Filed: 08/29/21 19:40> Course Course Narrative: PO prednisone and IM morphine administered. Orders Ordered: Discontinued Medications Morphine Sulfate (Morphine 4 Mg/Ml Inj) 4 mg IM NOW ONE Stop: 08/29/21 15:50 Last Admin: 08/29/21 16:04 Dose: 4 mg Documented by: IFEOMA Prednisone (Prednisone 20 Mg Tablet) 40 mg PO NOW ONE Stop: 08/29/21 15:50 Last Admin: 08/29/21 16:02 Dose: 40 mg Documented by: IFEOMA Reevaluation(s) Reevaluation #1: Patient states she is feeling better after PO prednisone and IM morphine. Time: 16:34 Vital Signs Vital signs: Vital Signs - 8 hr 08/29/21 14:58 08/29/21 17:10 Temperature 99.0 F Pulse Rate 104 H 87 Respiratory Rate 18 Blood Pressure 142/91 H 130/77 Pulse Oximetry 97 100 <Mary Ellen Xiao DO - Last Filed: 08/31/21 18:56> Orders Ordered: Discontinued Medications Morphine Sulfate (Morphine 4 Mg/Ml Inj) 4 mg IM NOW ONE Stop: 08/29/21 15:50 Last Admin: 08/29/21 16:04 Dose: 4 mg Documented by: IFEOMA Prednisone (Prednisone 20 Mg Tablet) 40 mg PO NOW ONE Stop: 08/29/21 15:50 Last Admin: 08/29/21 16:02 Dose: 40 mg Documented by: IFEOMA Vital Signs Vital signs: Vital Signs - 8 hr 08/29/21 14:58 08/29/21 17:10 Temperature 99.0 F Pulse Rate 104 H 87 Respiratory Rate 18 Blood Pressure 142/91 H 130/77 Pulse Oximetry 97 100 MDM - Back Pain/Injury <Schuyler Lockwood PA-C - Last Filed: 08/29/21 19:40> MDM Narrative Medical decision making narrative: Patient is a 35-year-old female presenting to the emergency department today for evaluation of neck pain and muscle spasms. To consider exacerbated cervical radiculopathy versus muscle spasm. Cervical spine CT obtained on 08/24/2021 showed C5-C6 degenerative changes and evidence of muscle spasm. Patient's pain has improved in the emergency department after p.o. prednisone and IM morphine. Discussed with the patient the plan to change her pain management regimen, and she agrees. Discussed strict return precautions with the patient prior to discharge. Advised patient to contact [facility]. Discharge Plan Departure Patient Disposition: Home Clinical Impression: Cervical radiculopathy, Muscle spasm Instructions: DI for Muscle Spasm Activity Restrictions/Additional Instructions: *You have been diagnosed with cervical radiculopathy, muscle spasm *What to do: *Please continue to take your regular medications as directed. [X] New medication prescriptions sent to your pharmacy: [facility] [place] - Valium (Diazepam), Hydrocodone-acetaminophen, prednisone [ ] New medication written as a paper prescription [ ] No new medications given *Please follow up with your primary care provider in 2-3 days, call for an appointment. Let them know you were seen in the Emergency Department and that we ask that you be seen in follow up. We will electronically transmit a record of today's note if your PCP is in our system *If you do not have a primary care provider please contact the [facility] Resource line at [phone]. They will ask some questions about your medical history and help get you set up with a doctor in the community. *Return to Emergency Department if you should have any new, worsening or concerning symptoms, such as fever greater than 101 F, shaking chills, worsening pain, persistent vomiting or other bothersome symptoms. Prescriptions: New prednisone 50 mg tablet 50 mg PO DAILY Qty: 10 RF: 0 diazepam [Valium] 5 mg tablet 5 mg PO BID PRN (Reason: muscle spasm) Qty: 14 RF: 0 hydrocodone-acetaminophen 5-325 mg tablet 1 tab PO BID PRN (Reason: pain) Qty: 10 RF: 0 No Action trazodone 50 mg Tablet 50 mg PO BEDTIME PRN (Reason: Sleep) RF: 0 lamotrigine 25 mg Tablet 25 mg PO QPM RF: 0 norgestimate-ethinyl estradiol [Ortho Tri-Cyclen (28)] 0.18/0.215/0.25 mg-35 mcg (28) Tablet 1 tab PO QPM RF: 0 ondansetron HCl [Zofran] 4 mg tablet 4 mg PO Q6H PRN (Reason: nausea and vomiting) Qty: 10 RF: 0 hydrocodone-acetaminophen 5-325 mg tablet 1 tab PO Q6H PRN (Reason: pain) Qty: 10 RF: 0 hydrocodone-acetaminophen 5-325 mg tablet 1 tab PO Q4-6H PRN (Reason: pain) Qty: 10 RF: 0 ondansetron 4 mg tablet,disintegrating 4 mg PO TID-QID PRN (Reason: nausea and vomiting) Qty: 10 RF: 0 lorazepam [Ativan] 0.5 mg tablet 0.5 mg PO BEDTIME PRN (Reason: anxiety) Qty: 7 RF: 0 sumatriptan [Imitrex] 20 mg/actuation spray,non-aerosol 20 mg intranasal Q2H PRN (Reason: migraine headache) Qty: 6 RF: 0 prednisone 50 mg tablet 50 mg PO DAILY Qty: 5 RF: 0 hydrocodone-acetaminophen 5-325 mg tablet 1 tab PO Q6H PRN (Reason: pain) Qty: 10 RF: 0 methocarbamol 750 mg tablet 1,500 mg PO Q8H PRN (Reason: muscle spasm) Qty: 14 RF: 0 Referrals: Schuyler Lockwood PA-C [Emergency Provider] - Lionel Cardoso MD [Physician] - As soon as possible <Mary Ellen Xiao DO - Last Filed: 08/31/21 18:56> [facility] ED Attending Anahyature Attestation: I was immediately available in the department for consultation. Documentation has been reviewed. I agree with assessment and plan.
[2021-08-29] MEDS: predniSONE 20 MG TABLET 40 MG PO (16:02)
[2021-08-29] MEDS: MORPHINE 4 MG/ML INJ IM (16:04)
[2021-08-29 17:10] VITALS: BP 130/77; PULSE 87; O2SAT 100
== END 2021-08-29 17:11 | disposition home or self-care (01) ==
PROVIDERS: Emergency Provider Physician Assistant; Family Provider Family Medicine
DX: M54.12 Radiculopathy, cervical region (principal); M62.838 Other muscle spasm
CPT/HCPCS: 96372; 99283; J2270

== ENCOUNTER 2021-09-05 18:36 | Emergency (ER) | payer BC, OTHER, MEDICAID, SELFPAY ==
[2021-09-05 19:12] VITALS: BP 148/91; PULSE 99; RESP 17; TEMP 36.9; O2SAT 99; BMI 25.0
--- NOTE | 2021-09-05 22:23 | ED.NECK ---
HPI - Neck Pain/Injury General Chief Complaint: Neck Pain/Injury Stated Complaint: Neck Pain Time Seen by Provider: 09/05/21 22:23 Mode of arrival: Ambulatory History of Present Illness HPI Narrative: 35-year-old female daily smoker returns for evaluation of ongoing left-sided neck pain. She denies any specific injury but states she has been having increasing pain on the left side of her neck with radiation down her left arm with numbness and tingling in the absence of weakness. She has had no fever or chills. She has had multiple visits and receives short courses of a therapies including steroids, muscle relaxers, anti-inflammatories and opioids. She has brief episodes of relief but returned because of lack of access to longer prescriptions and delayed follow-up appointments. She has had no fever or chills. Related Data Home Medications Medication Instructions Recorded Confirmed lamotrigine 25 mg tablet 25 mg PO BID 12/06/19 09/05/21 norgestimate-ethinyl estradiol 1 tab PO QPM 12/06/19 09/05/21 0.18 mg/0.215mg/0.25mg-35 mcg(28)tablet (Ortho Tri-Cyclen (28)) trazodone 50 mg tablet 150 mg PO BEDTIME PRN 12/06/19 09/05/21 Previous Rx's Medication Instructions Recorded ondansetron HCl 4 mg tablet 4 mg PO Q6H PRN #10 tab 03/06/21 (Zofran) ondansetron 4 mg disintegrating 4 mg PO TID-QID PRN #10 tab 03/09/21 tablet sumatriptan 20 mg/actuation nasal 20 mg INTRANASAL Q2H PRN #6 ea 08/17/21 spray (Imitrex) cyclobenzaprine 10 mg tablet 10 mg PO BID PRN #28 tab 09/03/21 diclofenac sodium 1 % topical gel 2 g TOPICAL QID #100 g 09/03/21 methylprednisolone 4 mg tablets in See Rx Instructions .ROUTE 09/05/21 a dose pack (Medrol (Haider)) .COMPLEX #21 ea Allergies Allergy/AdvReac Type Severity Reaction Status Date / Time ketorolac [From Toradol] Allergy Rash Verified 09/05/21 19:15 prochlorperazine AdvReac Verified 08/28/21 13:46 [From Compazine] Review of Systems Review of Systems Narrative: GENERAL: Denies chills, fatigue, malaise, fever, sweats. HEENT: Denies sinus pain, ear pain, sore throat, difficulty swallowing, dizziness. RESPIRATORY: Denies dyspnea, cough, wheezing, hemoptysis, sputum. CARDIOVASCULAR: Denies chest pain, palpitations, orthopnea, edema, GASTROINTESTINAL: Denies nausea, vomiting, abdominal pain, diarrhea, constipation, melena. : Denies dysuria, frequency, incontinence, hematuria, urinary retention. MUSCULOSKELETAL: See HPI SKIN: Denies rash, skin lesions, or other NEUROLOGIC: See HPI PSYCHIATRIC: No concerning psychosocial issues. 12 point review of systems is negative except for those stated above Patient History Medical History Kidney stones Migraine Social History Smoking Status: Current every day smoker Smoking Status: Current every day smoker tobacco type: vaping alcohol intake frequency: holidays/special occasions only Substance Use Type: does not use Exam Narrative Exam Narrative: GEN: AOx3 and in mild distress EYES: Pupils are equal, round, and reactive to light and accommodation. Extraoccular muscles are intact bilaterally. There is no subconjunctival hemorrhage or exudate. NECK: Left-sided paraspinal spasm, worsening with axial load, pain radiates down left arm, no measurable weakness CHEST: Lungs are clear to auscultation bilaterally and free of wheezes, rales, or rhonchi. Heart rate is regular rhythm, there are no murmurs, clicks, rubs, or gallops. There is no chest wall tenderness. ABD: Abdomen is soft and nontender. There is no guarding or rebound. Bowel sounds are normal in all 4 quadrants. There is no mass or organomegaly. EXT: Full painless ROM of all extremities with no loss of sensation or strength. SKIN: Warm, pink, and dry. No erythema or rash Initial Vital Signs Initial Vital Signs: Vital Signs Temperature 98.4 F 09/05/21 19:12 Pulse Rate 99 H 09/05/21 19:12 Respiratory Rate 17 09/05/21 19:12 Blood Pressure 148/91 H 09/05/21 19:12 Pulse Oximetry 99 09/05/21 19:12 Course Orders Ordered: Discontinued Medications Hydrocodone Bitart/Acetaminophen (Hydrocodone/Acet 5/325 Prepack) 1 bottle MISC SEEINSTR ONE Stop: 09/05/21 22:44 Last Admin: 09/05/21 22:54 Dose: 1 bottle Documented by: SIMONE Vital Signs Vital signs: Vital Signs - 8 hr 09/05/21 23:06 Pulse Rate 75 Respiratory Rate 16 Blood Pressure 138/96 H Pulse Oximetry 97 MDM - Neck Pain/Injury MDM Narrative Medical decision making narrative: Patient with chronic cervical radiculopathy and difficulty in following up. I had a lengthy discussion with her about lack of current neuro surgical emergent findings and continue to impress upon her the importance of follow-up. I discussed the findings on her prescription monitoring she which noted 25 prescriptions from 18 providers in the last year. She understands that we cannot refill opioids moving forward. She has been given return precautions and questions have been answered to her apparent satisfaction Discharge Plan Departure Patient Disposition: Home Clinical Impression: Cervical radiculopathy Instructions: Chronic Neck Pain Activity Restrictions/Additional Instructions: *You have been diagnosed with [neck and arm pain most consistent with cervical radiculopathy *What to do: *Please continue to take your regular medications as directed. [ x] New medication prescriptions sent to your pharmacy: [[facility] ] [ ] New medication written as a paper prescription [ ] No new medications given *Please follow up with your primary care provider in 2-3 days, call for an appointment. Let them know you were seen in the Emergency Department and that we ask that you be seen in follow up. We will electronically transmit a record of today's note if your PCP is in our system *If you would like to try to establish with a primary care provider here at [facility] please call [phone] * I have also included contact information for Dr. Larsen who may be able to help with your symptoms *Return to Emergency Department if you should have any new, worsening or concerning symptoms, such as [fever greater than 101 F, shaking chills, worsening pain, persistent vomiting or other bothersome symptoms] Prescriptions: New methylprednisolone [Medrol (Haider)] 4 mg tablets,dose pack See Rx Instructions .ROUTE .COMPLEX Qty: 21 0RF Rx Instructions: orally per package directions No Action cyclobenzaprine 10 mg tablet 10 mg PO BID PRN (Reason: muscle spasm) Qty: 28 0RF Rx Instructions: may make drowsy, do not drive during therapy diclofenac sodium 1 % gel 2 g topical QID Qty: 100 0RF Rx Instructions: apply to neck area. Do not use with other NSAIDs trazodone 50 mg Tablet 150 mg PO BEDTIME PRN (Reason: Sleep) 0RF lamotrigine 25 mg Tablet 25 mg PO BID 0RF norgestimate-ethinyl estradiol [Ortho Tri-Cyclen (28)] 0.18/0.215/0.25 mg-35 mcg (28) Tablet 1 tab PO QPM 0RF ondansetron HCl [Zofran] 4 mg tablet 4 mg PO Q6H PRN (Reason: nausea and vomiting) Qty: 10 0RF ondansetron 4 mg tablet,disintegrating 4 mg PO TID-QID PRN (Reason: nausea and vomiting) Qty: 10 0RF sumatriptan [Imitrex] 20 mg/actuation spray,non-aerosol 20 mg intranasal Q2H PRN (Reason: migraine headache) Qty: 6 0RF Rx Instructions: administer into one nostril as a single dose; if 2nd dose needed,administer into other nostril after at least 2 hrs, NTE 2 doses (40 mg) per episode Referrals: Michael Larsen DO [Physician] - Lionel Cardoso MD [Physician] - Miscellaneous,MD Jammie [Primary Care Provider] -
[2021-09-05] MEDS: HYDROCODONE/ACET 5/325 PREPACK 1 BOTTLE MISC (22:54)
[2021-09-05 23:06] VITALS: BP 138/96; PULSE 75; RESP 16; O2SAT 97
== END 2021-09-05 23:07 | disposition home or self-care (01) ==
PROVIDERS: Emergency Provider Emergency Medicine; Family Provider Family Medicine
DX: M54.12 Radiculopathy, cervical region (principal)
CPT/HCPCS: 99281; 99282

== ENCOUNTER 2021-09-22 12:59 | Emergency (ER) | payer BC, OTHER, MEDICAID, SELFPAY ==
[2021-09-22 13:06] VITALS: BP 141/80; PULSE 88; RESP 18; TEMP 37.1; O2SAT 98; BMI 25.0
== END 2021-09-22 14:06 | disposition left against medical advice (07) ==
PROVIDERS: Emergency Provider Emergency Medicine; Family Provider Family Medicine
DX: Z53.21 Procedure and treatment not carried out due to patient leaving prior to being seen by health care provider (principal)
CPT/HCPCS: 99281

== ENCOUNTER 2021-09-24 11:03 | Emergency (ER) | payer BC, OTHER, MEDICAID, SELFPAY ==
[2021-09-24 11:43] VITALS: BP 129/88; PULSE 82; RESP 16; TEMP 36.9; O2SAT 99; BMI 25.0
[2021-09-24] MEDS: CYCLOBENZAPRINE 10 MG TABLET PO (13:35)
[2021-09-24] MEDS: OXYCODONE/ACETAMINOPHEN 5/325 TABLET 1 TAB PO (13:35)
[2021-09-24 13:41] VITALS: BP 128/79; PULSE 66; RESP 16; O2SAT 98
--- NOTE | 2021-09-24 14:32 | ED.NECK ---
HPI - Neck Pain/Injury <Franklin Craven PA-C - Last Filed: 09/24/21 14:39> General Chief Complaint: Neck Pain/Injury Stated Complaint: Neck pain/migraine x2days Time Seen by Provider: 09/24/21 11:52 Mode of arrival: Ambulatory History of Present Illness HPI Narrative: 36-year-old female with past medical history in neck pain, migraines presents to the ED with left-sided neck pain. Patient was seen in the ED on 09/05/2021 for the same complaint, has been seen in the ED several times for the same complaint. Patient has had a CT done in the past with degenerative changes in C5-C6. Patient states that she is waiting for a prior Auth for physical therapy, however in the meanwhile her neck pain worsened which brought her to the ED. patient endorses that she is able to range her neck, however it causes her pain when she does that. Patient states that she is able to range her arms. Patient endorses intermittent numbness, tingling. Patient denies weakness. Patient states that she saw her PA who is her PCP, who is trying to obtain prior authorization for physical therapy. Patient unable to see an ortho specialist until the new year due to her health insurance. Related Data Home Medications Medication Instructions Recorded Confirmed lamotrigine 25 mg tablet 25 mg PO BID 12/06/19 09/05/21 norgestimate-ethinyl estradiol 1 tab PO QPM 12/06/19 09/05/21 0.18 mg/0.215mg/0.25mg-35 mcg(28)tablet (Ortho Tri-Cyclen (28)) trazodone 50 mg tablet 150 mg PO BEDTIME PRN 12/06/19 09/05/21 Previous Rx's Medication Instructions Recorded ondansetron HCl 4 mg tablet 4 mg PO Q6H PRN #10 tab 03/06/21 (Zofran) ondansetron 4 mg disintegrating 4 mg PO TID-QID PRN #10 tab 03/09/21 tablet sumatriptan 20 mg/actuation nasal 20 mg INTRANASAL Q2H PRN #6 ea 08/17/21 spray (Imitrex) cyclobenzaprine 10 mg tablet 10 mg PO BID PRN #28 tab 09/03/21 diclofenac sodium 1 % topical gel 2 g TOPICAL QID #100 g 09/03/21 methylprednisolone 4 mg tablets in See Rx Instructions .ROUTE 09/05/21 a dose pack (Medrol (Haider)) .COMPLEX #21 ea methylprednisolone 4 mg tablets in 4 mg PO DAILY #21 ea 09/24/21 a dose pack (Medrol (Haider)) Allergies Allergy/AdvReac Type Severity Reaction Status Date / Time ketorolac [From Toradol] Allergy Rash Verified 09/24/21 11:47 prochlorperazine AdvReac Verified 09/24/21 11:47 [From Compazine] Review of Systems <Franklin Craven PA-C - Last Filed: 09/24/21 14:39> Review of Systems ROS Unobtainable: All systems reviewed & are unremarkable except as noted in HPI and below Constitutional Constitutional: Denies chills, Denies fatigue, Denies fever(s), Denies frequent falls, Denies lethargy and Denies weakness Eyes Eyes: Denies change in vision, Denies eye discharge, Denies irritation and Denies loss of vision ENT Ears, Nose, Mouth, and Throat: Denies change in voice, Denies dizziness, Reports neck pain, Denies sore throat and Denies throat swelling Cardiovascular Cardiovascular: Denies chest pain, Denies irregular heart rhythm, Denies lightheadedness, Denies palpitations, Denies dyspnea, Denies dyspnea on exertion and Denies orthopnea Respiratory Respiratory: Denies cough, Denies dyspnea, Denies dyspnea on exertion and Denies wheezing Gastrointestinal Gastrointestinal: Denies abdominal pain, Denies change in bowel habits, Denies diarrhea, Denies nausea and Denies vomiting Genitourinary Genitourinary: Denies hematuria, Denies flank pain, Denies urinary incontinence and Denies urinary urgency Musculoskeletal Musculoskeletal: Denies back pain, Denies muscle weakness, Reports neck pain, Reports numbness and Reports tingling Integumentary/Breasts Skin/Breast: Denies pruritus, Denies erythema, Denies rash and Denies wounds Neurologic Neurologic: Denies behavioral changes, Denies confusion, Denies dizziness, Denies frequent falls, Denies loss of vision, Reports numbness, Reports tingling and Denies weakness Psychiatric Psychiatric: Denies anxiety, Denies behavioral changes, Denies confusion, Denies depression, Denies homicidal ideation and Denies suicidal ideation Endocrine Endocrine: Denies fatigue, Denies flushing and Denies palpitations Hematologic/Lymphatic Hematologic/Lymphatic: Denies easy bruising Allergic/Immunologic Allergic/Immunologic: Denies urticaria, Denies throat swelling and Denies wheezing Patient History <Franklin Craven PA-C - Last Filed: 09/24/21 14:39> Medical History Kidney stones Migraine Social History Smoking Status: Current every day smoker Smoking Status: Current every day smoker tobacco type: vaping alcohol intake frequency: other Substance Use Type: does not use Exam <Franklin Craven PA-C - Last Filed: 09/24/21 14:39> Initial Vital Signs Initial Vital Signs: Vital Signs Temperature 98.4 F 09/24/21 11:43 Pulse Rate 82 09/24/21 11:43 Respiratory Rate 16 09/24/21 11:43 Blood Pressure 129/88 09/24/21 11:43 Pulse Oximetry 99 09/24/21 11:43 Const General: cooperative, healthy appearing and comfortable [facility] Head: normal to inspection Eyes General: appearance normal, both eyes and all related structures Neck Neck: normal visual inspection and no meningeal signs Other: Left-sided paraspinal muscle spasm. Patient has full range of motion of neck, however ranging the neck elicits pain. Axial loading elicits pain in the left. No midline tenderness to palpation. has full range of motion of left and right arms. Strength and sensation is intact. Patient is neurovascularly intact. Resp Effort & Inspection: normal respiratory effort Auscultation: clear to auscultation bilaterally Cardio Rate: regular rate Rhythm: regular rhythm Back/Spine/Pelvis Back: normal to inspection Other: No midline tenderness to palpation Skin General: no rashes or lesions noted Neuro General: patient alert, patient awake and patient oriented x3 Extrem General: normal to inspection <Kamilla Malcolm DO - Last Filed: 09/25/21 08:05> Initial Vital Signs Initial Vital Signs: Vital Signs Temperature 98.4 F 09/24/21 11:43 Pulse Rate 82 09/24/21 11:43 Respiratory Rate 16 09/24/21 11:43 Blood Pressure 129/88 09/24/21 11:43 Pulse Oximetry 99 09/24/21 11:43 Course <Franklin Craven PA-C - Last Filed: 09/24/21 14:39> Orders Ordered: Discontinued Medications Cyclobenzaprine HCl (Cyclobenzaprine 10 Mg Tablet) 10 mg PO NOW ONE Stop: 09/24/21 13:23 Last Admin: 09/24/21 13:35 Dose: 10 mg Documented by: RYAN Oxycodone/Acetaminophen (Oxycodone/Acetaminophen 5/325 Tablet) 1 tab PO NOW ONE Stop: 09/24/21 13:23 Last Admin: 09/24/21 13:35 Dose: 1 tab Documented by: RYAN Vital Signs Vital signs: Vital Signs - 8 hr 09/24/21 11:43 09/24/21 13:41 Temperature 98.4 F Pulse Rate 82 66 Respiratory Rate 16 16 Blood Pressure 129/88 128/79 Pulse Oximetry 99 98 <Kamilla Malcolm DO - Last Filed: 09/25/21 08:05> Orders Ordered: Discontinued Medications Cyclobenzaprine HCl (Cyclobenzaprine 10 Mg Tablet) 10 mg PO NOW ONE Stop: 09/24/21 13:23 Last Admin: 09/24/21 13:35 Dose: 10 mg Documented by: RYAN Oxycodone/Acetaminophen (Oxycodone/Acetaminophen 5/325 Tablet) 1 tab PO NOW ONE Stop: 09/24/21 13:23 Last Admin: 09/24/21 13:35 Dose: 1 tab Documented by: RYAN Vital Signs Vital signs: Vital Signs - 8 hr 09/24/21 11:43 09/24/21 13:41 Temperature 98.4 F Pulse Rate 82 66 Respiratory Rate 16 16 Blood Pressure 129/88 128/79 Pulse Oximetry 99 98 MDM - Neck Pain/Injury <Franklin Craven PA-C - Last Filed: 09/24/21 14:39> MDM Narrative Medical decision making narrative: 36-year-old female with past medical history in neck pain, migraines presents to the ED with left-sided neck pain. Neuro exam is reassuring. Patient is neurovascularly intact, with no neurological deficits. Will treat patient's pain with Percocet and Flexeril. Patient is requesting a Medrol Haider. ED return precautions discussed with patient. Patient to follow-up with physical therapy. Patient verbalized understanding. Discharge Plan Departure Patient Disposition: Home Clinical Impression: Acute neck pain Instructions: DI for Neck Pain Activity Restrictions/Additional Instructions: You were evaluated for neck pain in the ED today. Your physical exam was very reassuring. Your neck pain is likely due to a muscle spasm. You may continue to take ibuprofen or Tylenol for the pain. Please follow-up with your PCP for a referral to physical therapy [place]. Return to the ED if you have worsening symptoms, numbness, weakness, tingling Prescriptions: New methylprednisolone [Medrol (Haider)] 4 mg tablets,dose pack 4 mg PO DAILY Qty: 21 0RF No Action cyclobenzaprine 10 mg tablet 10 mg PO BID PRN (Reason: muscle spasm) Qty: 28 0RF Rx Instructions: may make drowsy, do not drive during therapy diclofenac sodium 1 % gel 2 g topical QID Qty: 100 0RF Rx Instructions: apply to neck area. Do not use with other NSAIDs trazodone 50 mg Tablet 150 mg PO BEDTIME PRN (Reason: Sleep) 0RF lamotrigine 25 mg Tablet 25 mg PO BID 0RF norgestimate-ethinyl estradiol [Ortho Tri-Cyclen (28)] 0.18/0.215/0.25 mg-35 mcg (28) Tablet 1 tab PO QPM 0RF ondansetron HCl [Zofran] 4 mg tablet 4 mg PO Q6H PRN (Reason: nausea and vomiting) Qty: 10 0RF ondansetron 4 mg tablet,disintegrating 4 mg PO TID-QID PRN (Reason: nausea and vomiting) Qty: 10 0RF sumatriptan [Imitrex] 20 mg/actuation spray,non-aerosol 20 mg intranasal Q2H PRN (Reason: migraine headache) Qty: 6 0RF Rx Instructions: administer into one nostril as a single dose; if 2nd dose needed,administer into other nostril after at least 2 hrs, NTE 2 doses (40 mg) per episode methylprednisolone [Medrol (Haider)] 4 mg tablets,dose pack See Rx Instructions .ROUTE .COMPLEX Qty: 21 0RF Rx Instructions: orally per package directions Referrals: Miscellaneous,Doctor, [Primary Care Provider] - <Kamilla Malcolm DO - Last Filed: 09/25/21 08:05> Cosign ED Attending Cosarturoature Attestation: I was immediately available in the department for consultation. Documentation has been reviewed.
== END 2021-09-24 13:44 | disposition home or self-care (01) ==
PROVIDERS: Emergency Provider Student in an Organized Health Care Education/Training Program; Family Provider Family Medicine
DX: M54.2 Cervicalgia (principal)
CPT/HCPCS: 99283

== ENCOUNTER 2021-10-20 14:43 | Emergency (ER) | payer BC, OTHER, MEDICAID, SELFPAY ==
[2021-10-20 14:46] VITALS: BP 138/75; PULSE 89; RESP 18; TEMP 37; O2SAT 99
[2021-10-20 15:15] LABS: Add Manual Diff / Slide Review NO; Basophils Absolute Auto 0 /uL (0-100); Basophils Percent Auto 0.5 % (0-2); Eosinophils Absolute Auto 0 /uL (0-450); Eosinophils Percent Auto 0.5 % (2-4); Hematocrit 35.3 % (36-46); Hemoglobin 11.9 g/dL (12.0-16.0); Lymphocytes Absolute Auto 1400 /uL (1100-4500); Lymphocytes Percent Auto 15.1 % (25-40); Mean Corpuscular HGB Conc 33.7 % (30-36); Mean Corpuscular Hemoglobin 31.1 PG (26-34); Mean Corpuscular Volume 92.3 fL (80-100); Monocytes Absolute Auto 400 /uL (0-900); Monocytes Percent Auto 4.5 % (3-14); Neutrophils Absolute Auto 7400 /uL (1500-7000); Neutrophils Percent Auto 79.4 % (50-75); Platelet Count 323 X10^3/uL (150-400); Red Blood Cell Count 3.82 X10^6/uL (4.0-5.2); Red Cell Distribution Width 14.8 % (11.6-14.8); White Blood Cell Count 9.4 X10^3/uL (4.5-11.0)
[2021-10-20 15:20] LABS: Alanine Aminotransferase 16 IU/L (<35); Albumin 4.6 g/dL (3.5-5.0); Albumin Globulin Ratio 1.4 (1.0-2.8); Alkaline Phosphatase 70 U/L (38-126); Aspartate Aminotransferase 26 IU/L (14-36); BUN Creatinine Ratio 13.2 (6-22); Bilirubin Total 0.4 mg/dL (0.2-1.3); Blood Urea Nitrogen 12 mg/dL (7-17); Calcium 9.5 mg/dL (8.4-10.2); Carbon Dioxide 27 mmol/L (22-32); Chloride 103 mmol/L (98-107); Estimated Glomerular Filt Rate > 60.0 mL/min (>60); Globulin 3.2 g/dL (1.7-4.1); Glucose 93 mg/dL (70-100); HEMOLYSIS < 15 (0-50); Lipase 115 U/L (23-300); Potassium 4.3 mmol/L (3.4-5.1); Sodium 137 mmol/L (137-145); Total Protein 7.8 g/dL (6.3-8.2)
--- NOTE | 2021-10-20 16:00 | ED_ITS ---
HPI - Female Genitourinary General Chief complaint: Abdominal Pain Stated complaint: bladder infection maybe kidney too Time Seen by Provider: 10/20/21 15:51 Source: patient Mode of arrival: Ambulatory History of Present Illness HPI Narrative: Patient is a 36-year-old female who with history of bipolar, frequent kidney and UTI infections is presenting today with right flank pain and painful frequent urination. She states this feels like prior kidney infections. She denies any fever or chills but she is having some pain in her right lower quadrant and right flank. She has a prior history of an appendectomy. She states that her last infection required multiple changes in antibiotics, all these were done at [facility]. She says she was feeling achy yesterday with some mild pain, however this morning she had increased pain and painful urination. Related Data Home Medications Medication Instructions Recorded Confirmed lamotrigine 25 mg tablet 25 mg PO BID 12/06/19 09/05/21 norgestimate-ethinyl estradiol 1 tab PO QPM 12/06/19 09/05/21 0.18 mg/0.215mg/0.25mg-35 mcg(28)tablet (Ortho Tri-Cyclen (28)) trazodone 50 mg tablet 150 mg PO BEDTIME PRN 12/06/19 09/05/21 Previous Rx's Medication Instructions Recorded ondansetron HCl 4 mg tablet 4 mg PO Q6H PRN #10 tab 03/06/21 (Zofran) ondansetron 4 mg disintegrating 4 mg PO TID-QID PRN #10 tab 03/09/21 tablet sumatriptan 20 mg/actuation nasal 20 mg INTRANASAL Q2H PRN #6 ea 08/17/21 spray (Imitrex) cyclobenzaprine 10 mg tablet 10 mg PO BID PRN #28 tab 09/03/21 diclofenac sodium 1 % topical gel 2 g TOPICAL QID #100 g 09/03/21 methylprednisolone 4 mg tablets in See Rx Instructions .ROUTE 09/05/21 a dose pack (Medrol (Haider)) .COMPLEX #21 ea methylprednisolone 4 mg tablets in 4 mg PO DAILY #21 ea 09/24/21 a dose pack (Medrol (Haider)) cephalexin 500 mg capsule 500 mg PO BID 7 Days #14 cap 10/20/21 phenazopyridine 200 mg tablet 200 mg PO TID PRN #6 tab 10/20/21 (Pyridium) Allergies Allergy/AdvReac Type Severity Reaction Status Date / Time ketorolac [From Toradol] Allergy Rash Verified 09/24/21 11:47 prochlorperazine AdvReac Verified 09/24/21 11:47 [From Compazine] Review of Systems Review of Systems Narrative: GENERAL: Denies chills, fatigue, malaise, fever, sweats, travel HEENT: Denies sinus pain, ear pain, sore throat, difficulty swallowing, neck pain RESPIRATORY: Denies dyspnea, cough, wheezing, hemoptysis, sputum. CARDIOVASCULAR: Denies chest pain, palpitations, orthopnea, edema GASTROINTESTINAL: Denies nausea, vomiting, abdominal pain, diarrhea, constipation, melena. : see HPI MUSCULOSKELETAL: Denies weakness, joint pain, or bony pain SKIN: No rash, no erythema, no pruritus NEUROLOGIC: Denies weakness, dizziness, headache, numbness, change in speech, confusion PSYCHIATRIC: No concerning psychosocial issues. 12 point review of systems is negative except for those stated above and HPI Patient History Medical History Kidney stones Migraine tobacco type: vaping alcohol intake frequency: other Substance Use Type: does not use Exam Initial Vital Signs Initial Vital Signs: Vital Signs Temperature 98.6 F 10/20/21 14:46 Pulse Rate 89 10/20/21 14:46 Respiratory Rate 18 10/20/21 14:46 Blood Pressure 138/75 10/20/21 14:46 Pulse Oximetry 99 10/20/21 14:46 GENERAL: 36-year-old female, appears to not feel well HEENT: Head atraumatic,EOMI, pupils reactive, face symmetric, moist mucous membranes CARDIOVASCULAR: Regular rate and rhythm without murmurs, rubs or gallops. RESPIRATORY: Breath sounds equal bilaterally, no wheezes rales or rhonchi. ABDOMEN: Soft, nontender. Normoactive bowel sounds all 4 quadrants. No guarding or rebound. : Right CVA tenderness EXTREMITIES: Normal range of motion, no clubbing or edema. Neurovascularly intact NEUROLOGICAL: Alert and oriented x4.Normal gait and speech. SKIN: Warm, dry, no laceration, no petechiae, no rashes or lesions. Course Orders Ordered: ED Orders 10/20/21 15:00 Complete Blood Count AUTO DIFF Stat Comprehensive Metabolic Panel Stat Lipase Stat 10/20/21 15:51 Urine Microscopic Stat Discontinued Medications Ceftriaxone Sodium 1,000 mg/ (Sodium Chloride) 100 mls @ 200 mls/hr IV NOW ONE Stop: 10/20/21 16:06 Last Admin: 10/20/21 16:48 Dose: 200 mls/hr Documented by: Ketorolac Tromethamine (Ketorolac 30 Mg/Ml Vial) 15 mg IV NOW ONE Stop: 10/20/21 16:06 Vital Signs Vital signs: Vital Signs - 8 hr 10/20/21 14:46 Temperature 98.6 F Pulse Rate 89 Respiratory Rate 18 Blood Pressure 138/75 Pulse Oximetry 99 MDM - Female Genitourinary Lab Data Result diagrams: 10/20/21 15:00 10/20/21 15:00 Labs: Lab Results 10/20/21 10/20/21 Range/Units 15:00 15:00 WBC 9.4 (4.5-11.0) X10^3/uL RBC 3.82 L (4.0-5.2) X10^6/uL Hgb 11.9 L (12.0-16.0) g/dL Hct 35.3 L (36-46) % MCV 92.3 (80-100) fL MCH 31.1 (26-34) PG MCHC 33.7 (30-36) % RDW 14.8 (11.6-14.8) % Plt Count 323 (150-400) X10^3/uL Neut % (Auto) 79.4 H (50-75) % Lymph % (Auto) 15.1 L (25-40) % [place] % (Auto) 4.5 (3-14) % Eos % (Auto) 0.5 L (2-4) % Baso % (Auto) 0.5 (0-2) % Neut # (Auto) 7400 H (4044-9122) /uL Lymph # (Auto) 1400 (5754-9358) /uL [place] # (Auto) 400 (0-900) /uL Eos # (Auto) 0 (0-450) /uL Baso # (Auto) 0 (0-100) /uL Sodium 137 (137-145) mmol/L Potassium 4.3 (3.4-5.1) mmol/L Chloride 103 (98-107) mmol/L Carbon Dioxide 27 (22-32) mmol/L BUN 12 (7-17) mg/dL Creatinine 0.91 (0.52-1.04) mg/dL Estimated GFR > 60.0 (>60) mL/min BUN/Creatinine Ratio 13.2 (6-22) Glucose 93 (70-100) mg/dL Calcium 9.5 (8.4-10.2) mg/dL Total Bilirubin 0.4 (0.2-1.3) mg/dL AST 26 (14-36) IU/L ALT 16 (<35) IU/L Alkaline Phosphatase 70 (38-126) U/L Total Protein 7.8 (6.3-8.2) g/dL Albumin 4.6 (3.5-5.0) g/dL Globulin 3.2 (1.7-4.1) g/dL Albumin/Globulin Ratio 1.4 (1.0-2.8) Lipase 115 (23-300) U/L Point of Care Testing Test Results Negative Urine Dip Bedside Urine Glucose Negative Bedside Urine Bilirubin - Negative Bedside Urine Ketone - Negative Urine Specific [place] 1.015 Bedside Urine Occult Blood +/- Bedside Urine pH 7.5 Bedside Urine Protein - Negative Bedside Urine Urobilinogen +/- 1mg Bedside Urine Nitrite + Positive Bedside Urine Leukocytes + 70 Esterase MDM Narrative Medical decision making narrative: Patient has history of frequent UTIs and kidney infections. She is afebrile not tachycardic without leukocytosis no sign of sepsis but she certainly does have nitrates in her urine in signs and symptoms consistent with pyelonephritis. She is given 1 dose of Rocephin in the ED. Previous culture in our system is from February of 2021 and it was pansensitive. Cultures have been requested from [facility]. Patient has been waiting emergency department for quite some time. She would rather just go [facility]er prescriptions and radium at the pharmacy rather than wait for an IV dose of antibiotics. At this time this seems like a reasonable request. She is quite familiar with infection and when to return to ED. Discharge Plan Departure Patient Disposition: Home Clinical Impression: UTI (urinary tract infection) Qualifiers: Urinary tract infection type: acute pyelonephritis Qualified Code(s): N10 - Acute pyelonephritis Activity Restrictions/Additional Instructions: *You have been diagnosed with kidney infection *What to do: At this time it will take 2-3 days for your cultures to come back. We will call you if we should need to change her antibiotic *Continue to take medications as directed Keflex 500 mg twice a day for 7 days Pyridium 200 mg 3 times a day 3 days for a full frequent urination *Follow up with your primary care provider in 2-3 days or call [phone] *Return to ER if you should have increasing pain, or any new, worsening or c oncerning symptoms Prescriptions: New cephalexin 500 mg capsule 500 mg PO BID 7 Days Qty: 14 0RF phenazopyridine [Pyridium] 200 mg tablet 200 mg PO TID PRN (Reason: pain) Qty: 6 0RF No Action cyclobenzaprine 10 mg tablet 10 mg PO BID PRN (Reason: muscle spasm) Qty: 28 0RF Rx Instructions: may make drowsy, do not drive during therapy diclofenac sodium 1 % gel 2 g topical QID Qty: 100 0RF Rx Instructions: apply to neck area. Do not use with other NSAIDs trazodone 50 mg Tablet 150 mg PO BEDTIME PRN (Reason: Sleep) 0RF lamotrigine 25 mg Tablet 25 mg PO BID 0RF norgestimate-ethinyl estradiol [Ortho Tri-Cyclen (28)] 0.18/0.215/0.25 mg-35 mcg (28) Tablet 1 tab PO QPM 0RF ondansetron HCl [Zofran] 4 mg tablet 4 mg PO Q6H PRN (Reason: nausea and vomiting) Qty: 10 0RF ondansetron 4 mg tablet,disintegrating 4 mg PO TID-QID PRN (Reason: nausea and vomiting) Qty: 10 0RF sumatriptan [Imitrex] 20 mg/actuation spray,non-aerosol 20 mg intranasal Q2H PRN (Reason: migraine headache) Qty: 6 0RF Rx Instructions: administer into one nostril as a single dose; if 2nd dose needed,administer into other nostril after at least 2 hrs, NTE 2 doses (40 mg) per episode methylprednisolone [Medrol (Haider)] 4 mg tablets,dose pack See Rx Instructions .ROUTE .COMPLEX Qty: 21 0RF Rx Instructions: orally per package directions methylprednisolone [Medrol (Haider)] 4 mg tablets,dose pack 4 mg PO DAILY Qty: 21 0RF Referrals: Miscellaneous,Doctor, MD [Primary Care Provider] -
[2021-10-20] MEDS: cefTRIAXone 1,000 MG in SODIUM CHLORIDE 0.9% 100 ML 200 ML IV (16:48)
[2021-10-20 17:25] LABS: Amorphous Sediment Urine 1+; Bacteria Urine Many (>30); Culture Indicated Urine Specimen Cultured; RBC Urine 1-5/HPF (0-5/HPF); Squamous Epithelial Cell Urine 1-5 /HPF (0-5/HPF); WBC Urine 10-30/HPF (0-5/HPF)
== END 2021-10-20 17:11 | disposition home or self-care (01) ==
PROVIDERS: Emergency Provider Emergency Medicine; Family Provider Family Medicine
DX: N10 Acute pyelonephritis (principal); R11.2 Nausea with vomiting, unspecified
CPT/HCPCS: 80053; 81003; 81015; 81025; 83690; 85025; 87077; 87086; 87186; 96365; 99281; 99283; 99284; J0696

== ENCOUNTER 2021-10-20 22:21 | Emergency (ER) | payer BC, OTHER, MEDICAID, SELFPAY ==
[2021-10-20 23:07] VITALS: BP 115/77; PULSE 94; RESP 18; TEMP 36.9; O2SAT 98; BMI 26.6
[2021-10-20] MEDS: ONDANSETRON 4 MG ODT PREPACK 1 BOTTLE MISC (23:20)
== END 2021-10-20 23:33 | disposition left against medical advice (07) ==
PROVIDERS: Emergency Provider Emergency Medicine; Family Provider Family Medicine
DX: R11.2 Nausea with vomiting, unspecified (principal)

== ENCOUNTER 2023-01-28 16:26 | Emergency (ER) | payer OTHER, MEDICAID, SELFPAY ==
[2023-01-28] VITALS (9 sets, daily range): BP systolic 104–138; BP diastolic 62–102; PULSE 67–93; RESP 16–19; TEMP 36.6–37; O2SAT 96–99; BMI 21.9
--- NOTE | 2023-01-28 17:11 | ED.FEMALEGU ---
HPI - Female Genitourinary <Makayla Balbuena, [facility] - Last Filed: 01/29/23 12:21> General Chief complaint: Urogenital-Female Stated complaint: states kidney stone Time Seen by Provider: 01/28/23 16:28 Source: patient Mode of arrival: Family Vehicle History of Present Illness HPI Narrative: This is a 37-year-old female with history of bipolar, kidney and other UTI infections and is presenting today complaining of bilateral flank pain, worse over the last few days and states it feels like prior kidney infections. She denies fever chills. States that she has pain in the right and left flank but it is worse on the left. She was recently on cephalexin for prior UTI. States that she is had multiple prescribers either David manuel or her urologist but no antibiotics from her urologist recently. States that she is had this pain intermittently for the last 2 weeks and it started with dysuria urinary symptoms but now is worse. Her urology provider is GUANACO Patterson. Denies abnormal vaginal discharge, states history of appendectomy. States that she was previously on Suboxone but it did not help with her pain. States that for the last 6 months she is been on and off ill related to this. Endorses history of kidney stones and thinks that this is related but endorses that it started with urinary symptoms. Reports that she Has not had a CT scan in over a year. Related Data Home Medications Medication Instructions Recorded Confirmed lamotrigine 25 mg tablet 25 mg PO BID 12/06/19 09/05/21 norgestimate-ethinyl estradiol 1 tab PO QPM 12/06/19 09/05/21 0.18 mg/0.215mg/0.25mg-35 mcg(28)tablet (Ortho Tri-Cyclen (28)) trazodone 50 mg tablet 150 mg PO BEDTIME PRN Sleep 12/06/19 09/05/21 Previous Rx's Medication Instructions Recorded ondansetron HCl 4 mg tablet 4 mg PO Q6H PRN nausea and 03/06/21 (Zofran) vomiting #10 tabs ondansetron 4 mg disintegrating 4 mg PO TID-QID PRN nausea and 03/09/21 tablet vomiting #10 tabs sumatriptan 20 mg/actuation nasal 20 mg intranasal Q2H PRN migraine 08/17/21 spray (Imitrex) headache #6 ea cyclobenzaprine 10 mg tablet 10 mg PO BID PRN muscle spasm #28 09/03/21 tabs diclofenac sodium 1 % topical gel 2 g topical QID #100 grams 09/03/21 methylprednisolone 4 mg tablets in See Rx Instructions PO .COMPLEX 09/05/21 a dose pack (Medrol ([place])) #21 ea methylprednisolone 4 mg tablets in 4 mg PO DAILY #21 ea 09/24/21 a dose pack (Medrol ([place])) phenazopyridine 200 mg tablet 200 mg PO TID PRN pain 6 doses #6 10/20/21 (Pyridium) tabs ibuprofen 800 mg tablet 800 mg PO TID PRN pain #30 tabs 01/28/23 oxycodone 5 mg tablet 5 mg PO Q6H PRN pain #10 tabs 01/28/23 Allergies Allergy/AdvReac Type Severity Reaction Status Date / Time ketorolac [From Toradol] Allergy Rash Verified 01/28/23 16:49 prochlorperazine AdvReac Verified 01/28/23 16:49 [From Compazine] Review of Systems <BRITTANY Jones - Last Filed: 01/29/23 12:21> Review of Systems ROS Unobtainable: All systems reviewed & are unremarkable except as noted in HPI and below Patient History <BRITTANY Jones - Last Filed: 01/29/23 12:21> Medical History Kidney stones Migraine tobacco type: vaping alcohol intake frequency: other Substance Use Type: does not use Exam <BRITTANY Jones - Last Filed: 01/29/23 12:21> Narrative Exam Narrative: Reviewed vitals signs and nursing notes. General: Pleasant, sitting upright, in acute distress, writhing, complaining of left flank pain which is worsening right, afebrile HEENT: symmetrical facial expressions, moist mucous membranes, neck is supple CV: regular rate and rhythm, warm extremities Respiratory: normal work of breathing, without tachypnea or hypoxia. GI: abdomen soft, nondistended, patient reports positive CVA tenderness with palpation. MSK: moves all extremities, no weakness, normal tone, ambulatory without deficit Skin: brisk capillary refill, without rash or wound,, no diaphoresis Neuro: normal speech and cognition, A&O x3 Initial Vital Signs Initial Vital Signs: Vital Signs Temperature 98.6 F 01/28/23 16:43 Pulse Rate 78 01/28/23 16:43 Respiratory Rate 19 01/28/23 16:43 Pulse Oximetry 96 01/28/23 16:43 Oxygen Delivery Method Room Air 01/28/23 16:43 <Kamilla Malcolm, DO - Last Filed: 01/29/23 06:51> Initial Vital Signs Initial Vital Signs: Vital Signs Temperature 98.6 F 01/28/23 16:43 Pulse Rate 78 01/28/23 16:43 Respiratory Rate 19 01/28/23 16:43 Pulse Oximetry 96 01/28/23 16:43 Oxygen Delivery Method Room Air 01/28/23 16:43 <Florencio Kumar DO - Last Filed: 01/29/23 19:08> Initial Vital Signs Initial Vital Signs: Vital Signs Temperature 98.6 F 01/28/23 16:43 Pulse Rate 78 01/28/23 16:43 Respiratory Rate 19 01/28/23 16:43 Pulse Oximetry 96 01/28/23 16:43 Oxygen Delivery Method Room Air 01/28/23 16:43 Course <BRITTANY Jones - Last Filed: 01/29/23 12:21> Orders Ordered: Discontinued Medications Hydromorphone HCl (Hydromorphone 0.5 Mg Inj) 0.5 mg IV NOW ONE Stop: 01/28/23 18:20 Last Admin: 01/28/23 18:28 Dose: 0.5 mg Documented By: JOSEPH Sodium Chloride (Normal Saline 0.9%) 1,000 mls @ 1,000 mls/hr IV BOLUS ONE Stop: 01/28/23 19:18 Last Infusion: 01/28/23 19:36 Dose: 0 mls/hr Documented By: Admin: 01/28/23 18:33 Dose: 1,000 mls/hr Documented By: JOSEPH Nitrofurantoin Macrocrystals (Nitrofurantoin Er 100 Mg Capsule) 100 mg PO NOW ONE Stop: 01/28/23 19:07 Last Admin: 01/28/23 19:18 Dose: 100 mg Documented By: TORIE Ondansetron HCl (Ondansetron 4 Mg Odt) 4 mg SL NOW PRN PRN Reason: Nausea And Vomiting Ondansetron HCl (Ondansetron 4 Mg/2 Ml Inj) 4 mg IV NOW PRN PRN Reason: Nausea And Vomiting Last Admin: 01/28/23 18:28 Dose: 4 mg Documented By: JOSEPH Oxycodone/Acetaminophen (Oxycodone/Acetaminophen 5/325 Tablet) 1 tab PO NOW ONE Stop: 01/28/23 19:45 Last Admin: 01/28/23 19:51 Dose: 1 tab Documented By: TORIE Oxycodone/Acetaminophen (Oxycodone/Apap 5/325 Prepack) 1 bottle MISC SEEINSTR ONE Stop: 01/28/23 21:15 Last Admin: 01/28/23 21:20 Dose: 1 bottle Documented By: MELY Vital Signs Vital signs: Vital Signs - 8 hr 01/28/23 16:43 01/28/23 17:30 01/28/23 18:44 Temperature 98.6 F Pulse Rate 78 93 H 69 Respiratory Rate 19 Blood Pressure 138/102 H Pulse Oximetry 96 98 99 Oxygen Delivery Method Room Air 01/28/23 18:48 01/28/23 18:48 01/28/23 19:00 Temperature Pulse Rate 68 67 Respiratory Rate Blood Pressure 112/71 Pulse Oximetry 98 97 Oxygen Delivery Method 01/28/23 19:03 01/28/23 19:03 Temperature Pulse Rate 74 Respiratory Rate Blood Pressure 114/64 Pulse Oximetry 99 Oxygen Delivery Method <Kamilla Malcolm, - Last Filed: 01/29/23 06:51> Orders Ordered: Discontinued Medications Hydromorphone HCl (Hydromorphone 0.5 Mg Inj) 0.5 mg IV NOW ONE Stop: 01/28/23 18:20 Last Admin: 01/28/23 18:28 Dose: 0.5 mg Documented By: JOSEPH Sodium Chloride (Normal Saline 0.9%) 1,000 mls @ 1,000 mls/hr IV BOLUS ONE Stop: 01/28/23 19:18 Last Infusion: 01/28/23 19:36 Dose: 0 mls/hr Documented By: Admin: 01/28/23 18:33 Dose: 1,000 mls/hr Documented By: JOSEPH Nitrofurantoin Macrocrystals (Nitrofurantoin Er 100 Mg Capsule) 100 mg PO NOW ONE Stop: 01/28/23 19:07 Last Admin: 01/28/23 19:18 Dose: 100 mg Documented By: TORIE Ondansetron HCl (Ondansetron 4 Mg Odt) 4 mg SL NOW PRN PRN Reason: Nausea And Vomiting Ondansetron HCl (Ondansetron 4 Mg/2 Ml Inj) 4 mg IV NOW PRN PRN Reason: Nausea And Vomiting Last Admin: 01/28/23 18:28 Dose: 4 mg Documented By: JOSEPH Oxycodone/Acetaminophen (Oxycodone/Acetaminophen 5/325 Tablet) 1 tab PO NOW ONE Stop: 01/28/23 19:45 Last Admin: 01/28/23 19:51 Dose: 1 tab Documented By: TORIE Oxycodone/Acetaminophen (Oxycodone/Apap 5/325 Prepack) 1 bottle MISC SEEINSTR ONE Stop: 01/28/23 21:15 Last Admin: 01/28/23 21:20 Dose: 1 bottle Documented By: MELY Vital Signs Vital signs: Vital Signs - 8 hr 01/28/23 16:43 01/28/23 17:30 01/28/23 18:44 Temperature 98.6 F Pulse Rate 78 93 H 69 Respiratory Rate 19 Blood Pressure 138/102 H Pulse Oximetry 96 98 99 Oxygen Delivery Method Room Air 01/28/23 18:48 01/28/23 18:48 01/28/23 19:00 Temperature Pulse Rate 68 67 Respiratory Rate Blood Pressure 112/71 Pulse Oximetry 98 97 Oxygen Delivery Method 01/28/23 19:03 01/28/23 19:03 Temperature Pulse Rate 74 Respiratory Rate Blood Pressure 114/64 Pulse Oximetry 99 Oxygen Delivery Method <Florencio Kumar DO - Last Filed: 01/29/23 19:08> Orders Ordered: Discontinued Medications Hydromorphone HCl (Hydromorphone 0.5 Mg Inj) 0.5 mg IV NOW ONE Stop: 01/28/23 18:20 Last Admin: 01/28/23 18:28 Dose: 0.5 mg Documented By: JOSEPH Sodium Chloride (Normal Saline 0.9%) 1,000 mls @ 1,000 mls/hr IV BOLUS ONE Stop: 01/28/23 19:18 Last Infusion: 01/28/23 19:36 Dose: 0 mls/hr Documented By: Admin: 01/28/23 18:33 Dose: 1,000 mls/hr Documented By: JOSEPH Nitrofurantoin Macrocrystals (Nitrofurantoin Er 100 Mg Capsule) 100 mg PO NOW ONE Stop: 01/28/23 19:07 Last Admin: 01/28/23 19:18 Dose: 100 mg Documented By: TORIE Ondansetron HCl (Ondansetron 4 Mg Odt) 4 mg SL NOW PRN PRN Reason: Nausea And Vomiting Ondansetron HCl (Ondansetron 4 Mg/2 Ml Inj) 4 mg IV NOW PRN PRN Reason: Nausea And Vomiting Last Admin: 01/28/23 18:28 Dose: 4 mg Documented By: JOSEPH Oxycodone/Acetaminophen (Oxycodone/Acetaminophen 5/325 Tablet) 1 tab PO NOW ONE Stop: 01/28/23 19:45 Last Admin: 01/28/23 19:51 Dose: 1 tab Documented By: TORIE Oxycodone/Acetaminophen (Oxycodone/Apap 5/325 Prepack) 1 bottle MISC SEEINSTR ONE Stop: 01/28/23 21:15 Last Admin: 01/28/23 21:20 Dose: 1 bottle Documented By: AP Vital Signs Vital signs: Vital Signs - 8 hr 01/28/23 16:43 01/28/23 17:30 01/28/23 18:44 Temperature 98.6 F Pulse Rate 78 93 H 69 Respiratory Rate 19 Blood Pressure 138/102 H Pulse Oximetry 96 98 99 Oxygen Delivery Method Room Air 01/28/23 18:48 01/28/23 18:48 01/28/23 19:00 Temperature Pulse Rate 68 67 Respiratory Rate Blood Pressure 112/71 Pulse Oximetry 98 97 Oxygen Delivery Method 01/28/23 19:03 01/28/23 19:03 Temperature Pulse Rate 74 Respiratory Rate Blood Pressure 114/64 Pulse Oximetry 99 Oxygen Delivery Method MDM - Female Genitourinary <BRITTANY Jones - Last Filed: 01/29/23 12:21> Lab Data 01/28/23 18:00 01/28/23 18:00 Labs: Lab Results 01/28/23 01/28/23 01/28/23 Range/Units 16:58 16:58 18:00 WBC 4.8 (4.5-11.0) X10^3/uL RBC 3.76 L (4.0-5.2) X10^6/uL Hgb 11.8 L (12.0-16.0) g/dL Hct 34.9 L (36-46) % MCV 92.7 (80-100) fL MCH 31.5 (26-34) PG MCHC 34.0 (30-36) % RDW 13.9 (11.6-14.8) % Plt Count 250 (150-400) X10^3/uL Neut % (Auto) 66.1 (50-75) % Lymph % (Auto) 25.0 (25-40) % [place] % (Auto) 6.6 (3-14) % Eos % (Auto) 1.7 L (2-4) % Baso % (Auto) 0.6 (0-2) % Neut # (Auto) 3200 (6823-9536) /uL Lymph # (Auto) 1200 (4315-9659) /uL [place] # (Auto) 300 (0-900) /uL Eos # (Auto) 100 (0-450) /uL Baso # (Auto) 0 (0-100) /uL Sodium (137-145) mmol/L Potassium (3.4-5.1) mmol/L Chloride (98-107) mmol/L Carbon Dioxide (22-32) mmol/L BUN (7-17) mg/dL Creatinine (0.52-1.04) mg/dL Estimated GFR (>60) mL/min BUN/Creatinine Ratio (6-22) Glucose (70-100) mg/dL Lactate (0.7-2.1) mmol/L Calcium (8.4-10.2) mg/dL Total Bilirubin (0.2-1.3) mg/dL AST (14-36) IU/L ALT (<35) IU/L Alkaline Phosphatase (38-126) U/L C-Reactive Protein (<1.0) mg/dL Total Protein (6.3-8.2) g/dL Albumin (3.5-5.0) g/dL Globulin (1.7-4.1) g/dL Albumin/Globulin Ratio (1.0-2.8) Lipase (23-300) U/L Urine RBC 1-5/hpf (0-5/HPF) Urine WBC 0-1/hpf (0-5/HPF) Ur Squamous Epith Cells 0-1 /hpf (0-5/HPF) Amorphous Sediment 2+ Urine Bacteria Few (2-10) H (None) Ur Culture Indicated? Cult not indicated Ur Chlamydia DNA (PCR) Not detected N gonorrhoeae DNA (PCR) Not detected 01/28/23 01/28/23 Range/Units 18:00 18:00 WBC (4.5-11.0) X10^3/uL RBC (4.0-5.2) X10^6/uL Hgb (12.0-16.0) g/dL Hct (36-46) % MCV (80-100) fL MCH (26-34) PG MCHC (30-36) % RDW (11.6-14.8) % Plt Count (150-400) X10^3/uL Neut % (Auto) (50-75) % Lymph % (Auto) (25-40) % [place] % (Auto) (3-14) % Eos % (Auto) (2-4) % Baso % (Auto) (0-2) % Neut # (Auto) (6562-1206) /uL Lymph # (Auto) (6440-0076) /uL [place] # (Auto) (0-900) /uL Eos # (Auto) (0-450) /uL Baso # (Auto) (0-100) /uL Sodium 138 (137-145) mmol/L Potassium 3.9 (3.4-5.1) mmol/L Chloride 104 (98-107) mmol/L Carbon Dioxide 28 (22-32) mmol/L BUN 11 (7-17) mg/dL Creatinine 0.69 (0.52-1.04) mg/dL Estimated GFR > 60 (>60) mL/min BUN/Creatinine Ratio 15.9 (6-22) Glucose 110 H (70-100) mg/dL Lactate 1.3 (0.7-2.1) mmol/L Calcium 9.0 (8.4-10.2) mg/dL Total Bilirubin 0.3 (0.2-1.3) mg/dL AST 29 (14-36) IU/L ALT 23 (<35) IU/L Alkaline Phosphatase 65 (38-126) U/L C-Reactive Protein < 0.5 (<1.0) mg/dL Total Protein 7.1 (6.3-8.2) g/dL Albumin 4.0 (3.5-5.0) g/dL Globulin 3.1 (1.7-4.1) g/dL Albumin/Globulin Ratio 1.3 (1.0-2.8) Lipase 88 (23-300) U/L Urine RBC (0-5/HPF) Urine WBC (0-5/HPF) Ur Squamous Epith Cells (0-5/HPF) Amorphous Sediment Urine Bacteria (None) Ur Culture Indicated? Ur Chlamydia DNA (PCR) N gonorrhoeae DNA (PCR) Point of Care Testing Test Results Negative Urine Dip Bedside Urine Glucose Negative Bedside Urine Bilirubin - Negative Bedside Urine Ketone - Negative Urine Specific [place] 1.010 Bedside Urine Occult Blood +++ Bedside Urine pH 8.0 Bedside Urine Protein - Negative Bedside Urine Urobilinogen - Negative Bedside Urine Nitrite - Negative Bedside Urine Leukocytes - Negative Esterase MDM Narrative Medical decision making narrative: Chief Complaint: flank pain Independent historian: Patient Differential diagnoses include but are not limited to: Diverticulitis, pelvic infection, vaginitis, urinary tract infection, pyelonephritis, nephrolithiasis, other obstructive uropathy, chronic pain, dehydration I have independently reviewed the patient's vital signs and nursing notes as well as prior records if available. Pertinent lab findings reviewed: No leukocytosis, chronic mild anemia which is unchanged, no left shift, chemistries unremarkable, no lactate elevation, no elevation of CRP or lipase, UA shows few bacteria, sediment present, likely contamination. Pertinent Imaging reviewed: CT abdomen pelvis: Course of care: Patient's pain was treated with hydromorphone, IV fluid and Zofran, she later complained of pain again, was given Percocet for this. Still pending CT results 1957 PACs imaging states that it is read but is not transfer Social considerations that may affect disposition: none Questions are addressed and there is agreement with the plan and for follow-up. Patient is appropriate for outpatient management. MIPS: This encounter doesn't have any diagnosis' associated with MIPS criteria. <Kamilla Malcolm, DO - Last Filed: 01/29/23 06:51> Lab Data Labs: Lab Results 01/28/23 01/28/23 01/28/23 Range/Units 16:58 16:58 18:00 WBC 4.8 (4.5-11.0) X10^3/uL RBC 3.76 L (4.0-5.2) X10^6/uL Hgb 11.8 L (12.0-16.0) g/dL Hct 34.9 L (36-46) % MCV 92.7 (80-100) fL MCH 31.5 (26-34) PG MCHC 34.0 (30-36) % RDW 13.9 (11.6-14.8) % Plt Count 250 (150-400) X10^3/uL Neut % (Auto) 66.1 (50-75) % Lymph % (Auto) 25.0 (25-40) % [place] % (Auto) 6.6 (3-14) % Eos % (Auto) 1.7 L (2-4) % Baso % (Auto) 0.6 (0-2) % Neut # (Auto) 3200 (2355-8001) /uL Lymph # (Auto) 1200 (8176-4811) /uL [place] # (Auto) 300 (0-900) /uL Eos # (Auto) 100 (0-450) /uL Baso # (Auto) 0 (0-100) /uL Sodium (137-145) mmol/L Potassium (3.4-5.1) mmol/L Chloride (98-107) mmol/L Carbon Dioxide (22-32) mmol/L BUN (7-17) mg/dL Creatinine (0.52-1.04) mg/dL Estimated GFR (>60) mL/min BUN/Creatinine Ratio (6-22) Glucose (70-100) mg/dL Lactate (0.7-2.1) mmol/L Calcium (8.4-10.2) mg/dL Total Bilirubin (0.2-1.3) mg/dL AST (14-36) IU/L ALT (<35) IU/L Alkaline Phosphatase (38-126) U/L C-Reactive Protein (<1.0) mg/dL Total Protein (6.3-8.2) g/dL Albumin (3.5-5.0) g/dL Globulin (1.7-4.1) g/dL Albumin/Globulin Ratio (1.0-2.8) Lipase (23-300) U/L Urine RBC 1-5/hpf (0-5/HPF) Urine WBC 0-1/hpf (0-5/HPF) Ur Squamous Epith Cells 0-1 /hpf (0-5/HPF) Amorphous Sediment 2+ Urine Bacteria Few (2-10) H (None) Ur Culture Indicated? Cult not indicated Ur Chlamydia DNA (PCR) Not detected N gonorrhoeae DNA (PCR) Not detected 01/28/23 01/28/23 Range/Units 18:00 18:00 WBC (4.5-11.0) X10^3/uL RBC (4.0-5.2) X10^6/uL Hgb (12.0-16.0) g/dL Hct (36-46) % MCV (80-100) fL MCH (26-34) PG MCHC (30-36) % RDW (11.6-14.8) % Plt Count (150-400) X10^3/uL Neut % (Auto) (50-75) % Lymph % (Auto) (25-40) % [place] % (Auto) (3-14) % Eos % (Auto) (2-4) % Baso % (Auto) (0-2) % Neut # (Auto) (6325-7214) /uL Lymph # (Auto) (4556-1029) /uL [place] # (Auto) (0-900) /uL Eos # (Auto) (0-450) /uL Baso # (Auto) (0-100) /uL Sodium 138 (137-145) mmol/L Potassium 3.9 (3.4-5.1) mmol/L Chloride 104 (98-107) mmol/L Carbon Dioxide 28 (22-32) mmol/L BUN 11 (7-17) mg/dL Creatinine 0.69 (0.52-1.04) mg/dL Estimated GFR > 60 (>60) mL/min BUN/Creatinine Ratio 15.9 (6-22) Glucose 110 H (70-100) mg/dL Lactate 1.3 (0.7-2.1) mmol/L Calcium 9.0 (8.4-10.2) mg/dL Total Bilirubin 0.3 (0.2-1.3) mg/dL AST 29 (14-36) IU/L ALT 23 (<35) IU/L Alkaline Phosphatase 65 (38-126) U/L C-Reactive Protein < 0.5 (<1.0) mg/dL Total Protein 7.1 (6.3-8.2) g/dL Albumin 4.0 (3.5-5.0) g/dL Globulin 3.1 (1.7-4.1) g/dL Albumin/Globulin Ratio 1.3 (1.0-2.8) Lipase 88 (23-300) U/L Urine RBC (0-5/HPF) Urine WBC (0-5/HPF) Ur Squamous Epith Cells (0-5/HPF) Amorphous Sediment Urine Bacteria (None) Ur Culture Indicated? Ur Chlamydia DNA (PCR) N gonorrhoeae DNA (PCR) Point of Care Testing Test Results Negative Urine Dip Bedside Urine Glucose Negative Bedside Urine Bilirubin - Negative Bedside Urine Ketone - Negative Urine Specific [place] 1.010 Bedside Urine Occult Blood +++ Bedside Urine pH 8.0 Bedside Urine Protein - Negative Bedside Urine Urobilinogen - Negative Bedside Urine Nitrite - Negative Bedside Urine Leukocytes - Negative Esterase Imaging Data CT scan - abdomen/pelvis: Radiologist's Impression: Close Abdomen/Pelvis CT (Signed) EmmanuelFareed - 01/28/23 Launch?[place] [address] CT Scan Report Signed Patient: Kristine Renteria MR#: [id number] : 1985 Acct:[id number] Age/Sex: 37 / F Date of Service: 01/28/23 Loc: ED Accession Number: [id number] ?? Procedure: CT abdomen pelvis w con Ordering Provider: Makayla Balbuena PROCEDURE:? CT ABDOMEN PELVIS W CON ? INDICATIONS:? rt flank pain ? TECHNIQUE:? After the administration of oral and IV contrast, axial sections were acquired from the lung bases to the pubic symphysis.? Coronal and sagittal reformats were performed.? For radiation dose reduction, the following was used:? automated exposure control, adjustment of mA and/or kV according to patient size. ? COMPARISON:? [facility], CT, CT KUB, 10/01/2022, 2:28.? [facility], CT, CT ABDOMEN PELVIS W CON, 07/12/2020, 6:11. ? FINDINGS:? Image quality:? Excellent.? ? Lung bases:? Unremarkable.? ? Heart:? No significant findings. ? ? ABDOMEN: Liver:? Small cyst in the right lobe of the liver, similar.? ? Gallbladder:? Not distended. Biliary ducts:? Unremarkable.? ? Pancreas:? Unremarkable.? ? Spleen:? Unremarkable.? ? Adrenal Glands:? Unremarkable.? ? Kidneys and Ureters:? No hydronephrosis.? Stone in the right renal pelvis measuring 0.7 cm, (2/36), previously 0.6 cm.? Simple cyst at the left kidney. ? Stomach and Bowel:? Stomach, small bowel loops, and colon are unremarkable.? The appendix is not seen. Peritoneum:? Somewhat prominent stool in the right colon. ? Ventral Wall: ? No hernia.? Abdominal Nodes:? No retroperitoneal or mesenteric adenopathy by size criteria.? Vessels:? Aorta and inferior vena cava are normal in size.? ? PELVIS: Pelvic Organs:? Anteverted uterus.? Clips in the region of the adnexa bilaterally.? Probable small right ovarian cyst measuring 2.1 cm, (267).? ? Bladder:? Unremarkable.? ? Pelvic Nodes: No enlarged lymph nodes.? Miscellaneous: No inguinal hernias are seen. ? ? ? Bones:? No suspicious lesion.? ? ? IMPRESSION:? 1. Small stone in the right renal pelvis measuring 0.7 cm is not significantly changed.? No hydronephrosis. ? 2. Possible small right ovarian cyst. ? ? Dictated by: Nona Oconnor M.D. on 01/28/2023 at 19:49 ? ? Approved by: Fareed Benitez M.D. on 01/28/2023 at 20:46?? MDM Narrative Medical decision making narrative: Chief Complaint: flank pain Independent historian: Patient Differential diagnoses include but are not limited to: Diverticulitis, pelvic infection, vaginitis, urinary tract infection, pyelonephritis, nephrolithiasis, other obstructive uropathy, chronic pain, dehydration I have independently reviewed the patient's vital signs and nursing notes as well as prior records if available. Pertinent lab findings reviewed: No leukocytosis, chronic mild anemia which is unchanged, no left shift, chemistries unremarkable, no lactate elevation, no elevation of CRP or lipase, UA shows few bacteria, sediment present, likely contamination. Pertinent Imaging reviewed: CT abdomen pelvis: Course of care: Patient's pain was treated with hydromorphone, IV fluid and Zofran, she later complained of pain again, was given Percocet for this. Still pending CT results 1957 PACs imaging states that it is read but is not transfer Social considerations that may affect disposition: none Questions are addressed and there is agreement with the plan and for follow-up. Patient is appropriate for outpatient management. MIPS: This encounter doesn't have any diagnosis' associated with MIPS criteria. 01/28/23 Mank: Patient signed out to myself by CRYPTOGRAPHY TEACHER Crew. Patient seen and evaluated by myself. There was a delay CT returned was found to have a right renal pelvis stone, 0.7 mm seen prior imaging with a possible small right ovarian cyst, no hydro. Patient has clips in the adnexa bilaterally with no other acute changes. Patient's urine has bacteria no nitrites or leuks, chlamydia and gonorrhea were negative. For prep had occasional white cell, no clues, no yeast no trich. Patient was requesting to leave. Reviewed her findings. She is uncomfortable but improved after pain medications. She states she is been on a lot of antibiotics recently she would like to wait for culture. Discussed her findings with her right renal pelvis stone this could ball valve and sometimes cause her pain. She sees Urology already, states she does have Flomax available at home, she states she typically takes Tylenol and ibuprofen narcotics for pain management with kidney stones. Discussed return precautions all questions answered patient felt appropriate for discharge home no sepsis or other changes appreciated on renal function, white count, or vital signs. <Florencio Kumar, DO - Last Filed: 01/29/23 19:08> Lab Data Labs: Lab Results 01/28/23 01/28/23 01/28/23 Range/Units 16:58 16:58 18:00 WBC 4.8 (4.5-11.0) X10^3/uL RBC 3.76 L (4.0-5.2) X10^6/uL Hgb 11.8 L (12.0-16.0) g/dL Hct 34.9 L (36-46) % MCV 92.7 (80-100) fL MCH 31.5 (26-34) PG MCHC 34.0 (30-36) % RDW 13.9 (11.6-14.8) % Plt Count 250 (150-400) X10^3/uL Neut % (Auto) 66.1 (50-75) % Lymph % (Auto) 25.0 (25-40) % [place] % (Auto) 6.6 (3-14) % Eos % (Auto) 1.7 L (2-4) % Baso % (Auto) 0.6 (0-2) % Neut # (Auto) 3200 (8285-0077) /uL Lymph # (Auto) 1200 (4338-8108) /uL [place] # (Auto) 300 (0-900) /uL Eos # (Auto) 100 (0-450) /uL Baso # (Auto) 0 (0-100) /uL Sodium (137-145) mmol/L Potassium (3.4-5.1) mmol/L Chloride (98-107) mmol/L Carbon Dioxide (22-32) mmol/L BUN (7-17) mg/dL Creatinine (0.52-1.04) mg/dL Estimated GFR (>60) mL/min BUN/Creatinine Ratio (6-22) Glucose (70-100) mg/dL Lactate (0.7-2.1) mmol/L Calcium (8.4-10.2) mg/dL Total Bilirubin (0.2-1.3) mg/dL AST (14-36) IU/L ALT (<35) IU/L Alkaline Phosphatase (38-126) U/L C-Reactive Protein (<1.0) mg/dL Total Protein (6.3-8.2) g/dL Albumin (3.5-5.0) g/dL Globulin (1.7-4.1) g/dL Albumin/Globulin Ratio (1.0-2.8) Lipase (23-300) U/L Urine RBC 1-5/hpf (0-5/HPF) Urine WBC 0-1/hpf (0-5/HPF) Ur Squamous Epith Cells 0-1 /hpf (0-5/HPF) Amorphous Sediment 2+ Urine Bacteria Few (2-10) H (None) Ur Culture Indicated? Cult not indicated Ur Chlamydia DNA (PCR) Not detected N gonorrhoeae DNA (PCR) Not detected 01/28/23 01/28/23 Range/Units 18:00 18:00 WBC (4.5-11.0) X10^3/uL RBC (4.0-5.2) X10^6/uL Hgb (12.0-16.0) g/dL Hct (36-46) % MCV (80-100) fL MCH (26-34) PG MCHC (30-36) % RDW (11.6-14.8) % Plt Count (150-400) X10^3/uL Neut % (Auto) (50-75) % Lymph % (Auto) (25-40) % [place] % (Auto) (3-14) % Eos % (Auto) (2-4) % Baso % (Auto) (0-2) % Neut # (Auto) (9554-6673) /uL Lymph # (Auto) (9529-4349) /uL [place] # (Auto) (0-900) /uL Eos # (Auto) (0-450) /uL Baso # (Auto) (0-100) /uL Sodium 138 (137-145) mmol/L Potassium 3.9 (3.4-5.1) mmol/L Chloride 104 (98-107) mmol/L Carbon Dioxide 28 (22-32) mmol/L BUN 11 (7-17) mg/dL Creatinine 0.69 (0.52-1.04) mg/dL Estimated GFR > 60 (>60) mL/min BUN/Creatinine Ratio 15.9 (6-22) Glucose 110 H (70-100) mg/dL Lactate 1.3 (0.7-2.1) mmol/L Calcium 9.0 (8.4-10.2) mg/dL Total Bilirubin 0.3 (0.2-1.3) mg/dL AST 29 (14-36) IU/L ALT 23 (<35) IU/L Alkaline Phosphatase 65 (38-126) U/L C-Reactive Protein < 0.5 (<1.0) mg/dL Total Protein 7.1 (6.3-8.2) g/dL Albumin 4.0 (3.5-5.0) g/dL Globulin 3.1 (1.7-4.1) g/dL Albumin/Globulin Ratio 1.3 (1.0-2.8) Lipase 88 (23-300) U/L Urine RBC (0-5/HPF) Urine WBC (0-5/HPF) Ur Squamous Epith Cells (0-5/HPF) Amorphous Sediment Urine Bacteria (None) Ur Culture Indicated? Ur Chlamydia DNA (PCR) N gonorrhoeae DNA (PCR) Point of Care Testing Test Results Negative Urine Dip Bedside Urine Glucose Negative Bedside Urine Bilirubin - Negative Bedside Urine Ketone - Negative Urine Specific [place] 1.010 Bedside Urine Occult Blood +++ Bedside Urine pH 8.0 Bedside Urine Protein - Negative Bedside Urine Urobilinogen - Negative Bedside Urine Nitrite - Negative Bedside Urine Leukocytes - Negative Esterase Discharge Plan Departure Patient Disposition: Home Clinical Impression: Renal calculus, right Instructions: DI for Kidney Stones Activity Restrictions/Additional Instructions: You have a kidney stone on the right renal pelvis. Your urine cultures pending this takes about 48 hours if positive you would be contacted to start antibiotics. Please follow-up with your urology team, IVCTOR M Patterson. Call to set up an appointment. You may take Tylenol up to a 1000 mg every 6 hours, ibuprofen up to 800 mg every 8 hours. Please restart your Flomax and take once daily for at least a week. You may take oxycodone 1-2 tablets every 6 hours as needed for pain. This medication can make you sleepy do not drive, perform hazardous activities or make any major decisions while taking it. This medication will make you constipated please take a stool softener once to twice daily until stools are soft and regular. Prescription sent to [facility] in [place] Please return for fevers, persistent vomiting, lightheadedness or passing out, inability urinate, rapidly worsening abdominal back or flank pain or other new or concerning changes. Prescriptions: New ibuprofen 800 mg tablet 800 mg PO TID PRN (Reason: pain) Qty: 30 0RF oxycodone 5 mg tablet 5 mg PO Q6H PRN (Reason: pain) Qty: 10 0RF No Action cyclobenzaprine 10 mg tablet 10 mg PO BID PRN (Reason: muscle spasm) Qty: 28 0RF Rx Instructions: may make drowsy, do not drive during therapy diclofenac sodium 1 % gel 2 g topical QID Qty: 100 0RF Rx Instructions: apply to neck area. Do not use with other NSAIDs trazodone 50 mg Tablet 150 mg PO BEDTIME PRN (Reason: Sleep) lamotrigine 25 mg Tablet 25 mg PO BID norgestimate-ethinyl estradiol [Ortho Tri-Cyclen (28)] 0.18/0.215/0.25 mg-35 mcg (28) Tablet 1 tab PO QPM ondansetron HCl [Zofran] 4 mg tablet 4 mg PO Q6H PRN (Reason: nausea and vomiting) Qty: 10 0RF ondansetron 4 mg tablet,disintegrating 4 mg PO TID-QID PRN (Reason: nausea and vomiting) Qty: 10 0RF sumatriptan [Imitrex] 20 mg/actuation spray,non-aerosol 20 mg intranasal Q2H PRN (Reason: migraine headache) Qty: 6 0RF Rx Instructions: administer into one nostril as a single dose; if 2nd dose needed,administer into other nostril after at least 2 hrs, NTE 2 doses (40 mg) per episode methylprednisolone [Medrol (Haider)] 4 mg tablets,dose pack See Rx Instructions .ROUTE .COMPLEX Qty: 21 0RF Rx Instructions: orally per package directions methylprednisolone [Medrol (Haider)] 4 mg tablets,dose pack 4 mg PO DAILY Qty: 21 0RF phenazopyridine [Pyridium] 200 mg tablet 200 mg PO TID PRN (Reason: pain) Qty: 6 0RF Referrals: Alexus Tejada DO [Primary Care Provider] - Sally Patterson PA-C [Non-Staff] - Stand Alone Forms: Patient Portal/API <Florencio Kumar DO - Last Filed: 01/29/23 19:08> [facility] Cosignature Attestation: I was immediately available in the department for consultation. This documentation has been reviewed and I agree with assessment and plan. Supervised by Florencio Kumar DO
[2023-01-28 17:48] LABS: RBC Urine 1-5/HPF (0-5/HPF); WBC Urine 0-1/HPF (0-5/HPF)
[2023-01-28 17:49] LABS: Amorphous Sediment Urine 2+; Bacteria Urine Few (2-10); Culture Indicated Urine Cult Not Indicated; Squamous Epithelial Cell Urine 0-1 /HPF (0-5/HPF)
--- NOTE | 2023-01-28 18:19 | DI.CT.S_ITS ---
PROCEDURE: CT ABDOMEN PELVIS W CON INDICATIONS: rt flank pain TECHNIQUE: After the administration of oral and IV contrast, axial sections were acquired from the lung bases to the pubic symphysis. Coronal and sagittal reformats were performed. For radiation dose reduction, the following was used: automated exposure control, adjustment of mA and/or kV according to patient size. COMPARISON: [facility], CT, CT KUB, 10/01/2022, 2:28. [facility], CT, CT ABDOMEN PELVIS W CON, 07/12/2020, 6:11. FINDINGS: Image quality: Excellent. Lung bases: Unremarkable. Heart: No significant findings. ABDOMEN: Liver: Small cyst in the right lobe of the liver, similar. Gallbladder: Not distended. Biliary ducts: Unremarkable. Pancreas: Unremarkable. Spleen: Unremarkable. Adrenal Glands: Unremarkable. Kidneys and Ureters: No hydronephrosis. Stone in the right renal pelvis measuring 0.7 cm, (2/36), previously 0.6 cm. Simple cyst at the left kidney. Stomach and Bowel: Stomach, small bowel loops, and colon are unremarkable. The appendix is not seen. Peritoneum: Somewhat prominent stool in the right colon. Ventral Wall: No hernia. Abdominal Nodes: No retroperitoneal or mesenteric adenopathy by size criteria. Vessels: Aorta and inferior vena cava are normal in size. PELVIS: Pelvic Organs: Anteverted uterus. Clips in the region of the adnexa bilaterally. Probable small right ovarian cyst measuring 2.1 cm, (2/67). Bladder: Unremarkable. Pelvic Nodes: No enlarged lymph nodes. Miscellaneous: No inguinal hernias are seen. Bones: No suspicious lesion. IMPRESSION: 1. Small stone in the right renal pelvis measuring 0.7 cm is not significantly changed. No hydronephrosis. 2. Possible small right ovarian cyst. Dictated by: Nona Oconnor M.D. on 01/28/2023 at 19:49 Approved by: Fareed Benitez M.D. on 01/28/2023 at 20:46
[2023-01-28 18:28] LABS: Add Manual Diff / Slide Review NO; Basophils Absolute Auto 0 /uL (0-100); Basophils Percent Auto 0.6 % (0-2); Eosinophils Absolute Auto 100 /uL (0-450); Eosinophils Percent Auto 1.7 % (2-4); Hematocrit 34.9 % (36-46); Hemoglobin 11.8 g/dL (12.0-16.0); Lymphocytes Absolute Auto 1200 /uL (1100-4500); Mean Corpuscular Hemoglobin 31.5 PG (26-34); Mean Corpuscular Volume 92.7 fL (80-100); Monocytes Absolute Auto 300 /uL (0-900); Monocytes Percent Auto 6.6 % (3-14); Neutrophils Absolute Auto 3200 /uL (1500-7000); Neutrophils Percent Auto 66.1 % (50-75); Platelet Count 250 X10^3/uL (150-400); Red Blood Cell Count 3.76 X10^6/uL (4.0-5.2); Red Cell Distribution Width 13.9 % (11.6-14.8); White Blood Cell Count 4.8 X10^3/uL (4.5-11.0)
[2023-01-28] MEDS: ONDANSETRON 4 MG/2 ML INJ IV (18:28)
[2023-01-28] MEDS: HYDROMORPHONE 0.5 MG INJ IV (18:28)
[2023-01-28] MEDS: SODIUM CHLORIDE 0.9% 1,000 ML 1000 ML IV (18:33)
[2023-01-28 18:34] LABS: Lactate (Lactic Acid) 1.3 mmol/L (0.7-2.1)
[2023-01-28 18:39] LABS: Alanine Aminotransferase 23 IU/L (<35); Albumin Globulin Ratio 1.3 (1.0-2.8); Alkaline Phosphatase 65 U/L (38-126); Aspartate Aminotransferase 29 IU/L (14-36); BUN Creatinine Ratio 15.9 (6-22); Bilirubin Total 0.3 mg/dL (0.2-1.3); Blood Urea Nitrogen 11 mg/dL (7-17); C-Reactive Protein Quant < 0.5 mg/dL (<1.0); Carbon Dioxide 28 mmol/L (22-32); Chloride 104 mmol/L (98-107); Estimated Glomerular Filt Rate > 60 mL/min (>60); Globulin 3.1 g/dL (1.7-4.1); Glucose 110 mg/dL (70-100); HEMOLYSIS < 15 (0-50); Lipase 88 U/L (23-300); Potassium 3.9 mmol/L (3.4-5.1); Sodium 138 mmol/L (137-145); Total Protein 7.1 g/dL (6.3-8.2)
[2023-01-28] MEDS: NITROFURANTOIN ER 100 MG CAPSULE PO (19:18)
[2023-01-28] MEDS: OXYCODONE/ACETAMINOPHEN 5/325 TABLET 1 TAB PO (19:51)
[2023-01-28 21:18] LABS: Urine N gonorrhoeae NOT DETECTED
[2023-01-28 21:19] LABS: Urine Chlamydia NOT DETECTED
[2023-01-28] MEDS: OXYCODONE/APAP 5/325 PREPACK 1 BOTTLE MISC (21:20)
== END 2023-01-28 21:24 | disposition home or self-care (01) ==
PROVIDERS: Nurse Practitioner Critical Care Medicine; Emergency Provider Emergency Medicine; Family Provider Family Medicine; PCP Family Medicine
DX: N20.0 Calculus of kidney (principal)
CPT/HCPCS: 74177; 80053; 81003; 81015; 81025; 83605; 83690; 85025; 86140; 87086; 87210; 87491; 87591; 96374; 96375; 99284; J1170; J2405; Q9967

== ENCOUNTER 2023-02-17 21:34 | Emergency (ER) | payer OTHER, MEDICAID, SELFPAY ==
[2023-02-17 21:46] VITALS: BP 133/80; PULSE 83; RESP 16; TEMP 36.6; O2SAT 97; BMI 22.3
--- NOTE | 2023-02-17 22:42 | ED_ITS ---
HPI - Female Genitourinary General Chief complaint: Urogenital-Female Stated complaint: not feeling good Time Seen by Provider: 02/17/23 22:47 Source: patient Mode of arrival: Ambulatory History of Present Illness HPI Narrative: 37-year-old female smoker with history of UTIs and kidney stones presents with a chief complaint of at least 2 days of dysuria, frequency and urgency as well as suprapubic tenderness and bilateral flank pain. She is been having symptoms off and on for a few months and has an upcoming appointment with Urology. She went to her primary care provider earlier today and had a urine which is positive for white blood cells, hematuria, leukocyte esterase and was written a prescription for Cipro, she was unable to get it filled due to reason she would prefer not to get into. She states her last period was in June or July. She denies chest pain or shortness of breath. She is not dizzy nor weak or lightheaded. She denies any vaginal bleeding or discharge. She has had kidney stones in the past, most recently on the right side but states this feels different. Related Data Home Medications Medication Instructions Recorded Confirmed lamotrigine 25 mg tablet 25 mg PO BID 12/06/19 09/05/21 norgestimate-ethinyl estradiol 1 tab PO QPM 12/06/19 09/05/21 0.18 mg/0.215mg/0.25mg-35 mcg(28)tablet (Ortho Tri-Cyclen (28)) trazodone 50 mg tablet 150 mg PO BEDTIME PRN Sleep 12/06/19 09/05/21 Previous Rx's Medication Instructions Recorded ondansetron HCl 4 mg tablet 4 mg PO Q6H PRN nausea and 03/06/21 (Zofran) vomiting #10 tabs ondansetron 4 mg disintegrating 4 mg PO TID-QID PRN nausea and 03/09/21 tablet vomiting #10 tabs sumatriptan 20 mg/actuation nasal 20 mg intranasal Q2H PRN migraine 08/17/21 spray (Imitrex) headache #6 ea cyclobenzaprine 10 mg tablet 10 mg PO BID PRN muscle spasm #28 09/03/21 tabs diclofenac sodium 1 % topical gel 2 g topical QID #100 grams 09/03/21 methylprednisolone 4 mg tablets in See Rx Instructions PO .COMPLEX 09/05/21 a dose pack (Medrol (Haider)) #21 ea methylprednisolone 4 mg tablets in 4 mg PO DAILY #21 ea 09/24/21 a dose pack (Medrol (Haider)) phenazopyridine 200 mg tablet 200 mg PO TID PRN pain 6 doses #6 10/20/21 (Pyridium) tabs ibuprofen 800 mg tablet 800 mg PO TID PRN pain #30 tabs 01/28/23 oxycodone 5 mg tablet 5 mg PO Q6H PRN pain #10 tabs 01/28/23 ciprofloxacin HCl 500 mg tablet 500 mg PO BID #20 tabs 02/18/23 (Cipro) hydrocodone 5 mg-acetaminophen 325 1 tab PO Q4-6H PRN pain #10 tabs 02/18/23 mg tablet ketorolac 10 mg tablet 10 mg PO Q6H PRN pain #14 tabs 02/18/23 tamsulosin 0.4 mg capsule (Flomax) 0.4 mg PO DAILY #30 caps 02/18/23 Allergies Allergy/AdvReac Type Severity Reaction Status Date / Time ketorolac [From Toradol] Allergy Rash Verified 01/28/23 16:49 prochlorperazine AdvReac Verified 01/28/23 16:49 [From Compazine] Review of Systems Review of Systems Narrative: GENERAL: See HPI HEENT: Denies sinus pain, ear pain, sore throat, difficulty swallowing, dizziness. RESPIRATORY: Denies dyspnea, cough, wheezing, hemoptysis, sputum. CARDIOVASCULAR: Denies chest pain, palpitations, orthopnea, edema, GASTROINTESTINAL: See HPI : See HP MUSCULOSKELETAL: denies weakness, joint pain, or bony pain SKIN: Denies rash, skin lesions, or other NEUROLOGIC: Denies weakness, headache, numbness, change in speech, confusion, seizures, incoordination. PSYCHIATRIC: No concerning psychosocial issues. 12 point review of systems is negative except for those stated above Patient History Medical History Kidney stones Migraine tobacco type: vaping alcohol intake frequency: other Substance Use Type: does not use Exam Narrative Exam Narrative: GENERAL: [37] year old patient appears stated age. Well-developed patient, in mild distress. Tearful HEAD: Atraumatic. Normocephalic. EYES: Pupils equal round and reactive. Extraocular motions intact. No scleral icterus. No injection or drainage. ENT: Nose without bleeding, purulent drainage. Throat without erythema, tonsillar hypertrophy or exudate. Airway patent. NECK: Trachea midline. Non tender CARDIOVASCULAR: Regular rate and rhythm without murmurs, gallops, or rubs. RESPIRATORY: Clear to auscultation. Breath sounds equal bilaterally. No wheezes, rales, or rhonchi. GASTROINTESTINAL: Abdomen soft, mild suprapubic tenderness, nondistended. EXTREMITIES: No edema or joint tenderness. BACK: Bilateral flank tenderness NEURO: AOx3. SKIN: No rash or erythema of visible areas Initial Vital Signs Initial Vital Signs: Vital Signs Temperature 97.8 F 02/17/23 21:46 Pulse Rate 83 02/17/23 21:46 Respiratory Rate 16 02/17/23 21:46 Blood Pressure 133/80 02/17/23 21:46 Pulse Oximetry 97 02/17/23 21:46 Oxygen Delivery Method Room Air 02/17/23 21:46 Course Orders Ordered: ED Orders 02/17/23 22:55 US renal complete Stat 02/17/23 23:06 Urine Culture Stat Urine Microscopic Stat 02/17/23 23:59 Blood Culture Stat Complete Blood Count AUTO DIFF Stat Comprehensive Metabolic Panel Stat Lactate (Lactic Acid) Stat Discontinued Medications Hydrocodone Bitart/Acetaminophen (Hydrocodone/Acet 5/325 Prepack) 1 bottle MISC SEEINSTR ONE Stop: 02/18/23 03:45 Last Admin: 02/18/23 04:08 Dose: 1 bottle Documented By: MELY Hydromorphone HCl (Hydromorphone 0.5 Mg Inj) 0.5 mg IV NOW ONE Stop: 02/18/23 00:08 Last Admin: 02/18/23 00:11 Dose: 0.5 mg Documented By: ORTIZ Sodium Chloride (Normal Saline 0.9%) 1,000 mls @ 1,000 mls/hr IV BOLUS ONE Stop: 02/18/23 00:34 Last Infusion: 02/18/23 01:30 Dose: 0 mls/hr Documented By: Admin: 02/18/23 00:07 Dose: 1,000 mls/hr Documented By: ORTIZ Levofloxacin (Levaquin) 750 mg in 150 mls @ 100 mls/hr IV NOW ONE Stop: 02/18/23 03:23 Last Infusion: 02/18/23 03:57 Dose: 0 mls/hr Documented By: Admin: 02/18/23 02:21 Dose: 100 mls/hr Documented By: BETH Ondansetron HCl (Ondansetron 4 Mg Odt Prepack) 1 bottle MISC SEEINSTR ONE Stop: 02/17/23 22:56 Last Admin: 02/17/23 23:09 Dose: 1 bottle Documented By: ORTIZ Consultations Consultation #1: discussed with occupational health coordinator urology at [facility]. We discussed the patient's clinical course at length including relative chronicity of this stone which he notes on their records, today's urine, lack of septic findings, stable vital signs and minimal hydro on imaging. He recommends treatment with antibiotics, pain control, antiemetics, no need for hospitalization or transfer, encouraged his close follow-up Vital Signs Vital signs: Vital Signs - 8 hr 02/17/23 21:46 02/18/23 02:31 02/18/23 02:36 Temperature 97.8 F Pulse Rate 83 60 54 L Respiratory Rate 16 18 Blood Pressure 133/80 126/84 Pulse Oximetry 97 100 98 Oxygen Delivery Method Room Air 02/18/23 03:00 02/18/23 03:00 02/18/23 03:30 Temperature Pulse Rate 53 L Respiratory Rate Blood Pressure 113/77 109/73 Pulse Oximetry 99 Oxygen Delivery Method 02/18/23 03:30 Temperature Pulse Rate 66 Respiratory Rate Blood Pressure Pulse Oximetry 98 Oxygen Delivery Method MDM - Female Genitourinary Lab Data 02/17/23 23:59 02/17/23 23:59 Labs: Lab Results 02/17/23 02/17/23 02/17/23 Range/Units 23:06 23:59 23:59 WBC 8.6 (4.5-11.0) X10^3/uL RBC 3.50 L (4.0-5.2) X10^6/uL Hgb 11.1 L (12.0-16.0) g/dL Hct 32.5 L (36-46) % MCV 92.8 (80-100) fL MCH 31.9 (26-34) PG MCHC 34.3 (30-36) % RDW 13.2 (11.6-14.8) % Plt Count 203 (150-400) X10^3/uL Neut % (Auto) 78.3 H (50-75) % Lymph % (Auto) 16.3 L (25-40) % [place] % (Auto) 4.3 (3-14) % Eos % (Auto) 0.6 L (2-4) % Baso % (Auto) 0.5 (0-2) % Neut # (Auto) 6700 (1007-4672) /uL Lymph # (Auto) 1400 (1362-7132) /uL [place] # (Auto) 400 (0-900) /uL Eos # (Auto) 100 (0-450) /uL Baso # (Auto) 0 (0-100) /uL Sodium 136 L (137-145) mmol/L Potassium 3.6 (3.4-5.1) mmol/L Chloride 100 (98-107) mmol/L Carbon Dioxide 28 (22-32) mmol/L BUN 8 (7-17) mg/dL Creatinine 0.66 (0.52-1.04) mg/dL Estimated GFR > 60 (>60) mL/min BUN/Creatinine Ratio 12.1 (6-22) Glucose 85 (70-100) mg/dL Lactate (0.7-2.1) mmol/L Calcium 8.8 (8.4-10.2) mg/dL Total Bilirubin 0.5 (0.2-1.3) mg/dL AST 30 (14-36) IU/L ALT 24 (<35) IU/L Alkaline Phosphatase 60 (38-126) U/L Total Protein 7.0 (6.3-8.2) g/dL Albumin 4.2 (3.5-5.0) g/dL Globulin 2.8 (1.7-4.1) g/dL Albumin/Globulin Ratio 1.5 (1.0-2.8) Urine RBC 0-1/hpf (0-5/HPF) Urine WBC 10-30/hpf H (0-5/HPF) Ur Squamous Epith Cells 0-1 /hpf (0-5/HPF) Urine Bacteria Few (2-10) H (None) Ur Culture Indicated? Specimen cultured 02/17/23 Range/Units 23:59 WBC (4.5-11.0) X10^3/uL RBC (4.0-5.2) X10^6/uL Hgb (12.0-16.0) g/dL Hct (36-46) % MCV (80-100) fL MCH (26-34) PG MCHC (30-36) % RDW (11.6-14.8) % Plt Count (150-400) X10^3/uL Neut % (Auto) (50-75) % Lymph % (Auto) (25-40) % [place] % (Auto) (3-14) % Eos % (Auto) (2-4) % Baso % (Auto) (0-2) % Neut # (Auto) (9358-8941) /uL Lymph # (Auto) (9750-4315) /uL [place] # (Auto) (0-900) /uL Eos # (Auto) (0-450) /uL Baso # (Auto) (0-100) /uL Sodium (137-145) mmol/L Potassium (3.4-5.1) mmol/L Chloride (98-107) mmol/L Carbon Dioxide (22-32) mmol/L BUN (7-17) mg/dL Creatinine (0.52-1.04) mg/dL Estimated GFR (>60) mL/min BUN/Creatinine Ratio (6-22) Glucose (70-100) mg/dL Lactate 0.6 L (0.7-2.1) mmol/L Calcium (8.4-10.2) mg/dL Total Bilirubin (0.2-1.3) mg/dL AST (14-36) IU/L ALT (<35) IU/L Alkaline Phosphatase (38-126) U/L Total Protein (6.3-8.2) g/dL Albumin (3.5-5.0) g/dL Globulin (1.7-4.1) g/dL Albumin/Globulin Ratio (1.0-2.8) Urine RBC (0-5/HPF) Urine WBC (0-5/HPF) Ur Squamous Epith Cells (0-5/HPF) Urine Bacteria (None) Ur Culture Indicated? Point of Care Testing Test Results Negative Urine Dip Bedside Urine Glucose Negative Bedside Urine Bilirubin + 1 Bedside Urine Ketone - Negative Urine Specific [place] 1.010 Bedside Urine Occult Blood +++ Bedside Urine pH 6.5 Bedside Urine Protein - Negative Bedside Urine Urobilinogen +/- 1mg Bedside Urine Nitrite + Positive Bedside Urine Leukocytes ++ 125 Esterase MDM Narrative Medical decision making narrative: [37] year old patient presents with UTI symptoms with subjective fever, nausea, suprapubic pain and bilateral flank pain Multiple etiologies for patient's symptoms considered including, but not limited to: [Cystitis, pyelonephritis, kidney stone versus other] Prior Charts reviewed in our EMR Primary Historian: patient Labs reviewed and interpreted by myself: Urine convincing for UTI, mild leukocytosis and relative left shift, electrolytes and renal function within normal limits. Imaging reviewed: 1.2 cm proximal ureteral stone with mild hydro, largely unchanged from prior imaging few weeks ago Consultations: Discussed with Urology, CT details above Patient's symptoms improved over duration of stay with above-stated therapies. Findings and discharge diagnosis discussed with patient/family followed by verbalization of understanding Return precautions discussed with patient/family whom verbalize understanding of diagnosis and plan Discharge Plan Departure Patient Disposition: Home Clinical Impression: Pyelonephritis, Kidney calculus Instructions: DI for Kidney Infection, DI for Kidney Stones Activity Restrictions/Additional Instructions: *You have been diagnosed with [kidney stone and urinary tract infection] *What to do: *Please continue to take your regular medications as directed. *Please follow up with your urologist as soon as possible, I spoke with the occupational health coordinator urologist for the [email or web address] and he is happy for you to go home, but wants you to follow up closely with their clinic. Please call the office early in the morning, let them know that you were seen in the emergency department and we would like you seen in follow-up *Return to Emergency Department if you should have any new, worsening or concerning symptoms, such as [fever greater than 101 F, shaking chills, worsening pain, persistent vomiting or other bothersome symptoms] Prescriptions: New hydrocodone-acetaminophen 5-325 mg tablet 1 tab PO Q4-6H PRN (Reason: pain) Qty: 10 0RF ketorolac 10 mg tablet 10 mg PO Q6H PRN (Reason: pain) Qty: 14 0RF tamsulosin [Flomax] 0.4 mg capsule 0.4 mg PO DAILY Qty: 30 0RF ciprofloxacin HCl [Cipro] 500 mg tablet 500 mg PO BID Qty: 20 0RF No Action cyclobenzaprine 10 mg tablet 10 mg PO BID PRN (Reason: muscle spasm) Qty: 28 0RF Rx Instructions: may make drowsy, do not drive during therapy diclofenac sodium 1 % gel 2 g topical QID Qty: 100 0RF Rx Instructions: apply to neck area. Do not use with other NSAIDs trazodone 50 mg Tablet 150 mg PO BEDTIME PRN (Reason: Sleep) lamotrigine 25 mg Tablet 25 mg PO BID norgestimate-ethinyl estradiol [Ortho Tri-Cyclen (28)] 0.18/0.215/0.25 mg-35 mcg (28) Tablet 1 tab PO QPM ondansetron HCl [Zofran] 4 mg tablet 4 mg PO Q6H PRN (Reason: nausea and vomiting) Qty: 10 0RF ondansetron 4 mg tablet,disintegrating 4 mg PO TID-QID PRN (Reason: nausea and vomiting) Qty: 10 0RF sumatriptan [Imitrex] 20 mg/actuation spray,non-aerosol 20 mg intranasal Q2H PRN (Reason: migraine headache) Qty: 6 0RF Rx Instructions: administer into one nostril as a single dose; if 2nd dose needed,administer into other nostril after at least 2 hrs, NTE 2 doses (40 mg) per episode methylprednisolone [Medrol (Haider)] 4 mg tablets,dose pack See Rx Instructions .ROUTE .COMPLEX Qty: 21 0RF Rx Instructions: orally per package directions methylprednisolone [Medrol (Haider)] 4 mg tablets,dose pack 4 mg PO DAILY Qty: 21 0RF phenazopyridine [Pyridium] 200 mg tablet 200 mg PO TID PRN (Reason: pain) Qty: 6 0RF ibuprofen 800 mg tablet 800 mg PO TID PRN (Reason: pain) Qty: 30 0RF oxycodone 5 mg tablet 5 mg PO Q6H PRN (Reason: pain) Qty: 10 0RF Referrals: Alexus Tejada DO [Primary Care Provider] - Sally Patterson PA-C [Non-Staff] - Stand Alone Forms: Patient Portal/API
--- NOTE | 2023-02-17 22:55 | DI.US.S_ITS ---
PROCEDURE: US RENAL COMPLETE INDICATIONS: FLANK PAIN; HX STONES TECHNIQUE: Real-time scanning was performed of the kidneys and bladder, with image documentation. COMPARISON: [facility], , RENAL COMPLETE, 03/09/2021, 20:27. FINDINGS: Kidneys: Right kidney measures 9.5 cm long; left kidney measures 12.4 cm long. Right renal cortical thickness is 1.9 cm; left renal cortical thickness is 2.3 cm. Right kidney demonstrates mild hydronephrosis. There is a urinary stone in the renal pelvis or proximal ureter measuring up to 1.2 cm. There is a left extrarenal pelvis which appears mildly dilated. Bladder: Urinary bladder is nondistended limiting evaluation. Miscellaneous: No free pelvic fluid. IMPRESSION: 1. Mild right hydronephrosis with a urinary stone in the renal pelvis or proximal ureter. 2. Mildly dilated left extrarenal pelvis. Dictated by: James Del Rio M.D. on 02/18/2023 at 0:59 Approved by: James Del Rio M.D. on 02/18/2023 at 1:03
[2023-02-17] MEDS: ONDANSETRON 4 MG ODT PREPACK 1 BOTTLE MISC (23:09)
[2023-02-17 23:33] LABS: RBC Urine 0-1/HPF (0-5/HPF); WBC Urine 10-30/HPF (0-5/HPF)
[2023-02-17 23:34] LABS: Bacteria Urine Few (2-10); Culture Indicated Urine Specimen Cultured; Squamous Epithelial Cell Urine 0-1 /HPF (0-5/HPF)
[2023-02-18] MEDS: SODIUM CHLORIDE 0.9% 1,000 ML 1000 ML IV (00:07)
[2023-02-18] MEDS: HYDROMORPHONE 0.5 MG INJ IV (00:11)
[2023-02-18 00:16] LABS: Add Manual Diff / Slide Review NO; Basophils Absolute Auto 0 /uL (0-100); Basophils Percent Auto 0.5 % (0-2); Eosinophils Absolute Auto 100 /uL (0-450); Eosinophils Percent Auto 0.6 % (2-4); Hematocrit 32.5 % (36-46); Hemoglobin 11.1 g/dL (12.0-16.0); Lymphocytes Absolute Auto 1400 /uL (1100-4500); Lymphocytes Percent Auto 16.3 % (25-40); Mean Corpuscular HGB Conc 34.3 % (30-36); Mean Corpuscular Hemoglobin 31.9 PG (26-34); Mean Corpuscular Volume 92.8 fL (80-100); Monocytes Absolute Auto 400 /uL (0-900); Monocytes Percent Auto 4.3 % (3-14); Neutrophils Absolute Auto 6700 /uL (1500-7000); Neutrophils Percent Auto 78.3 % (50-75); Platelet Count 203 X10^3/uL (150-400); Red Cell Distribution Width 13.2 % (11.6-14.8); White Blood Cell Count 8.6 X10^3/uL (4.5-11.0)
[2023-02-18 00:32] LABS: Alanine Aminotransferase 24 IU/L (<35); Albumin 4.2 g/dL (3.5-5.0); Albumin Globulin Ratio 1.5 (1.0-2.8); Alkaline Phosphatase 60 U/L (38-126); Aspartate Aminotransferase 30 IU/L (14-36); BUN Creatinine Ratio 12.1 (6-22); Bilirubin Total 0.5 mg/dL (0.2-1.3); Blood Urea Nitrogen 8 mg/dL (7-17); Calcium 8.8 mg/dL (8.4-10.2); Carbon Dioxide 28 mmol/L (22-32); Chloride 100 mmol/L (98-107); Estimated Glomerular Filt Rate > 60 mL/min (>60); Globulin 2.8 g/dL (1.7-4.1); Glucose 85 mg/dL (70-100); HEMOLYSIS < 15 (0-50); Potassium 3.6 mmol/L (3.4-5.1); Sodium 136 mmol/L (137-145)
[2023-02-18 00:33] LABS: Lactate (Lactic Acid) 0.6 mmol/L (0.7-2.1)
[2023-02-18] MEDS: levoFLOXacin 750 MG/150 ML PIGGYBACK 100 MG IV (02:21)
[2023-02-18 02:31] VITALS: BP 126/84; PULSE 60; RESP 18; O2SAT 100
[2023-02-18 02:36] VITALS: PULSE 54; O2SAT 98
[2023-02-18 03:00] VITALS: BP 113/77; PULSE 53; O2SAT 99
[2023-02-18 03:30] VITALS: BP 109/73; PULSE 66; O2SAT 98
[2023-02-18] MEDS: HYDROCODONE/ACET 5/325 PREPACK 1 BOTTLE MISC (04:08)
== END 2023-02-18 04:13 | disposition home or self-care (01) ==
PROVIDERS: Emergency Provider Emergency Medicine; Family Provider Family Medicine; PCP Family Medicine
DX: N20.0 Calculus of kidney (principal); N12 Tubulo-interstitial nephritis, not specified as acute or chronic
CPT/HCPCS: 36415; 76770; 80053; 81003; 81015; 81025; 83605; 85025; 87040; 87086; 96361; 96365; 96366; 96375; 99284; J1170; J1956

== ENCOUNTER 2024-04-07 13:22 | Emergency (ER) | payer OTHER, MEDICAID, SELFPAY ==
[2024-04-07 13:35] VITALS: BP 151/89; PULSE 106; RESP 16; TEMP 36.6; O2SAT 100; BMI 20.7
[2024-04-07 16:02] LABS: Bacteria Urine Moderate (10-30); RBC Urine 30-100/HPF (0-5/HPF); Urine Volume 10mL (spun); WBC Urine 30-100/HPF (0-5/HPF)
[2024-04-07 16:03] LABS: Calcium Oxalate Crystals Urine Few; Culture Indicated Urine Specimen Cultured; Squamous Epithelial Cell Urine 1-5 /HPF (0-5/HPF)
[2024-04-07 16:39] VITALS: BP 135/89; PULSE 84; RESP 16; O2SAT 99
[2024-04-07 17:34] LABS: Add Manual Diff / Slide Review NO; Basophils Absolute Auto 100 /uL (0-100); Basophils Percent Auto 0.6 % (0-2); Eosinophils Absolute Auto 0 /uL (0-450); Eosinophils Percent Auto 0.2 % (2-4); Hematocrit 33.9 % (36-46); Hemoglobin 11.8 g/dL (12.0-16.0); Lymphocytes Absolute Auto 1200 /uL (1100-4500); Lymphocytes Percent Auto 11.8 % (25-40); Mean Corpuscular HGB Conc 34.8 % (30-36); Monocytes Absolute Auto 300 /uL (0-900); Monocytes Percent Auto 2.9 % (3-14); Neutrophils Absolute Auto 8300 /uL (1500-7000); Neutrophils Percent Auto 84.5 % (50-75); Platelet Count 301 X10^3/uL (150-400); Red Blood Cell Count 3.69 X10^6/uL (4.0-5.2); Red Cell Distribution Width 12.4 % (11.6-14.8); White Blood Cell Count 9.8 X10^3/uL (4.5-11.0)
[2024-04-07 18:02] LABS: Alanine Aminotransferase 18 IU/L (<35); Albumin 4.1 g/dL (3.5-5.0); Albumin Globulin Ratio 1.3 (1.0-2.8); Alkaline Phosphatase 80 U/L (38-126); Aspartate Aminotransferase 30 IU/L (14-36); Bilirubin Total 0.5 mg/dL (0.2-1.3); Blood Urea Nitrogen 8 mg/dL (7-17); Calcium 8.8 mg/dL (8.4-10.2); Carbon Dioxide 28 mmol/L (22-32); Chloride 106 mmol/L (98-107); Estimated Glomerular Filt Rate > 60 mL/min (>60); Globulin 3.2 g/dL (1.7-4.1); Glucose 92 mg/dL (70-100); HEMOLYSIS < 15 (0-50); Potassium 3.7 mmol/L (3.4-5.1); Sodium 137 mmol/L (137-145); Total Protein 7.3 g/dL (6.3-8.2)
[2024-04-07] MEDS: ONDANSETRON 4 MG/2 ML INJ IV (19:17)
--- NOTE | 2024-04-07 19:23 | ED.FEMALEGU ---
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 She states she was hospitalized at [facility] but they kept putting off her surgery for cystoscopy and stent. Patient states she was ultimately discharged home. Patient states since then she has been having significant persistent pain. She states that she is on Suboxone she has been taking oxycodone orally as well as Zofran. She has had nausea and vomiting on and off. She states she has had dysuria urgency and frequency on and off and sense of urinary has not tense in the on and off as well. She states now she is pain on both sides. States in her anterior abdomen as well as lower back. She states feels like her kidneys and she states she did finish a prescription for ciprofloxacin in February. She states she is frequently found to have UTIs supposed to have cystoscopy to evaluate for this. Patient was go to OR but her case was pushed back and she ultimately decided to discharge and leave against medical advice from the hospital she was there from 03/06-03/07. Patient states she is trying to establish with a new urologist was called to come here by her primary care physician. Related Data Home Medications Medication Instructions Recorded Confirmed lamotrigine 25 mg tablet 25 mg PO BID 12/06/19 09/05/21 norgestimate-ethinyl estradiol 1 tab PO QPM 12/06/19 09/05/21 0.18 mg/0.215mg/0.25mg-35 mcg(28)tablet (Ortho Tri-Cyclen (28)) trazodone 50 mg tablet 150 mg PO BEDTIME PRN Sleep 12/06/19 09/05/21 Previous Rx's Medication Instructions Recorded ondansetron HCl 4 mg tablet 4 mg PO Q6H PRN nausea and 03/06/21 (Zofran) vomiting #10 tabs ondansetron 4 mg disintegrating 4 mg PO TID-QID PRN nausea and 03/09/21 tablet vomiting #10 tabs sumatriptan 20 mg/actuation nasal 20 mg intranasal Q2H PRN migraine 08/17/21 spray (Imitrex) headache #6 ea cyclobenzaprine 10 mg tablet 10 mg PO BID PRN muscle spasm #28 09/03/21 tabs diclofenac sodium 1 % topical gel 2 g topical QID #100 grams 09/03/21 methylprednisolone 4 mg tablets in See Rx Instructions PO .COMPLEX 09/05/21 a dose pack (Medrol (Haider)) #21 ea methylprednisolone 4 mg tablets in 4 mg PO DAILY #21 ea 09/24/21 a dose pack (Medrol (Haider)) phenazopyridine 200 mg tablet 200 mg PO TID PRN pain 6 doses #6 10/20/21 (Pyridium) tabs ibuprofen 800 mg tablet 800 mg PO TID PRN pain #30 tabs 01/28/23 oxycodone 5 mg tablet 5 mg PO Q6H PRN pain #10 tabs 01/28/23 ciprofloxacin HCl 500 mg tablet 500 mg PO BID #20 tabs 02/18/23 (Cipro) hydrocodone 5 mg-acetaminophen 325 1 tab PO Q4-6H PRN pain #10 tabs 02/18/23 mg tablet ketorolac 10 mg tablet 10 mg PO Q6H PRN pain #14 tabs 02/18/23 tamsulosin 0.4 mg capsule (Flomax) 0.4 mg PO DAILY #30 caps 02/18/23 ciprofloxacin HCl 500 mg tablet 500 mg PO Q12H 10 days #20 tabs 04/07/24 oxycodone 10 mg tablet 10 mg PO Q6H PRN pain #5 tabs 04/07/24 Allergies Allergy/AdvReac Type Severity Reaction Status Date / Time ketorolac [From Toradol] Allergy Rash Verified 04/07/24 13:39 prochlorperazine AdvReac Verified 04/07/24 13:39 [From Compazine] Review of Systems Review of Systems ROS Unobtainable: All systems reviewed & are unremarkable except as noted in HPI and below Patient History Medical History Migraine Kidney stones tobacco type: vaping alcohol intake frequency: other Substance Use Type: does not use and prescription drug Exam Narrative Exam Narrative: GENERAL: Alert and oriented x three, female mild distress. HEENT: Head normocephalic, atraumatic, EOMI, pupils reactive, face symmetric, moist mucous membranes NECK: Supple, full range of motion CARDIOVASCULAR: Regular rate and rhythm without murmurs, rubs or gallops. RESPIRATORY: Breath sounds equal bilaterally, no wheezes rales or rhonchi. ABDOMEN: Soft, generalized tenderness. Normoactive bowel sounds all 4 quadrants. No guarding or rebound, rigidity, no mass : Bilateral flank CVA tenderness EXTREMITIES: Normal range of motion, no clubbing or edema. Neurovascularly intact NEUROLOGICAL: Cranial nerves II through XII grossly intact. Moving all extremities SKIN: Warm, dry, no petechiae, no rashes or lesions. Initial Vital Signs Initial Vital Signs: Vital Signs Temperature 98 F 04/07/24 13:35 Pulse Rate 106 H 04/07/24 13:35 Respiratory Rate 16 04/07/24 13:35 Blood Pressure 151/89 H 04/07/24 13:35 Pulse Oximetry 100 04/07/24 13:35 Oxygen Delivery Method Room Air 04/07/24 13:35 Course Orders Ordered: Discontinued Medications Hydromorphone HCl (Hydromorphone 1 Mg Inj) 1 mg IV NOW ONE Stop: 04/07/24 19:35 Last Admin: 04/07/24 20:01 Dose: 1 mg Documented By: JARRED Hydromorphone HCl (Hydromorphone 0.5 Mg Inj) 0.5 mg IV NOW ONE Stop: 04/07/24 21:35 Last Admin: 04/07/24 21:41 Dose: 0.5 mg Documented By: TORIE Sodium Chloride (Normal Saline 0.9%) 1,000 mls @ 1,000 mls/hr IV BOLUS ONE Stop: 04/07/24 20:32 Last Infusion: 04/07/24 21:01 Dose: Infused Documented By: Admin: 04/07/24 20:01 Dose: 1,000 mls/hr Documented By: JARRED Ondansetron HCl (Ondansetron 4 Mg/2 Ml Inj) 4 mg IV NOW ONE Stop: 04/07/24 19:07 Last Admin: 04/07/24 19:17 Dose: 4 mg Documented By: TORIE Vital Signs Vital signs: Vital Signs - 8 hr 04/07/24 22:21 Temperature 98.8 F Pulse Rate 78 Respiratory Rate 18 Blood Pressure 130/80 Pulse Oximetry 96 Oxygen Delivery Method Room Air MDM - Female Genitourinary Lab Data 04/07/24 17:24 04/07/24 17:24 Labs: Lab Results 04/07/24 04/07/24 Range/Units 14:30 17:24 WBC 9.8 (4.5-11.0) X10^3/uL RBC 3.69 L (4.0-5.2) X10^6/uL Hgb 11.8 L (12.0-16.0) g/dL Hct 33.9 L (36-46) % MCV 92.0 (80-100) fL MCH 32.0 (26-34) PG MCHC 34.8 (30-36) % RDW 12.4 (11.6-14.8) % Plt Count 301 (150-400) X10^3/uL Neut % (Auto) 84.5 H (50-75) % Lymph % (Auto) 11.8 L (25-40) % [place] % (Auto) 2.9 L (3-14) % Eos % (Auto) 0.2 L (2-4) % Baso % (Auto) 0.6 (0-2) % Neut # (Auto) 8300 H (8512-5951) /uL Lymph # (Auto) 1200 (9962-5287) /uL [place] # (Auto) 300 (0-900) /uL Eos # (Auto) 0 (0-450) /uL Baso # (Auto) 100 (0-100) /uL Sodium 137 (137-145) mmol/L Potassium 3.7 (3.4-5.1) mmol/L Chloride 106 (98-107) mmol/L Carbon Dioxide 28 (22-32) mmol/L BUN 8 (7-17) mg/dL Creatinine 0.73 (0.52-1.04) mg/dL Estimated GFR > 60 (>60) mL/min BUN/Creatinine Ratio 11.0 (6-22) Glucose 92 (70-100) mg/dL Calcium 8.8 (8.4-10.2) mg/dL Total Bilirubin 0.5 (0.2-1.3) mg/dL AST 30 (14-36) IU/L ALT 18 (<35) IU/L Alkaline Phosphatase 80 (38-126) U/L Total Protein 7.3 (6.3-8.2) g/dL Albumin 4.1 (3.5-5.0) g/dL Globulin 3.2 (1.7-4.1) g/dL Albumin/Globulin Ratio 1.3 (1.0-2.8) Urine RBC 30-100/hpf H (0-5/HPF) Urine WBC 30-100/hpf H (0-5/HPF) Ur Squamous Epith Cells 1-5 /hpf (0-5/HPF) Calcium Oxalate Crystal Few H Urine Bacteria Moderate (10-30) H (None) Ur Culture Indicated? Specimen cultured Vol Urine Centrifuged 10ml (spun) Point of Care Testing Test Results Negative Urine Dip Bedside Urine Glucose Negative Bedside Urine Bilirubin - Negative Bedside Urine Ketone - Negative Urine Specific [place] 1.025 Bedside Urine Occult Blood +++ Bedside Urine pH 6.0 Bedside Urine Protein ++ 100 Bedside Urine Urobilinogen - Negative Bedside Urine Nitrite - Negative Bedside Urine Leukocytes + 70 Esterase Imaging Data renal us: Radiologist's Impression: [place] [address] Ultrasound Report Signed Patient: Kristine Renteria MR#: [id number] : 1985 Acct:[id number] Age/Sex: 38 / F Date of Service: 04/07/24 Loc: ED Accession Number: [id number] Procedure: US renal complete Ordering Provider: Kamilla Malcolm D.O. PROCEDURE: US RENAL COMPLETE INDICATIONS: kidney stone 1.4cm on left since february, pain b/l TECHNIQUE: Real-time scanning was performed of the kidneys and bladder, with image documentation. COMPARISON: [facility], CT, CT IVP, 03/06/2024, 22:03. [facility], US, US RENAL COMPLETE, 02/17/2023, 23:23. FINDINGS: Kidneys: Kidneys are normal in size. Right kidney measures 10.6 cm long; left kidney measures 12.4 cm long. Right renal cortical thickness is 1.6 cm; left renal cortical thickness is 1.2 cm. Renal cortical echotexture is normal. There is a renal stone noted in the right ureteropelvic junction with associated mild right hydronephrosis. This was seen on prior CT. No left hydronephrosis or nephrolithiasis. No suspicious solid mass lesions. Left renal cyst noted. Bladder: Pre-void bladder volume is 170 mL. Post-void residual is 1 mL. Pre-void images demonstrate no intraluminal masses or stones. Small amount of debris along the posterior aspect of the urinary bladder wall. On pre-void images, bilateral ureteral jets were not seen with color Doppler interrogation. (Of note, ureteral jets may not be detectable in up to 25% of cases due to insufficient differences in specific gravity between ureteral and bladder urine). Miscellaneous: No free pelvic fluid. IMPRESSION: 1. Redemonstration of an obstructing 1.6 cm right ureteropelvic junction stone with associated mild right hydronephrosis. 2. No left-sided obstructive uropathy. 3. Mild amount of debris within the urinary bladder possibly related to cystitis if clinically appropriate. Dictated by: Lobo Riggs M.D. on 04/07/2024 at 21:36 Approved by: Lobo Riggs M.D. on 04/07/2024 at 21:41 MDM Narrative Medical decision making narrative: Labs show white count of 9.8 hemoglobin 11.8 platelets of 301, chemistry shows electrolytes are appropriate malfunction 0.73. Urine preg is negative. Point of care urine shows protein and leukocyte esterase. Micro shows 3200 RBCs, 30 100 WBCs 1-5 squamous, few calcium oxalate, moderate bacteria Ultrasound as patient is adverse to having CT abdomen pelvis. Renal ultrasound shows 1.6 cm right ureteropelvic junction stone associated mild right hydro no left-sided obstructive uropathy mild amount of debris and bladder related to cystitis likely. Patient's notes from her emergency room visit on 03/06/2024 were reviewed. Zofran, fluids and pain medications were given patient had some improvement was given additional dose here. She is requesting to return home. I did speak with Urology, Dr. Vinson, patient is felt appropriate for discharge home nontoxic nonseptic patient is not having any vomiting here in the department. She is appears fairly comfortable phone. He asked that we have the patient call tomorrow so that they can set up short term follow-up for treatment of patient's symptoms. Plan to discharge home with antibiotics. Patient feels comfortable with this plan. Discharge Plan Departure Patient Disposition: Home Clinical Impression: Kidney stone on right side Instructions: DI for Kidney Stones Activity Restrictions/Additional Instructions: Follow-up with Dr. Vinson is office, he asks that you call tomorrow morning to set up follow up appointment for treatment. The contact information is included below. Continue your home medications as prescribed. Start the antibiotic prescribed. A prescription for oral antibiotic has been sent to Please return for fevers, new or worsening abdominal back or flank pain, persistent vomiting, worsening symptoms or other new or concerning changes Prescriptions: New ciprofloxacin HCl 500 mg tablet 500 mg PO Q12H 10 Days Qty: 20 0RF oxycodone 10 mg tablet 10 mg PO Q6H PRN (Reason: pain) Qty: 5 0RF No Action cyclobenzaprine 10 mg tablet 10 mg PO BID PRN (Reason: muscle spasm) Qty: 28 0RF Rx Instructions: may make drowsy, do not drive during therapy diclofenac sodium 1 % gel 2 g topical QID Qty: 100 0RF Rx Instructions: apply to neck area. Do not use with other NSAIDs trazodone 50 mg Tablet 150 mg PO BEDTIME PRN (Reason: Sleep) lamotrigine 25 mg Tablet 25 mg PO BID norgestimate-ethinyl estradiol [Ortho Tri-Cyclen (28)] 0.18/0.215/0.25 mg-35 mcg (28) Tablet 1 tab PO QPM ondansetron HCl [Zofran] 4 mg tablet 4 mg PO Q6H PRN (Reason: nausea and vomiting) Qty: 10 0RF ondansetron 4 mg tablet,disintegrating 4 mg PO TID-QID PRN (Reason: nausea and vomiting) Qty: 10 0RF sumatriptan [Imitrex] 20 mg/actuation spray,non-aerosol 20 mg intranasal Q2H PRN (Reason: migraine headache) Qty: 6 0RF Rx Instructions: administer into one nostril as a single dose; if 2nd dose needed,administer into other nostril after at least 2 hrs, NTE 2 doses (40 mg) per episode methylprednisolone [Medrol (Haider)] 4 mg tablets,dose pack See Rx Instructions .ROUTE .COMPLEX Qty: 21 0RF Rx Instructions: orally per package directions hydrocodone-acetaminophen 5-325 mg tablet 1 tab PO Q4-6H PRN (Reason: pain) Qty: 10 0RF ketorolac 10 mg tablet 10 mg PO Q6H PRN (Reason: pain) Qty: 14 0RF tamsulosin [Flomax] 0.4 mg capsule 0.4 mg PO DAILY Qty: 30 0RF ciprofloxacin HCl [Cipro] 500 mg tablet 500 mg PO BID Qty: 20 0RF methylprednisolone [Medrol (Haider)] 4 mg tablets,dose pack 4 mg PO DAILY Qty: 21 0RF phenazopyridine [Pyridium] 200 mg tablet 200 mg PO TID PRN (Reason: pain) Qty: 6 0RF ibuprofen 800 mg tablet 800 mg PO TID PRN (Reason: pain) Qty: 30 0RF oxycodone 5 mg tablet 5 mg PO Q6H PRN (Reason: pain) Qty: 10 0RF Referrals: Alexus Tejada DO [Primary Care Provider] - Nishi Vinson MD [Physician] - Stand Alone Forms: Patient Portal/API
--- NOTE | 2024-04-07 19:33 | DI.US.S_ITS ---
PROCEDURE: US RENAL COMPLETE INDICATIONS: kidney stone 1.4cm on left since february, pain b/l TECHNIQUE: Real-time scanning was performed of the kidneys and bladder, with image documentation. COMPARISON: [facility], CT, CT IVP, 03/06/2024, 22:03. [facility], US, US RENAL COMPLETE, 02/17/2023, 23:23. FINDINGS: Kidneys: Kidneys are normal in size. Right kidney measures 10.6 cm long; left kidney measures 12.4 cm long. Right renal cortical thickness is 1.6 cm; left renal cortical thickness is 1.2 cm. Renal cortical echotexture is normal. There is a renal stone noted in the right ureteropelvic junction with associated mild right hydronephrosis. This was seen on prior CT. No left hydronephrosis or nephrolithiasis. No suspicious solid mass lesions. Left renal cyst noted. Bladder: Pre-void bladder volume is 170 mL. Post-void residual is 1 mL. Pre-void images demonstrate no intraluminal masses or stones. Small amount of debris along the posterior aspect of the urinary bladder wall. On pre-void images, bilateral ureteral jets were not seen with color Doppler interrogation. (Of note, ureteral jets may not be detectable in up to 25% of cases due to insufficient differences in specific gravity between ureteral and bladder urine). Miscellaneous: No free pelvic fluid. IMPRESSION: 1. Redemonstration of an obstructing 1.6 cm right ureteropelvic junction stone with associated mild right hydronephrosis. 2. No left-sided obstructive uropathy. 3. Mild amount of debris within the urinary bladder possibly related to cystitis if clinically appropriate. Dictated by: Lobo Riggs M.D. on 04/07/2024 at 21:36 Approved by: Lobo Riggs M.D. on 04/07/2024 at 21:41
[2024-04-07] MEDS: SODIUM CHLORIDE 0.9% 1,000 ML 1000 ML IV (20:01)
[2024-04-07] MEDS: HYDROMORPHONE 1 MG INJ IV (20:01)
[2024-04-07] MEDS: HYDROMORPHONE 0.5 MG INJ IV (21:41)
[2024-04-07 22:21] VITALS: BP 130/80; PULSE 78; RESP 18; TEMP 37.1; O2SAT 96
== END 2024-04-07 22:23 | disposition home or self-care (01) ==
PROVIDERS: Emergency Medicine; Emergency Provider Emergency Medicine; Family Provider Family Medicine; PCP Family Medicine
DX: N20.0 Calculus of kidney (principal)
CPT/HCPCS: 36415; 76770; 80053; 81003; 81015; 81025; 85025; 87077; 87086; 87186; 96361; 96374; 96375; 96376; 99284; J1170; J2405

== ENCOUNTER 2024-04-29 07:00 | Day surgery (SDC) | payer OTHER, MEDICAID, SELFPAY ==
[2024-04-19 08:23] VITALS: BMI 21.2
[2024-04-29] VITALS (11 sets, daily range): BP systolic 98–133; BP diastolic 62–92; PULSE 52–102; RESP 9–25; TEMP 36–37; O2SAT 95–100; BMI 21.6
--- NOTE | 2024-04-29 06:39 | DI.RAD.S_ITS ---
PROCEDURE: XR KUB INDICATIONS: Right nephrolithiasis TECHNIQUE: One view of the abdomen acquired. COMPARISON: [facility], CT, CT IVP, 03/06/2024, 22:03. FINDINGS: Surgical changes and devices: Bilateral pelvic clips. Bowel: Bowel gas pattern is normal. Soft tissues: The previously noted right renal pelvic stone is again noted, similar in size, measuring 1.4 x 0.8 cm on the previous CT. Plain film measurements are slightly exaggerated, measuring 1.6 x 0.9 cm. Visualized solid organ contours appear normal in size. Bones: No suspicious bony lesions. IMPRESSION: Right renal pelvic stone. Dictated by: Fernando Chávez M.D. on 04/29/2024 at 9:17 Approved by: Fernando Chávez M.D. on 04/29/2024 at 9:18
--- NOTE | 2024-04-29 07:26 | SUR.OPER ---
Lithotomy on padded ESWL bed, head on pillow, arms secured on padded arm boards at <90 degrees abduction. Legs secured in padded yellow fins stirrups.
[2024-04-29] MEDS: ACETAMINOPHEN IV 1,000 MG/100 ML VIAL 400 MG IV (07:30)
[2024-04-29] MEDS: LACTATED RINGERS 1,000 ML 42 ML IV ×2 (07:30→09:22)
--- NOTE | 2024-04-29 07:51 | PM.PREOP ---
Pre-operative Note Interval Note History & Physical reviewed/Exam performed by Physician: Yes Changes to H&P: No
[2024-04-29] MEDS: CEFAZOLIN 2 GM/100 ML PREMIX 100 ML IV (07:54)
--- NOTE | 2024-04-29 09:13 | PM.OP.1 ---
Operative Date/Time/Diagnoses Date of procedure: 04/29/24 Time of procedure: 09:05 Pre-op diagnosis: 1. 1.6 cm right renal calculus. 2. Intermittent right renal colic. Post-op diagnosis: same Procedure & Clinicians Procedure: 1. Cystoscopy/placement right ureteral stent (7 Russian by 22-32 cm). 2. Right extracorporeal shockwave lithotripsy (2000 shocks at maximum power level 6.5). Same procedure as scheduled: Yes Indications: 1. 1.6 cm right renal pelvic calculus. 2. Intermittent right renal colic. Surgeon: Nishi Vinson Click Yes if Unassisted: Yes Anesthesia Type: General Operative Notes Findings: Index calculus unchanged in size and position compared to preoperative imaging. Closure Type: not applicable Specimen(s): none sent Applied: other (Seven Russian by 22-32 cm multilink stent.) Estimated Blood Loss (mL): 0 Blood products transfused: none Procedure in detail: The patient was positioned supine administered general anesthesia. She was then repositioned in semi-lithotomy the lower abdomen, genitalia, and groin were then prepped and draped in sterile fashion. The 22 Russian mitchell endoscope was then passed lower urinary tract with findings of normal bladder urothelium throughout. Normal ureteral orifices bilaterally. There were some small mucosal calcifications seen in the region of the trigone. No neoplasm or diverticulum seen. A 0.35 hybrid guidewire was then advanced through the 22 Russian mitchell endoscope and advanced into the right collecting system under direct and fluoroscopic guidance. Over this a 7 Russian by 20-32 cm multilink stent was positioned, again under direct and fluoroscopic guidance. The stent was positioned appropriately in the hybrid guidewire was removed under direct visualization. NO RETRIEVAL LINE WAS LEFT ATTACHED. Next, the patient was repositioned in supine in the above described index calculus was localized in the X, Y, and Z plane. Lithotripsy was commenced at minimal power level for 200 shocks. A 2 minute pause was then conducted. Lithotripsy was then resumed and gradually increased to maximum power level of 6.5. The stone in his fragments were re localize as needed throughout the case. At 2000 shocks there was excellent evidence of stone comminution. Treatment was halted. The patient was then awakened, transferred to [facility], then transported recovery in stable condition. Complications: none Post-operative Condition: stable Disposition: PACU Plan for aftercare: Discharge home.
[2024-04-29] MEDS: fentaNYL 100 MCG/2 ML INJ IV ×2 (09:15→09:20)
[2024-04-29] MEDS: ONDANSETRON 4 MG/2 ML INJ IV (09:23)
[2024-04-29] MEDS: OXYCODONE IR 5 MG TABLET PO (09:28)
[2024-04-29] MEDS: MEPERIDINE 50 MG/ML INJ 25 MG IV (09:30)
--- NOTE | 2024-04-29 10:28 | SUR.PHASEII ---
Pt angry, wanting to leave. Pt wants stent removed. Dr Romo notified - stent to remain today. Pt states I just want out of here. Pt unwilling listen to discharge instruction as she already know all that stuff. pt discharged with D/C instruction, hat, strainer, and specimen container. Instructed to bring any stone specimens to the lab. Dr Vinson office to call pt on Thursday.
== END 2024-04-29 10:24 | disposition home or self-care (01) ==
PROVIDERS: Family Provider Family Medicine; PCP Family Medicine; Referring Provider Specialist; Visit Provider Specialist
PROC: (CPT 50590; principal; 2024-04-29 07:45)
PROC: (CPT 50590; 2024-04-29 07:45)
DX: N20.1 Calculus of ureter (principal)
CPT/HCPCS: 50590; 52332; 74018; J0136; J0690; J1100; J2175; J2405; J2704; J3010

== ENCOUNTER → 2024-05-03 15:16 | Outpatient (CLI) | payer OTHER, MEDICAID, SELFPAY ==
--- NOTE | 2024-05-03 15:17 | DI.RAD.S_ITS ---
PROCEDURE: XR KUB INDICATIONS: Post ESWL TECHNIQUE: One view of the abdomen acquired. COMPARISON: [facility], CR, XR KUB, 04/29/2024, 7:10. FINDINGS: Surgical changes and devices: A right-sided ureteral stent is seen. Multiple surgical clips are noted in bilateral pelvis. Bowel: Bowel gas pattern is nonobstructive. Fecal stasis in the colon is seen. No gross free air. Soft tissues: No suspicious abdominal calcifications. Visualized solid organ contours appear normal in size. Bones: No suspicious bony lesions. IMPRESSION: Right-sided ureteral stent in place. Previously described right renal calcification is no longer seen. No gross free air. Dictated by: Ken Urias M.D. on 05/03/2024 at 16:51 Approved by: Ken Urias M.D. on 05/03/2024 at 16:51
== END ==
PROVIDERS: Family Provider Family Medicine; PCP Family Medicine; Referring Provider Specialist; Visit Provider Specialist
DX: N20.0 Calculus of kidney (principal); Z96.0 Presence of urogenital implants
CPT/HCPCS: 74018

== ENCOUNTER → 2024-05-17 15:10 | Outpatient (CLI) | payer OTHER, MEDICAID, SELFPAY | PROVIDERS: Family Provider Family Medicine; PCP Family Medicine; Visit Provider Urology | DX: N20.0 Calculus of kidney (principal) | CPT/HCPCS: 87086 ==

== ENCOUNTER → 2024-05-30 13:41 | Outpatient (CLI) | payer OTHER, MEDICAID, SELFPAY | PROVIDERS: Family Provider Family Medicine; PCP Family Medicine; Visit Provider Urology | DX: N39.0 Urinary tract infection, site not specified (principal); N20.0 Calculus of kidney; Z87.442 Personal history of urinary calculi | CPT/HCPCS: 81002; 87077; 87086; 87186; 99213 ==